=== PATIENT | male | born 1990 | race Caucasian/White ===

== ENCOUNTER 2024-02-19 08:13 | Emergency (ER) | payer OTHER, SELFPAY ==
[2024-02-19 08:16] VITALS: BP 139/85; PULSE 93; RESP 18; TEMP 36.3; O2SAT 96; BMI 44.9
--- OUTSIDE RECORDS SUMMARY | 2024-02-19 08:16 | XMS_ITS | Continuity of Care Document ---
Author Name NwHIN User [facility] Address Unknown Organization Unknown Address Unknown Encounters FILTER APPLIED:Only known Encounters with Admission Date within the last 5 years Encounter Location Admission Discharge Billing Code Bar Tacker Sewing Machine Jp allan Emergency [facility] Outpatient [facility] Emergency [facility]
--- NOTE | 2024-02-19 09:05 | ED_ITS ---
HPI - Skin/Abscess/Foreign Bdy General Date Seen: 02/19/24 Chief complaint: Skin/Abscess/Foreign Body Stated complaint: abscess R inner thigh Time Seen by Provider: 02/19/24 08:36 Source: patient Mode of arrival: ambulatory Limitations: no limitations History of Present Illness HPI narrative: Patient is a 33-year-old male presenting to emergency department for an abscess. He states he 1st noticed the abscess on . He was prescribed doxycycline but pharmacy could not fill the script until Tuesday night. Was told to come to the emergency department if it opens up. He noticed it open in the middle the night any had blood on his legs. Did not notice any purulent discharge. 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 Denies weakness, numbness, fevers, chills. Does state it is tender to the touch. No other concerns. Related Data Home Medications ?Medication ?Instructions ?Recorded ?Confirmed citalopram .ROUTE 02/19/24 metoprolol tartrate .ROUTE 02/19/24 rivaroxaban .ROUTE 02/19/24 topiramate .ROUTE 02/19/24 triamterene .ROUTE 02/19/24 Allergies Allergy/AdvReac Type Severity Reaction Status Date / Time corn oil Allergy Unknown Verified 02/19/24 08:24 lisinopril Allergy Unknown Verified 02/19/24 08:24 sertraline Allergy Unknown Verified 02/19/24 08:24 Review of Systems Narrative: Pertinent systems reviewed and were negative unless stated in HPI Exam Narrative: Exam Narrative: Const: Well-nourished, Well-developed, in mild distress Eyes: PERRL, no conjunctival injection, and symmetrical lids HENT: Atraumatic external nose and ears. Moist mucous membranes. Removed MSK:Extremities w/o deformity, Normal Active ROM Skin: Abscess to the right inner thigh. About 2 x 2 cm. Neuro: Normal Muscle tone, No focal neurological deficits. Psych: Awake, Alert, & Oriented x3. Appropriate mood and affect. Const: Vital Signs, click to edit/add: Vital Signs - 24 hr 02/19/24 08:16 Temperature 97.3 F L Pulse Rate [Right Pulse Oximeter] 93 Respiratory Rate 18 Blood Pressure [Ri ght Upper Arm] 139/85 Pulse Oximetry 96 Oxygen Delivery Me thod Room Air Course Vital Signs Vital signs: Initial Vital Signs Temperature 97.3 F L 02/19/24 08:16 Temperature Source Temporal Artery Scan 02/19/24 08:16 Pulse Rate 93 02/19/24 08:16 Pulse Rhythm Regular 02/19/24 08:16 Respiratory Rate 18 02/19/24 08:16 Blood Pressure 139/85 02/19/24 08:16 Blood Pressure Mean 103 02/19/24 08:16 Blood Pressure Position Sitting 02/19/24 08:16 Pulse Oximetry 96 02/19/24 08:16 Oxygen Delivery Method Room Air 02/19/24 08:16 Vital Signs Temperature 97.3 F L 02/19/24 08:16 Pulse Rate 93 02/19/24 08:16 Respiratory Rate 18 02/19/24 08:16 Blood Pressure 139/85 02/19/24 08:16 Pulse Oximetry 96 02/19/24 08:16 Oxygen Delivery Method Room Air 02/19/24 08:16 Temperature 97.3 F L 02/19/24 08:16 Pulse Rate 93 02/19/24 08:16 Respiratory Rate 18 02/19/24 08:16 Blood Pressure 139/85 02/19/24 08:16 Pulse Oximetry 96 02/19/24 08:16 Oxygen Delivery Method Room Air 02/19/24 08:16 MDM - Skin/Abscess/Foreign Bdy MDM Narrative Medical decision making narrative: Patient is a 33-year-old male presenting for abscess to his right inner thigh. No other concerns. No signs of systemic disease. I did ultrasound the area and there is abscess but is rather she hyperechoic. Will try and drain it. Did try and drain using a scalpel without any purulent discharge. Did flush the inside of the abscess and still only blood return. At this point he is safe for discharge and will continue on the doxycycline. He is agreeable to this plan. Discharge Plan Discharge Clinical Impression: Abscess Patient Disposition: Home, Self-Care Condition: Stable Instructions: Abscess (ED) Additional Instructions: Continue to take your previously prescribed antibiotic. Return to emergency department for new or worsening symptoms. Prescriptions: No Action metoprolol tartrate .ROUTE rivaroxaban [Xarelto] .ROUTE topiramate .ROUTE triamterene .ROUTE citalopram .ROUTE Stand Alone Forms: [facility] Info Instructions
--- OUTSIDE RECORDS SUMMARY | 2024-02-19 09:15 | XMS_ITS | Clinical Summary ---
Author Organization [facility] Address [address] [place] [address] Care Team Providers Care Church Official Name Role Phone Erna Sierra PA-C Primary Care Provider [phone]- [phone] Marin Liu PA-C Unavailable [phone] Allergies Active Allergy Reactions Criticality Noted Date Comments [place]-Containing Products 08/17/2022 Lisinopril Other (See Comments) Low 02/02/2018 Abdominal pain Sertraline Other (See Comments) 04/19/2013 Insomnia PN: insomnia Medications omeprazole (PRILOSEC) [address] capsule Take 40 mg by mouth daily Active escitalopram (LEXAPRO) 10 MG tablet Take 5 mg by mouth daily Active metoprolol tartrate (LOPRESSOR) 50 MG tablet Take 50 mg by mouth 2 times daily Active topiramate (TOPAMAX) 100 MG tablet Take 100 mg by mouth daily Active triamterene-HCTZ (DYAZIDE) 37.5-25 MG capsule Take 1 capsule by mouth every morning Active busPIRone (BUSPAR) 5 MG tablet Take 5 mg by mouth 2 times daily Active clomiPHENE (CLOMID) 50 MG tablet Take 25 mg by mouth At Bedtime Active Multiple Vitamins-Minerals (MULTIVITAMIN ADULTS PO) Take 1 tablet by mouth daily Active Acetaminophen (TYLENOL 8 HOUR ARTHRITIS PAIN PO) Take 1,300 mg by mouth 2 times daily as needed Active oxyCODONE (ROXICODONE) 5 MG tabletIndications: Bilateral pulmonary embolism (H) Take 0.5 tablets (2.5 mg) by mouth every 4 hours as needed 5 tablet 3 Active senna-docusate (SENOKOT-S/PERICOL DIANA) 8.6-50 MG tabletIndications: Bilateral pulmonary embolism (H) Take 1 tablet by mouth daily 15 tablet 3 Active cyclobenzaprine (FLEXERIL) 10 MG tablet Take 1 tablet (10 mg) by mouth every 8 hours as needed for muscle spasms (neck or back pain) No driving a car or drinking alcohol for 8 hours after taking this medication. 20 tablet 3 Active rivaroxaban ANTICOAGULANT (XARELTO ANTICOAGULANT) 20 MG TABS tabletIndications: Bilateral pulmonary embolism (H) Take 1 tablet (20 mg) by mouth daily (with dinner) 90 tablet 3 4 Active Active Problems Problem Noted Date Diagnosed Date Bilateral pulmonary embolism 08/17/2022 Encounters Date Type Department Care Team Description 02/11/2024 MyC Medical Advice [facility] for Bleeding [facility] Disorders [address] [place] [phone] Marin Liu, PAToy Bilateral pulmonary embolism (H) (Primary Dx) 12/16/2023 Telephone [facility] for [facility]ot[facility] Disorders [address] [place] [phone] Piyush Mendoza Call To Schedule Appointment (Called to schedule in person or video annual clot with Marin/) 12/09/2023 Telephone [facility] for Bleeding [facility]otting Disorders [address] [place] [phone] Piyush Mendoza Call To Schedule Appointment (Called to schedule in person or video annual clot with Marin ) from Last 3 Months Immunizations Name Administration Dates Next Due COVID-19 MONOVALENT 12+ (Pfizer) 12/14/2020,02/08,02/07/2020 Social History Tobacco Use Types Packs/Day Years Used Date Smoking Tobacco: Passive Smo ke Exposure - Never Smoker Smokeless Tobacco: Current Alcohol Use Standard Drinks/Week Comments Yes 0 (1 standard drink = 0.6 oz pur e alcohol) twice per week Adolescent Education Answer Date Record ed Getting School Help Needed Not on file 10/29 Sex and Gender Information Value Date Recorded Sex Assigned at Not on file Legal Sex Male 9:12 PM TRAINING SYSTEMS OFFICER Gender Identity Not on file Sexual Orientation Not on file Last Filed Vital Signs Vital Sign Reading Time Taken Comments Blood Pressure 133/97 05/23/2023 3:12 AM CDT Pulse 105 05/23/2023 3:12 AM CDT Temperature 36.4 C (97.5 F) 05/23/2023 3:12 AM CDT Respiratory Rate 18 05/23/2023 3:12 AM CDT Oxygen Saturation 98% 05/23/2023 3:12 AM CDT Inhaled Oxygen Concentration - - Weight 170.2 kg (375 lb 3.6 oz) 05/23/2023 3:12 AM CDT Height 188 cm (6' 2) 05/23/2023 3:12 AM CDT Body Mass Index 48.18 05/23/2023 3:12 AM CDT Plan of Treatment Upcoming Encounters Date Type Department Care Team (Late st Contact Info) Description 03/02/2024 9:00 AM TRAINING SYSTEMS OFFICER Lab [facility] [address] [place] [address] 03/08/2024 2:00 PM TRAINING SYSTEMS OFFICER Virtual Visit [facility] for Ble[facility] [address] [place] [phone] Marin Liu, PAKellieC [address] [facility] [address] [place], [place] [phone] Health Maintenance Due Date Last Done Comments ADVANCE CARE PLANNING 1990 ANNUAL REVIEW OF HM ORDERS 1990 HEPATITIS B IMMUNIZATION (1 of 3 - 19+ 3-dose series) 2009 YEARLY PREVENTIVE VISIT 12/21/2018 12/21/2017 COVID-19 Vaccine ( season) 2023 11/09/2021, 12/14/2020, 02/28/2020, Additional history exists PHQ-2 (once per calendar year) 2024 DTAP/TDAP/TD IMMUNIZATION (2 - Td or Tdap) 08/02/2024 08/02/2014 RSV VACCINE (1 - 1-dose 75+ series) 2065 HIV SCREENING Completed 12/21/2017 HEPATITIS C SCREENING Completed 04/15/2023 INFLUENZA VACCINE Completed 02/09/2024, , 11/09/2021, Additional history exists HPV IMMUNIZATION Aged Out No longer e ligible based on patient's age to complete this topic MENINGITIS IMMUNIZATION Aged Out No l onger eligible based on patient's age to complete this topic Pneumococcal Vaccine: Pediatrics (0 to 5 Years) and At-Risk Patients (6 to 49 Years) Aged Out No longer eligible based on patient's age to complete this topic RSV MONOCLONAL ANTIBODY Aged Out No l onger eligible based on patient's age to complete this topic [facility] WC OTHER [facility] PROGRESSIVE [employer] Advance Directives For more information, please contact: [phone] * Full Code (Latest Code Status on File) Date Activated Date Inactivated Comments 08/17/2022 12:30 PM 08/17/2022 6:49 PM All basic a nd advanced life-sustaining interventions are performed as appropriate Question Answer Comments Code status determined by: Discussion with patie nt/ legal decision maker Care Teams Church Official Relationship Specialty Start Date End Date Erna Sierra PA-C [address] [place] [address] PCP - General 08/27/22 Marin Liu PA-C [address] [address] Assigned Cancer Care Provider 09/11/22
--- OUTSIDE RECORDS SUMMARY | 2024-02-19 09:15 | XMS_ITS | Encounter Summary ---
Author Organization [facility] Address [address], [place] [address] Care Team Providers Care Proj Engineer Name Role Phone Erna Sierra PA-C Primary Care Provider [phone]- [phone] Encounter Details Date Type Department Care Team (Late st Contact Info) Description 01/30/2019 Correspondence External to External, [place] [address] NOT MEDICALLY CERTIFIED -TSA Social History Tobacco Use Types Packs/Day Years Used Date Smoking Tobacco: Former Cigarettes Q uit: 02/07/2014 Smokeless Tobacco: Former Chew Quit: 02/07/2014 Alcohol Use Standard Drinks/Week Comments Yes 0 (1 standard drink = 0.6 oz pur e alcohol) 3 to 4 week Sex and Gender Information Value Date Recorded Sex Assigned at Not on file Gender Identity Not on file Sexual Orientation Not on file documented as of this encounter Plan of Treatment Upcoming Encounters Date Type Department Care Team (Late st Contact Info) Description 02/20/2024 9:30 AM VIBRATOR EQUIPMENT TESTER Appointment [facility] [address] General Surgery [address] [place] [address] MD [address] [place] [address] 03/13/2024 1:00 PM VIBRATOR EQUIPMENT TESTER Appointment [facility] [address] [place] [address] Erna Sierra PA-C [address] [place] [address] 03/30/2024 11:30 AM VIBRATOR EQUIPMENT TESTER Appointment Endoscopy at [facility] [address] [facility] [address] [facility] [place] [address] Doe Landeros MD [address] [place] [address] 08/08/2024 1:00 PM CDT Telemedicine Specialty Center [address] [place] [address]. [place], [place] [phone] Khadijah Tamayo MD [address] [place] [phone] documented as of this encounter Visit Diagnoses Not on filedocumented in this encounter Additional Health Concerns Infection Onset Date Last Indicated Resolved Time R/O COVID19 11/26/2019 11/26/2019 11/27/2019 6:46 AM CDT R/O COVID19 02/19/2021 02/19/2021 02/20/2021 2:03 AM VIBRATOR EQUIPMENT TESTER R/O COVID19 04/21/2021 04/21/2021 04/21/2021 8:52 PM CDT R/O COVID19 04/23/2021 04/23/2021 04/23/2021 6:52 PM CDT R/O COVID19 04/27/2021 04/27/2021 04/27/2021 6:03 PM CDT R/O COVID19 06/08/2021 06/08/2021 06/09/2021 12:3 5 AM CDT R/O COVID19 06/23/2021 06/23/2021 06/23/2021 8:31 PM CDT COVID19 06/23/2021 06/23/2021 07/04/2021 3:17 AM CDT R/O COVID19 03/01/2022 03/01/2022 03/01/2022 4:19 PM VIBRATOR EQUIPMENT TESTER documented as of this encounter Care Teams Proj Engineer Relationship Specialty Start Date End Date Erna Sierra PA-C [address] [place] [address] PCP - General Physician Mother Baby Rn 01/10/20 documented as of this encounter
--- OUTSIDE RECORDS SUMMARY | 2024-02-19 09:15 | XMS_ITS | Encounter Summary ---
Author Organization [facility] Address [address], [place] [address] Care Team Providers Care Mold Swabber Name Role Phone Erna Sierra PA-C Primary Care Provider [phone]- [phone] Encounter Details Date Type Department Care Team (Late st Contact Info) Description 08/22/2018 Correspondence Specialty Center 39[address] Pulmonary Medicine [address] [place] [address] Neurock, Veronica Godwin, REGISTERED OCCUPATIONAL THERAPIST, SOIL CHECKER [address] [place] [address] [address]IVE COMMERCIAL VEHICLE Social History Tobacco Use Types Packs/Day Years [...] st Contact Info) Description 02/20/2024 9:30 AM STATISTICAL MODELER Appointment Bronwyn Coats [place] [address] General Surgery [address] [place] [address] MD 14[address] [facility] [place] [address] 03/13/2024 1:00 PM STATISTICAL MODELER Appointment [facility] [address] [place] [address] Erna Sierra PA-C [address] [place] [address] 03/30/2024 11:30 AM STATISTICAL MODELER Appointment Endoscopy at [facility] [place] [address] [facility] [address] [place] [address]. [place] [address] Doe Landeros MD [address] [place] [address] 08/08/2024 1:00 PM CDT Telemedicine Specialty Center [address] [place] [address]. [place], [place] [phone] Khadijah Tamayo MD [address] [place] [phone] documented as of this encounter Visit Diagnoses Not on filedocumented in this encounter Additional Health Concerns Infection Onset Date Last Indicated Resolved Time R/O COVID19 11/26/2019 11/26/2019 11/27/2019 6:46 AM CDT R/O COVID19 02/19/2021 02/19/2021 02/20/2021 2:03 AM STATISTICAL MODELER R/O COVID19 04/21/2021 04/21/2021 04/21/2021 8:52 PM CDT R/O COVID19 04/23/2021 04/23/2021 04/23/2021 6:52 PM CDT R/O COVID19 04/27/2021 04/27/2021 04/27/2021 6:03 PM CDT R/O COVID19 06/08/2021 06/08/2021 06/09/2021 12:3 5 AM CDT R/O COVID19 06/23/2021 06/23/2021 06/23/2021 8:31 PM CDT COVID19 06/23/2021 06/23/2021 07/04/2021 3:17 AM CDT R/O COVID19 03/01/2022 03/01/2022 03/01/2022 4:19 PM STATISTICAL MODELER documented as of this encounter Care Teams Mold Swabber Relationship Specialty Start Date End Date Erna Sierra PA-C [address] [place] [address] PCP - General Physician Admissions Consultant 01/10/20 documented as of this encounter
--- OUTSIDE RECORDS SUMMARY | 2024-02-19 09:15 | XMS_ITS | Encounter Summary ---
Author Organization [facility] Address [address] [address] Care Team Providers Care Measurement And Verification Engineer Name Role Phone Erna Sierra PA-C Primary Care Provider [phone]- [phone] Encounter Details Date Type Department Care Team (Late st Contact Info) Description 08/11/2018 Correspondence None No Primary/Referring, Phy REFERRAL AND AUTH Social History Tobacco Use Types Packs/Day Years [...] st Contact Info) Description 02/20/2024 9:30 AM DATA ENTRY ASSOCIATE Appointment Bronwyn Coats [place] [address] General Surgery [address] [place] [address] MD 14[address] [place] [address] 03/13/2024 1:00 PM DATA ENTRY ASSOCIATE Appointment [facility] [address] [place] [address] Erna Sierra PA-C [address] [place] [address] 03/30/2024 11:30 AM DATA ENTRY ASSOCIATE Appointment Endoscopy at [facility] at [facility] [place] [place] [address] [facility] [place] [address] Doe Landeros MD [address] [place], [place] [address] 08/08/2024 1:00 PM CDT Telemedicine Specialty Center [address] [place] [address]. [place], [place] [phone] Khadijah Tamayo MD [address] [place] [phone] documented as of this encounter Visit Diagnoses Not on filedocumented in this encounter Additional Health Concerns Infection Onset Date Last Indicated Resolved Time R/O COVID19 11/26/2019 11/26/2019 11/27/2019 6:46 AM CDT R/O COVID19 02/19/2021 02/19/2021 02/20/2021 2:03 AM DATA ENTRY ASSOCIATE R/O COVID19 04/21/2021 04/21/2021 04/21/2021 8:52 PM CDT R/O COVID19 04/23/2021 04/23/2021 04/23/2021 6:52 PM CDT R/O COVID19 04/27/2021 04/27/2021 04/27/2021 6:03 PM CDT R/O COVID19 06/08/2021 06/08/2021 06/09/2021 12:3 5 AM CDT R/O COVID19 06/23/2021 06/23/2021 06/23/2021 8:31 PM CDT COVID19 06/23/2021 06/23/2021 07/04/2021 3:17 AM CDT R/O COVID19 03/01/2022 03/01/2022 03/01/2022 4:19 PM DATA ENTRY ASSOCIATE documented as of this encounter Care Teams Measurement And Verification Engineer Relationship Specialty Start Date End Date Erna Sierra PA-C [address] [place] [address] PCP - General Physician Supply Chain Technician 01/10/20 documented as of this encounter
--- OUTSIDE RECORDS SUMMARY | 2024-02-19 09:15 | XMS_ITS | Referral Summary ---
Author Organization [facility] Address [address] [place] [address] Care Team Providers Care Explosive Ordnance Handler Name Role Phone Erna Sierra PA-C Primary Care Provider +1- [phone] Marin Liu PA-C Unavailable [phone] Encounters Date Type Department Care Team Description 02/11/2024 MyC Medical Advice [facility] for Bleeding [facility] Clotting Disorders [address] [place] [phone] Marin Liu PA-C Bilateral pulmonary embolism (H) (Primary Dx) 12/16/2023 Telephone [facility] for Ble[facility] Clot[facility] Disorders [address] [facility] [address] [place] [phone] Piyush Mendoza Call To Schedule Appointment (Called to schedule in person or video annual clot with Marin/) 12/09/2023 Telephone [facility] for [facility] Disorders [address] [address] [place] [phone] Piyush Mendoza Call To Schedule Appointment (Called to schedule in person or video annual clot with Marin ) from Last 3 Months Allergies Active Allergy Reactions Criticality Noted Date Comments [place]-Containing Products 08/17/2022 Lisinopril Other (See Comments) Low [...] Date Diagnosed Date Bilateral pulmonary embolism 08/17/2022 Immunizations Name Administration Dates Next Due COVID-19 [...] on file Legal Sex Male 9:12 PM SOCIAL INSURANCE SPECIALIST Gender Identity Not on file Sexual Orientation [...] st Contact Info) Description 03/02/2024 9:00 AM SOCIAL INSURANCE SPECIALIST Lab [facility] [address] [place] [phone] 03/08/2024 2:00 PM SOCIAL INSURANCE SPECIALIST Virtual Visit [facility] for Bleeding and Clotting Disorders [address] [facility] [address] [place] [phone] Marin Liu, PAToy [address] [facility] [address] [place], [place] [address] Insurance [employer] OTHER [place] PROGRESSIVE [employer] INSURANCE Member Subscriber Plan / Payer (Ef fective 2012-Present) Name:Koffi Berger Relation to Subscriber:Employee Name:USHA ROBINS Date of :1990 (Home) [address]: [address] [place] [address] [address] [place] [address] Payer ID:[id number] Group ID:Not on file Type:Not on file Address: [address] Advance Directives For more information, please contact: [phone] * Full Code (Latest Code Status on File) Date Activated Date Inactivated Comments 08/17/2022 12:30 PM 08/17/2022 6:49 PM All basic a nd advanced life-sustaining interventions are performed as appropriate Question Answer Comments Code status determined by: Discussion with patie nt/ legal decision maker Care Teams Explosive Ordnance Handler Relationship Specialty Start Date End Date Erna Sierra PA-C [address] [place] [address] PCP - General 08/27/22 Marin Liu PA-C [address] [address] Assigned Cancer Care Provider 09/11/22
--- OUTSIDE RECORDS SUMMARY | 2024-02-19 09:15 | XMS_ITS | Encounter Summary ---
Author Organization [facility] Address [address] [address] Care Team Providers Care Campaign Advisor Name Role Phone Erna Sierra PA-C Primary Care Provider +1- [phone] Reason for Referral * Procedure/Equipment (Routine) - Incomplete Specialty Diagnoses / Procedures Referred By Contac t Referred To Contact Diagnoses Cutaneous abscess of right lower extremity Procedures US Lower Extremity Rt Soft Tissue Dione Lund PA-C [address] [place] [address] Referral ID Status Reason Start Date Expiration Date V isits Requested Visits Authorized [id number] Incomplete 02/16/2024 05/17/2025 1 1 IFF * Consult/Transfer Care (Routine) - New Request Specialty Diagnoses / Procedures Referred By Contac t Referred To Contact Diagnoses Cutaneous abscess of right lower extremity Dione Lund PA-C [address] [place] [address] Referral ID Status Reason Start Date Expiration Date V isits Requested Visits Authorized [id number] New Request 02/16/2024 05/17/2025 1 1 Scheduling Instructions Your clinician has recommended an appointment with [facility]. You can quickly make your appointment online at [facility] [employer]/schedule. You can also call [phone] for help scheduling your appointment. We suggest you call your health insurance company about your coverage and benefits for this appointment. Question Answer Appointment Urgency? Within 2 Days (designee calls specialty to coordinate care) Reason for visit? Abscess of right thigh, concern for soft tissue involvement. Patient is anticoagulated IFF Reason for Visit * Reason Comments Lump Pt reports painful r ed lump on inside of R thigh, first noticed yesterday. Encounter Details Date Type Department Care Team (Late st Contact Info) Description 02/16/2024 11:00 AM BAILIFF Office Visit [facility] [address] [place], [place] [phone] Dione Lund PA-C [address] [place] [address] Cutaneous abscess of right lower extremity (Primary Dx) Social History Tobacco Use Types Packs/Day Years Used Date Smoking Tobacco: Former Cigarettes 0.5 5 0 2010 - 06/11/2014 Passive Smoke Exposure: Never Smokeless Tobacco: Former Chew Quit: 02/07/2014 Alcohol Use Standard Drinks/Week Comments Yes 0 (1 standard drink = 0.6 oz pur e alcohol) occ PHQ-2 Answer Date Recorded PHQ-2 Score 0 02/18/2023 Sex and Gender Information Value Date Recorded Sex Assigned at Not on file Gender Identity Not on file Sexual Orientation Not on file documented as of this encounter Last Filed Vital Signs Vital Sign Reading Time Taken Comments Blood Pressure 128/86 02/16/2024 10:56 AM BAILIFF Pulse 75 02/16/2024 10:56 AM BAILIFF Temperature 36.9 C (98.4 F) 02/16/2024 10:56 AM BAILIFF Respiratory Rate - - Oxygen Saturation - - Inhaled Oxygen Concentration - - Weight - - Height - - Body Mass Index - - documented in this encounter Patient Instructions * Patient Instructions* Dione Lund PA-C - 02/16/2024 11:00 AM BAILIFF It was a pleasure to see you in clinic today! Doxycycline 100mg twice a day for 7 days Call to schedule general surgery consultation If it starts to drain on its own, go to the urgent care or ED IFF documented in this encounter Progress Notes * Dione Lund PA-C - 02/16/2024 11:00 AM CSTAddended by: DIONE LUND on: 02/16/2024 11:28 AM Modules accepted: Orders IFF * Dione Lund PA-C - 02/16/2024 11:00 AM CST Images from the original note were not included. Koffi Berger [id number] 1990 SUBJECTIVE: KOFFI BERGER is a 33 y.o. male who presents to the clinic for evaluation regarding a skin lesion that he has concern regarding cyst/abscess. He noticed a tender spot on the interior of his right thigh a few days ago. However, yesterday, began to notice redness, irritation, pain to the area. Pain is 5 to 6/10 with movement, minimal without pain. He denies any systemic symptoms such as fevers, chills. He is anticoagulated due to history of bilateral pulmonary embolisms. Currently taking Ctiagrd31 mg daily. He denies any similar lesions elsewhere on his body such as the groin, axilla. Feels like the lesion has been getting more painful due to consistent irritation and rubbing with his work p ants given the location. Denies any other concerns today. Of note, he has taking weekly Diflucan and using topical ketoconazole, topical nystatin for other devon intertrigo. He was evaluated for Devon intertrigo one-week ago though the lesion in his right thigh that has not present at that time. PAST MEDICAL AND SURGICAL HISTORY REVIEWED IN [facility] FAMILY AND SOCIAL HISTORY REVIEWED IN [facility] MEDICATIONS: Outpatient Medications Prior to Visit Medication Sig acetaminophen (TYLENOL) 325 MG tablet Take 2 Tablets (650 mg) by mouth every 6 hours as needed for Pain. busPIRone (BUSPAR) 5 MG tablet take one tablet by mouth twice a day clomiPHENE (CLOMID) 50 MG tablet Take 0.5 Tablets (25 mg) by mouth daily. Dicyclomine HCl (BENTYL OR) Take 1 Tab by mouth as needed. econazole nitrate (SPECTAZOLE) 1 % cream Apply to affected area daily Indications: Athlete's Foot (Patient not taking: Reported on 08/25/2023) escitalopram (LEXAPRO) 10 MG tablet TAKE ONE TABLET BY MOUTH EVERY DAY fluconazole (DIFLUCAN) 200 MG tablet Take 1 Tablet (200 mg) by mouth once a week. For 4 weeks hyoscyamine (LEVSIN/SL) 0.125 MG sublingual tablet Take 1-2 Tablets by mouth every 4 hours as needed. insulin pen needle ([employer] ULTRAFINE ANTONIO 2ND GEN) 32G X 4 MM Use to inject Saxenda as instructed. (Patient not taking: Reported on 02/16/2024) ketoconazole (NIZORAL) 2 % cream Apply topically daily. Indications: Ringworm of Groin Area, Ringworm of the Body LAGEVRIO 200 MG capsule Take by mouth. (Patient not taking: Reported on 02/09/2024) metoprolol tartrate (LOPRESSOR) 50 MG tablet take one tablet by mouth twice a day miconazole (DESENEX) 2 % powder Apply topically twice daily to underside of abdomen (Patient not taking: Reported on 02/09/2024) multivitamin (THERAGRAN) tablet Take 1 Tablet by mouth daily. nystatin (MYCOSTATIN) 358602 UNIT/GM powder Apply topically two times a day. omeprazole (PRILOSEC) 40 MG capsule TAKE ONE CAPSULE BY MOUTH EVERY DAY ondansetron (ZOFRAN) 4 MG tablet Take 1 Tablet (4 mg) by mouth every 8 hours as needed. rivaroxaban (XARELTO) 20 MG tablet Take 1 Tablet (20 mg) by mouth daily. sildenafil (REVATIO) 20 MG tablet Take 1 Tablet (20 mg) by mouth every 24 hours as needed. tirzepatide-weight management (ZEPBOUND) 15 MG/0.5ML pen injection Inject 0.5 mL (15 mg) subcutaneously once every week. topiramate (TOPAMAX) 100 MG tablet Take 1 Tablet (100 mg) by mouth daily. triamterene-hydrochlorothiazide (MAXZIDE-25) 37.5-25 MG tablet take one tablet by mouth every day [DISCONTINUED] clindamycin (CLEOCIN T) 1 % lotion Apply to rash area at bedtime. (Patient not taking: Reported on 08/25/2023) No facility-administered medications prior to visit. ALLERGIES: Gardner oil, Sertraline, and Lisinopril ROS:NO fever, chills, unexplained fatigue. No chest pain, shortness of breath, palpitations. No abdominal pain, nausea, vomiting, diarrhea. No black or bloody stools. No urinary symptoms. No abnormalheadaches or dizziness. OBJECTIVE BP 128/86 (BP Location: Right Arm, BP Cuff Size: Large) Pulse 75 Temp 36.9 ??C (98.4 ??F) (Oral) GENERAL: This is a well-developed, well-nourished male in no acute distress. HEENT: Head AT/NC. External ears normal. TMs clear, bony landmarks visible. Nares patent, turbinates without lesions or drainage. Oropharynx non- erythematous. Uvula midline. Dentition in good condition. NECK: Supple, thyroid without enlargement or nodules. No lymphadenopathy. LUNGS: Symmetrical expansion, CTA in all kaminski bilaterally. HEART: Regular rate and rhythm. No murmurs. ABDOMEN: Soft, non-tender, no guarding or masses. No HSM. EXTREMITIES: No edema. Strong and equal peripheral pulses. SKIN: Fluctuant, approximately 1 in x 1 in abscess of the right medial thigh with overlying cellulitis. See below PSYCH: Well-oriented. Appropriate mood and affect. NEURO: Speech and gait are normal. [facility] right [facility] thigh [employer] [facility] Location: right medial thigh ASSESSMENT/PLAN: Koffi was seen today for lump. Diagnoses and all orders for this visit: Cutaneous abscess of right lower extremity - doxycycline monohydrate (MONODOX) 100 MG capsule; Take 1 Capsule (100 mg) by mouth two times a day for 7 days. - Surgery Consult-Adults - US Lower Extremity Rt Soft Tissue; Future Discussed with the patient that his skin lesion is consistent with an abscess with overlying cellulitis. At this time given unknown depth of the lesion, concern for soft tissue involvement and patient's anticoagulation status, I recommend urgent follow up with with general surgeon for incision and drainage rather than performing incision and drainage in the office today. In the meantime, should start with doxycycline 100 mg b.i.d.. Additionally recommend ultrasound of the area for further evaluation prior to his surgical consultation. If the lesion starts to drain on its own or you develop systemic symptoms such as fevers, chills, recommend urgent care or emergency department follow up. Dione uLnd PA-C NB: A voice recognition dictation system was used for this note. Please excuse any typographical errors. IFF documented in this encounter Plan of Treatment Upcoming Encounters Date Type Department Care Team (Late st Contact Info) Description 02/20/2024 9:30 AM BAILIFF Appointment [facility] [address] General Surgery [address] [place] [address] MD [address] [place] [address] 03/13/2024 1:00 PM BAILIFF Appointment [facility] [address] [place], [place] [phone] Erna Sierra PA-C [address] [place] [address] 03/30/2024 11:30 AM BAILIFF Appointment Endoscopy at [facility] [place] at [facility] [address] [facility] [place] [address] [place] [address] [place] [address] 08/08/2024 1:00 PM CDT [facility] [address] [facility] [address] [place] [address]. [place] [address] Khadijah Tamayo MD [address] [place] [phone] Scheduled Referrals Name Type Priority Associated Diagnoses Orde r Schedule Surgery Consult-Adults Referral Routine Cutaneous abscess of right lower extremity Ordered: 02/16/2024 documented as of this encounter Results * US Lower Extremity Rt Soft Tissue (02/17/2024 2:00 PM BAILIFF) Anatomical Region Laterality Modality Lower Extremity Ultrasound 02/17/2024 1:42 PM BAILIFF Narrative 02/17/2024 2:10 PM BAILIFF Soft tissue ultrasound of the medial right upper leg COMPARISON: None FINDINGS: 2.8 x 2.7 x 1.3 cm heterogeneous collection in the subcutaneous fat with peripheral hyperemia. Findings would be compatible with abscess the appropriate clinical setting. Procedure Note Julio Cesar Isbell MD - 02/17/2024 Soft tissue ultrasound of the medial right upper leg COMPARISON: None FINDINGS: 2.8 x 2.7 x 1.3 cm heterogeneous collection in the subcutaneousfat with peripheral hyperemia. Findings would be compatible with abscessthe appropriate clinical setting. Dione Lund PA-C RAD US documented in this encounter Visit Diagnoses Diagnosis Cutaneous abscess of right lower extremity- Primary Cellulitis and abscess of leg, except foot Cutaneous abscess of right lower extremity Cellulitis and abscess of leg, except foot documented in this encounter Care Teams Campaign Advisor Relationship Specialty Start Date End Date Erna Sierra PA-C [address] [place] [address] PCP - General Physician Sports Medicine Specialist 01/10/20 documented as of this encounter
--- OUTSIDE RECORDS SUMMARY | 2024-02-19 09:15 | XMS_ITS | Encounter Summary ---
Author Organization [facility] Address [address], [place] [address] Care Team Providers Care Revenue Director Name Role Phone Erna Sierra PA-C Primary Care Provider [phone]- [phone] Encounter Details Date Type Department Care Team (Late st Contact Info) Description 08/30/2018 Correspondence None No Primary/Referring, Phy STOP BANG DOT MARTIR PROTOCOL Social History Tobacco Use Types Packs/Day Years [...] st Contact Info) Description 02/20/2024 9:30 AM WEEDER THINNER Appointment [facility] [address] General Surgery [address] [place] [address] Martinez aLne MD [address] [place], [place] [address] 03/13/2024 1:00 PM WEEDER THINNER Appointment [facility] [place] [address] [facility] [place] [address] Erna Sierra PA-C [address] [place] [address] 03/30/2024 11:30 AM WEEDER THINNER Appointment Endoscopy at [facility] at [facility] [address] [facility] [address] [facility] [place] [address] Doe Landeros MD [address] [place], [place] [address] 08/08/2024 1:00 PM CDT Telemedicine Specialty Center [address] [place] [address]. [place], [place] [phone] Khadijah Tamayo MD [address] [place], [place] [phone] documented as of this encounter Visit Diagnoses Not on filedocumented in this encounter Additional Health Concerns Infection Onset Date Last Indicated Resolved Time R/O COVID19 11/26/2019 11/26/2019 11/27/2019 6:46 AM CDT R/O COVID19 02/19/2021 02/19/2021 02/20/2021 2:03 AM WEEDER THINNER R/O COVID19 04/21/2021 04/21/2021 04/21/2021 8:52 PM CDT R/O COVID19 04/23/2021 04/23/2021 04/23/2021 6:52 PM CDT R/O COVID19 04/27/2021 04/27/2021 04/27/2021 6:03 PM CDT R/O COVID19 06/08/2021 06/08/2021 06/09/2021 12:3 5 AM CDT R/O COVID19 06/23/2021 06/23/2021 06/23/2021 8:31 PM CDT COVID19 06/23/2021 06/23/2021 07/04/2021 3:17 AM CDT R/O COVID19 03/01/2022 03/01/2022 03/01/2022 4:19 PM WEEDER THINNER documented as of this encounter Care Teams Revenue Director Relationship Specialty Start Date End Date Erna Sierra PA-C [address] [place] [address] PCP - General Physician Stump Shooter 01/10/20 documented as of this encounter
--- OUTSIDE RECORDS SUMMARY | 2024-02-19 09:15 | XMS_ITS | Encounter Summary ---
Author Organization [place] Address [address] [place] [address] Care Team Providers Care Golf Tournament Consultant Name Role Phone Erna Sierra PA-C Primary Care Provider +1- [phone] Marin Liu PA-C Unavailable [phone] Encounter Details Date Type Department Care Team (Late st Contact Info) Description 02/18/2023 MyC Medical Advice [facility] Disorders [address] [address] [address] [place] [phone] Marin Liu PA-C [address] [place] [address] Bilateral pulmonary embolism (H) (Primary Dx) Social History Tobacco Use Types [...] on file Legal 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 Gender Identity Not on file Sexual Orientation Not on file documented as of this encounter Plan of Treatment Upcoming Encounters Date Type Department Care Team (Late st Contact Info) Description 03/02/2024 9:00 AM CONSTRUCTION INSPECTOR Lab [facility] [address] [place] [address] 03/08/2024 2:00 PM CONSTRUCTION INSPECTOR Virtual Visit [facility] [address] [place] [address] [address] [place] [address] Marin Liu PA-C [address] [place] [address] [address] [place] [address] documented as of this encounter Results * (ABNORMAL) Hepatic function panel (02/28/2023 9:31 AM CONSTRUCTION INSPECTOR) Protein Total 7.6 6.4 - 8.3 g/dL 02/28/2023 6:01 PM CONSTRUCTION INSPECTOR [facility] Albumin 4.0 3.5 - 5.2 g/dL 02/28/2023 6:01 PM CONSTRUCTION INSPECTOR [facility] Bilirubin Total 0.4 <=1.2 mg/dL 02/28/2023 6:01 PM CONSTRUCTION INSPECTOR [facility] Alkaline Phosphatase 69 40 - 150 U/L 02/28/2023 6:01 PM CONSTRUCTION INSPECTOR [facility] Comment:Reference intervals for this test were updated on 12/21/2022 to more accurately reflect our healthy population. There may be differences in the flagging of prior results with similar values performed with this method. Interpretation of those prior results can be made in the context of the updated reference intervals. AST 46(H) 0 - 45 U/L 02/28/2023 6:01 PM CONSTRUCTION INSPECTOR [facility] Comment:Reference intervals for this test were updated on 07/19/2022 to more accurately reflect our healthy population. There may be differences in the flagging of prior results with similar values performed with this method. Interpretation of those prior results can be made in the context of the updated reference intervals. ALT 72(H) 0 - 70 U/L 02/28/2023 6:01 PM CONSTRUCTION INSPECTOR [facility] Comment:Reference intervals for this test were updated on 07/19/2022 to more accurately reflect our healthy population. There may be differences in the flagging of prior results with similar values performed with this method. Interpretation of those prior results can be made in the context of the updated reference intervals. Bilirubin Direct <0.20 0.00 - 0.30 mg/dL 02/28/2023 6:01 PM CONSTRUCTION INSPECTOR [facility] Blood BLOOD SPECIMEN / Unknown Venipuncture / Unknown 02/28/2023 9:31 AM CONSTRUCTION INSPECTOR 02/28/2023 9:32 AM CONSTRUCTION INSPECTOR us Marin Liu PA-C LAB - BLOOD ORDERABLES Final R esult [facility] [address] [facility], [address] [address], [facility] [phone] documented in this encounter Visit Diagnoses Diagnosis Bilateral pulmonary embolism (H)- Primary Other pulmonary embolism and infarction documented in this encounter Care Teams Golf Tournament Consultant Relationship Specialty Start Date End Date Erna Sierra PA-C [address] [place] [address] PCP - General 08/27/22 Marin Liu PA-C [address] [place] [address] Assigned Cancer Care Provider 09/11/22 documented as of this encounter
--- OUTSIDE RECORDS SUMMARY | 2024-02-19 09:15 | XMS_ITS | Encounter Summary ---
Author Organization [place] Address [address] [place] [address] Care Team Providers Care Remote Sensing Research Scientist Name Role Phone Erna Sierra PA-C Primary Care Provider [phone]- [phone] Marin Liu PA-C Unavailable [phone] Encounter Details Date Type Department Care Team (Late st Contact Info) Description 02/11/[address] 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 Gender Identity Not on file Sexual Orientation Not on file documented as of this encounter Miscellaneous Notes * Addendum Note - Hannah Sosa RN - 02/11/2024 6:42 PM CSTAddended by: HANNAH SOSA on: 02/13/2024 09:33 AM Modules accepted: Orders RVISOR [employer]ARM documented in this encounter Plan of Treatment Upcoming Encounters Date Type Department Care Team (Late st Contact Info) Description 03/02/2024 9:00 AM SUPERVISOR TURKEY FARM Lab [facility] [address] [place] [address] 03/08/2024 2:00 PM SUPERVISOR TURKEY FARM Virtual Visit [facility] for Bleeding and Clot[facility] Disorders [address] [place] [address] [address] [place] [address] Marin Liu PA-C [address] [place] [address] Scheduled Orders Name Type Priority Associated Diagnoses Orde r Schedule Creatinine Lab Routine Bilateral pulmonary embolism (H) Expected: 02/13/2024 (Approximate), Expires: 02/12/2025 documented as of this encounter Visit Diagnoses Diagnosis Bilateral pulmonary embolism (H)- Primary Other pulmonary embolism and infarction documented in this encounter Care Teams Remote Sensing Research Scientist Relationship Specialty Start Date End Date Eran Sierra PA-C [address] [place] [address] PCP - General 08/27/22 Marin Liu PA-C [facility] [place] [address] Assigned Cancer Care Provider 09/11/22 documented as of this encounter
--- OUTSIDE RECORDS SUMMARY | 2024-02-19 09:15 | XMS_ITS | Continuity of Care Document ---
Author Name [facility] Address Unknown Organization Unknown Address Unknown Encounters FILTER APPLIED:Only known Encounters with Admission Date within the last 5 years Encounter Location Admission Discharge Billing Code Call Center Manager Jp allan [facility]
--- OUTSIDE RECORDS SUMMARY | 2024-02-19 09:15 | XMS_ITS | Encounter Summary ---
Author Organization [facility] Address [address] [address] Care Team Providers Care Sound Designer Name Role Phone Erna Sierra PA-C Primary Care Provider [phone]- [phone] Reason for Referral * Procedure/Equipment (Routine) - New Request Specialty Diagnoses / Procedures Referred By Contlidya t Referred To Contact Diagnoses Polyp of colon, unspecified part of colon, unspecified type Procedures Colonoscopy Screening Doe Landeros MD [address] [place] [address] Referral ID Status Reason Start Date Expiration Date V isits Requested Visits Authorized [id number] New Request 12/19/2023 12/18/2025 1 1 T PROTECTION OFFICER Encounter Details Date Type Department Care Team (Late st Contact Info) Description 12/19/2023 Notes/Orders Endoscopy at [facility] at [address] [place], [place] [address] Doe Landeros MD [address] [place] [phone] Polyp of colon, unspecified part of colon, unspecified type (Primary Dx) Social History Tobacco Use Types [...] st Contact Info) Description 02/20/2024 9:30 AM PLANT PROTECTION OFFICER Appointment [facility] [place] [address] General Surgery [address] [place] [phone] [address] MD [address] [place] [address] 03/13/2024 1:00 PM PLANT PROTECTION OFFICER Appointment [facility] [address] [place] [address] Erna Sierra PA-C [address] [place] [address] 03/30/2024 11:30 AM PLANT PROTECTION OFFICER Appointment Endoscopy at [facility] at [place] [address] [place] [address] Doe Landeros MD [address] [place] [address] 08/08/2024 1:00 PM CDT Telemedicine Specialty Center [address] [place] [address]. [place], [place] [phone] Khadijah Tamayo MD [address] [place], [place] [phone] Scheduled Orders Name Type Priority Associated Diagnoses Orde r Schedule Colonoscopy Screening GI Routine Polyp of colon, unspecified part of colon, unspecified type 1 Occurrences starting 12/19/2023 until 12/18/2025 documented as of this encounter Visit Diagnoses Diagnosis Polyp of colon, unspecified part of colon, unspecified type- Primary documented in this encounter Care Teams Sound Designer Relationship Specialty Start Date End Date Erna Sierra PA-C [address] [place] [address] PCP - General Physician Shift Boss 01/10/20 documented as of this encounter
--- OUTSIDE RECORDS SUMMARY | 2024-02-19 09:15 | XMS_ITS | Encounter Summary ---
Author Organization [facility] Address [address], [place] [address] Care Team Providers Care Media Strategist Name Role Phone Erna Sierra PA-C Primary Care Provider +1- [phone] Reason for Visit * Reason Comments Plan of Care Encounter Details Date Type Department Care Team (Late st Contact Info) Description 02/16/2024 Telephone [facility] [address] [place] [address] Mark Mccloud PA-C [address] [place] [address] Plan of Care Social History Tobacco Use Types Packs/Day Years [...] on file documented as of this encounter Nursing Notes * Mark Mccloud PA-C - 02/16/2024 11:29 AM CST Called and spoke with the patient regarding suspected abscess. Discussed that after further thought, I do recommend moving forward with an ultrasound of the soft tissue prior to his upcoming appointment with General surgery. Mark Mccloud PA-C CRINOLOGY PHYSICIAN documented in this encounter Plan of Treatment Upcoming Encounters Date Type Department Care Team (Late st Contact Info) Description 02/20/2024 9:30 AM ENDOCRINOLOGY PHYSICIAN Appointment [facility] [address] General Surgery [address] [place] [phone] [address] MD [address] [place] [address] 03/13/2024 1:00 PM ENDOCRINOLOGY PHYSICIAN Appointment [facility] [address] [place] [address] Erna Sierra PA-C [address] [place] [address] 03/30/2024 11:30 AM ENDOCRINOLOGY PHYSICIAN Appointment Endoscopy at [facility] at [facility] [address] [place] [address] Doe Landeros MD [address] [place] [address] 08/08/2024 1:00 PM CDT [facility] [address] [place] [address]. [place], [place] [phone] Khadijah Tamayo MD [address] [place] [phone] documented as of this encounter Visit Diagnoses Not on filedocumented in this encounter Care Teams Media Strategist Relationship Specialty Start Date End Date Erna Sierra PA-C [address] [place] [address] PCP - General Physician Sports Fitness And Wellness Director 01/10/20 documented as of this encounter
--- OUTSIDE RECORDS SUMMARY | 2024-02-19 09:15 | XMS_ITS | Encounter Summary ---
Author Organization [facility] Address [address] [address] Care Team Providers Care Teacher Home Therapy Name Role Phone Erna Sierra PA-C Primary Care Provider +1- [phone] Reason for Referral * Medication Prior Authorization - Closed Specialty Diagnoses / Procedures Referred By John t Referred To Contact Khadijah Tamayo MD [address] [place] [id number] Referral ID Status Reason Start Date Expiration Date Visits Re quested Visits Authorized [id number] Closed 1 1 CONTROL PILOT Encounter Details Date Type Department Care Team (Latest Contact Info) Description 02/09/2024 1:30 PM PEST CONTROL PILOT Tele[facility]icine Specialty [facility] [address] [place] [address]. 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) (Primary Dx); Morbid obesity (HRC); Low testosterone; Fatty liver (HRC); Prediabetes; Obesity, Class III, BMI 40-49.9 (morbid obesity) (HRC) Social History Tobacco Use Types Packs/Day Years [...] Sign Reading Time Taken Comments Blood Pressure - - Pulse - - Temperature - - Respiratory Rate - - Oxygen Saturation - - Inhaled Oxygen Concentration - - Weight 151.5 kg (334 lb) 02/09/2024 1:34 PM PEST CONTROL PILOT Height - - Body Mass Index 43.77 02/09/2024 8:41 AM PEST CONTROL PILOT documented in this encounter Patient Instructions * Patient Instructions* Khadijah Tamayo MD - 02/09/2024 1:30 PM PEST CONTROL PILOT Plan: - continue clomid 25 mg daily - check testosterone, PSA, Hct in 08/2024 - Continue Zepbound 15 mg weekly. - Continue topiramate 100 mg daily - Add weight training exercise 3-4 days/week Thank you for choosing the Endocrinology Clinic at [facility]. Treating physician: Khadijah Tamayo MD Need to reach us after your appointment? For non-urgent needs, consider using Online Patient Services to send a secured email to your care team. For quick questions related to your visit, there is nocharge and no waiting on hold. For more complex questions that requires your provider more than 5 minutes to address (and more than 7 days from your visit), an ???E-visit?? will be initiated. E-visits are typically covered by insurance; cost varies depending on the time the provider needs to determine the treatment right for you. - 5-10 minutes: $42 - 11-20 minutes: $81 - >= 21 minutes: $120 For quick and convenient communication, log-on to [facility], click on the Messages tab on the top, then click Contact your care team (Send a message) and follow the prompts, and we will respond within 1-2 business days. If needed call our office with any questions at [phone] For clinic and lab appointments call: [phone] or schedule on-line [email or web address] Care Line (after 5 PM, weekends and holidays): [phone] TEST RESULTS: We will communicate your test results using your preferred method, which we asked youabout during your visit. Depending on the circumstances, we may also call you to further discuss the results. It may take up to 2 weeks for some tests to be completed (send out tests). If you don't receive any information about your test within the expected time frame discussed during your visit with us, please call one of our nurses (see the phone numbers mentioned above). CANCELLATION OF APPOINTMENTS: If you are not able to keep your appointment, please call and cancel your appointment at least 48 hour prior to your scheduled appointment, or as soon as you can. This will help us schedule other patients who are waiting for an appointment. MEDICATION REFILLS: Please contact your pharmacy for refills. Your pharmacy will then contact our clinic if needed. However, please call our clinic if there is any problem. MEDICATIONS NEEDING PRIOR AUTHORIZATION: Today your clinician may have ordered a medication that may or may not need a prior authorization in order to be filled. The prescription has been sent to ourprior authorization team, who will verify with your insurance carrier if a prior authorization is required. If a prior authorization is required, expect to hear from the pharmacy regarding status and next steps within 5-7 business days. If you have not heard about the status of your medication within 5-7 business days, please call our clinic. CONTROL PILOT documented in this encounter Progress Notes * Khadijah Tamayo MD - 02/09/2024 1:30 PM CST Endocrine Return Patient Note Reason for visit: low testosterone HPI: Koffi Berger is a 33 y.o. old male seen in follow up. Patient has h/o morbid obesity, OCA on CPAP, HTN, anxiety/depression. He presented low energy, low libido and ED. Infertility for 2 years. Semen analysis was normal in Fall 2020. Labs checked in 05/2021 and 07/2021 showed low testosterone 118, 120. low LH, FSH.He went to bed at 8PM, using CPAP regularly. Has gained 100 lbs in 2 years - since started the new job and the pandemic as well, decreased activity. 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 Has h/o TBI and concussion when he was in high school. MRI brain in 08/2021 showed no pituitary lesion. Denies h/o testicular injury or infection Denies h/o chronic opioids use Denies h/o anabolic steroids use Denies h/o blood clot. Denies family h/o prostate cancer Strong family h/o thyroid disease. Due to infertility desire, clomid started in 08/2021 and work on weight loss with topiramate. Symptoms improves and able to conceive as well. Ozempic is not covered by insurance. Saxenda is approved but back ordered. Phentermine 10/2022-12/2022 Zepbound 02/2023-current 09/2022 BW 440 lb, BMI 56.3 11/2022 BW 437 lb 04/2023 BW 388 lb, BMI 49.82 09/21/2023 BW 358 lb, BMI 47.23 02/09/2024 BW 334 lb, BMI 43.77 This visit Feeling well. Lost some weight, but has gained some weight. Tolerating 15 mg Zepbound well. Energy is good as well as libido. Used to lift weigth with high school. Still taking topiramate, he thinks it continues to work. Endocrine meds: - clomid 25 mg daily - topiramate 100 mg daily - Zepbound 03/2023 - currently 15 mg weeky Review of Systems: Please see HPI as well. A 10 pt ROS was completed and negative other than positive for above. Past Medical History reviewed and updated in chart Family History reviewed and updated in chart Social History reviewed and updated in chart Labs: reviewed with patient Component Latest Ref Rng 04/12/2023 HGB A1C <=5.6 % 5.2 Component Latest Ref Rng 07/21/2023 Sex Horm Bind Glob 13 - 74 nmol/L 42 Testosterone 200 - 745 ng/dL 464 Testosterone,Free 3.1 - 12.8 ng/dL 8.3 Testosterone, Bioav 71.7 - 300.0 ng/dL 194.5 HCT 38.8 - 50.0 % 43.5 Prostatic Spec Ag 0.0 - 4.0 ng/mL 0.5 MRI brain 08/2021 Ultimately homogeneous enhancement of the pituitary. No definite pituitary mass or foci of differential enhancement identified. Midline pituitary stalk. Unremarkable suprasellar structures and cavernous sinus regions on these images. No findings to suggest pituitary adenoma. Assessment and Plan: #Low testosterone #Hypogonadotrophic hypogonadism Presented with fatigue, low libido and ED. Labs checked in 05/2021 at 1 PM which showed low testosterone 118. 8AM free testosterone was also low as well as LH, FSH, so compatible with hypogonadotrophic hypogonadism which he has risks due to h/o morbid obesity (BMI 59.5), h/o MARTIR. MRI brain no pituitary lesion. Clomid started in 08/2021 with good result, improvement of ED, energy and able to conceive. Testosterone level improved since 12/2021, most recent 01/2024. Will continue clomid since he has benefit from it and work on weight loss to restore his sex hormone again. - continue clomid 25 mg daily - check testosterone, PSA, Hct in 08/2024 #Severe obesity C/b HTN, MARTIR, and possible contributes to low testosterone. Discussed with the patient about weight loss strategy with negative energy balance, decrease energyintake and increase energy output. Diet control is 80% of weight loss, physical activity is 20%. Weight loss medications help suppressing the appetite, so will help limiting food intake to meet the goal. Ozempic is not covered by insurance. So started topiramate. Appetite lower, 14 lb weight loss whichis ok but slow.Saxenda approved, but back ordered. Phentermine 15 mg started in 10/2022-12/2022. Zepbound approved and started in 02/2023 with excellent response. - Continue Zepbound 15 mg weekly. - Continue topiramate 100 mg daily - Add weight training exercise 3-4 days/week #Prediabetes - resolved A1c 5.7% 09/2022. LDL 130 which is still acceptable. A1c normalized 5.2% in 04/2023. - Work on weight loss as above. - check a1c and ldl in yearly #Elevated liver enzymes -- resolved #Fatty liver - Continue weight loss as above. Follow up in 6 months This visit was conducted via video. Location of clinician clinic Location of patient home. Billing based on: Complexity Khadijah Tamayo MD Endocrinology staff CONTROL PILOT documented in this encounter Nursing Notes * Katja Mace LPN - 02/09/2024 1:30 PM CST The prior authorization for tirzepatide-weight management (ZEPBOUND) 15 MG/0.5ML pen injection Prior Authorization not required for patient/medication : Pharmacy has been notified. Katja Mace LPN CONTROL PILOT documented in this encounter Plan of Treatment Upcoming Encounters Date Type Department Care Team (Late st Contact Info) Description 02/20/2024 9:30 AM PEST CONTROL PILOT Appointment [facility] [address] General Surgery [address] [place] [phone] MD 14[address] [place] [address] 03/13/2024 1:00 PM PEST CONTROL PILOT [place]ment [facility] [address] [place] [address] Erna Sierra PA-C [address] [place] [address] 03/30/2024 11:30 AM PEST CONTROL PILOT Appointment Endoscopy at [facility] [address] [facility]. [place], [place] [phone] Doe Landeros MD [address] [place] [address] 08/08/2024 1:00 PM CDT Telemedicine Specialty Center [address] [place] [address]. [place], [place] [phone] Khadijah Tamayo MD [address] [place] [address] documented as of this encounter Visit Diagnoses Diagnosis Hypogonadotropic hypogonadism syndrome, male (HRC)- Primary Other testicular hypofunction Morbid obesity (HRC) Morbid obesity Low testosterone Other testicular hypofunction Fatty liver (HRC) Other chronic nonalcoholic liver disease Prediabetes Other abnormal glucose Obesity, Class III, BMI 40-49.9 (morbid obesity) (HRC) Morbid obesity documented in this encounter Care Teams Teacher Home Therapy Relationship Specialty Start Date End Date Erna Sierra PA-C [address] [place] [address] PCP - General Physician Button Grader 01/10/20 documented as of this encounter
--- OUTSIDE RECORDS SUMMARY | 2024-02-19 09:15 | XMS_ITS | Encounter Summary ---
Author Organization [facility] Address [address] [place] [address] Care Team Providers Care Manager Loan Name Role Phone Erna Sierra PA-C Primary Care Provider +1- [phone] Reason for Visit * Reason Comments RASH Groin, back of legs, and lower abdomen Encounter Details Date Type Department Care Team (Late st Contact Info) Description 02/09/2024 9:00 AM PROCUREMENT ASSISTANT Office Visit [facility] [address] [place], [place] [phone] Rosalba Holman, PALEOLOGIST, WEBSPHERE PROCESS SERVER DEVELOPER [address] [place], [place] [phone] Screening for colon cancer (Primary Dx); Essential hypertension (HRC); Obesity, Class III, BMI 40-49.9 (morbid obesity) (HRC); Need for vaccination; Intertrigo; Tinea corporis Social History Tobacco Use Types Packs/Day Years [...] Sign Reading Time Taken Comments Blood Pressure 127/83 02/09/2024 8:41 AM PROCUREMENT ASSISTANT Pulse 54 02/09/2024 8:41 AM PROCUREMENT ASSISTANT Temperature - - Respiratory Rate - - Oxygen Saturation - - Inhaled Oxygen Concentration - - Weight 155.9 kg (343 lb 9.6 oz) 02/09/2024 8:41 AM PROCUREMENT ASSISTANT Height 186.1 cm (6' 1.25) 02/09/2024 8:41 AM CS T Body Mass Index 45.02 02/09/2024 8:41 AM PROCUREMENT ASSISTANT documented in this encounter Patient Instructions * Patient Instructions* Rosalba Holman APRN, CNP - 02/09/2024 9:00 AM PROCUREMENT ASSISTANT Koffi Berger, It was so nice to see you today. Flu shot today Start diflucan 200 mg weekly x 4 weeks Start ketoconazole 2% cream daily to your groin, abdomen, and buttock region. You can use the powder (Nystatin) topically twice daily as needed to groin fold. If you have any questions, please call [phone]. Take Care, Rosalba Holman APRN, [facility] UREMENT ASSISTANT documented in this encounter Progress Notes * Rosalba Holman APRN, CNP - 02/09/2024 9:00 AM CST INTERNAL MEDICINE- OFFICE VISIT DATE: 02/09/2024 Chief Complaint Patient presents with RASH Groin, back of legs, and lower abdomen SUBJECTIVE: KOFFI BERGER is a 33 y.o. male who presents to the clinic for rash. He has a past medical historyof HTN, Bilateral PE's, fatty liver disease, GERD, prediabetes, and morbid obesity. He has been on Zepbound and his weight has gone from 439 lbs to 343 lbs over the last year. He's had a rash to his lower abdomen and panus fold for the past year that intermittently comes andgoes every couple of months. The rash has now spread to his bilateral groin fold and posterior thighs/buttock region. Rash is pruritic and has been irritating. He hasn't tried anything topically recently. He's tried dial hand soap which improved his symptoms initially but then the rash became more itchy. He has occasional burning/stinging to his panus fold and behind his legs when he goes from sitting to standing. I have personally reviewed the patient's allergies, medications, past medical history, problem list, lab results, and health maintenance record in detail and updated the patient record as necessary. ROS: Detailed 12 point ROS was performed and was positive only for the symptoms mentioned above. OBJECTIVE: BP 127/83 (BP Location: Left Arm, BP Cuff Size: Thigh/XLarge) Pulse (!) 54 Ht 1.861 m (6' 1.25) Wt (!) 155.9 kg (343 lb 9.6 oz) BMI 45.02 kg/m?? General: Well-developed, well-nourished. Awake, alert and cooperative, NAD Cardiovascular: Regular rate and rhythm. Normal S1 and S2. No murmurs, rubs or gallops. Pulmonary: Normal respiratory effort. Clear to auscultation bilaterally. No adventitious sounds appreciated. Skin: he has a hyperpigmented rash with small fissures noted to his panus fold. Hyperpigmented rashto inner groin fold and posterior thighs/buttock region with scale present. Abdomen has erythematous scaly rash and some excoriation present. See media tab Neurologic: Speech clear, gait stable. Psychiatric: Alert and oriented to person, place, and time. Mood and affect appropriate. Good judgment and insight. DATA REVIEW: Recent LFTs normalized ASSESSMENT/PLAN: Koffi was seen today for rash. Diagnoses and all orders for this visit: Screening for colon cancer - Colonoscopy as scheduled 03/30 Essential hypertension (HRC) - Well controlled on maxzide Obesity, Class III, BMI 40-49.9 (morbid obesity) (HRC) - Continues on Zepbound 15 mg weekly Need for vaccination - Influenza ccIIV3 6 months+ (FLUCELVAX) Tinea corporis Intertrigo - fluconazole (DIFLUCAN) 200 MG tablet; Take 1 Tablet (200 mg) by mouth once a week. For 4 weeks - nystatin (MYCOSTATIN) 753062 UNIT/GM powder; Apply topically two times a day. - ketoconazole (NIZORAL) 2 % cream; Apply topically daily. Indications: Ringworm of Groin Area, Ringworm of the Body He has an intertriginous rash to his panus fold and tinea infection to his groin/buttock region. Recent LFTs normalized. Recommend fluconazole 200 mg weekly x 4. Can use topical ketoconazole to rash daily and if needed use nystatin for groin region bid. I reviewed with him that nystatin will only work on devon yeast. Recommend he continue to wash skin with gentle soap, pat dry, and wear breathable clothes to prevent excessive moisture and friction to the areas with rash. Follow up with PCP as scheduled for physical. Rosalba Holman APRN, CNP Internal Medicine, [facility] This note created using speech-recognition software and may contain unintended word substitutions. UREMENT ASSISTANT documented in this encounter Plan of Treatment Upcoming Encounters Date Type Department Care Team (Late st Contact Info) Description 02/20/2024 9:30 AM PROCUREMENT ASSISTANT Appointment [facility] [address] General Surgery [address] [place] [phone] MD 1415 [place] [address] 03/13/2024 1:00 PM PROCUREMENT ASSISTANT Appointment [facility] [address] [place] [address] Erna Sierra PA-C [address]25 [place] [address] 03/30/2024 11:30 AM PROCUREMENT ASSISTANT Appointment Endoscopy at [facility] at [facility] [address] [facility] 6500 [place] [address] Doe Landeros MD [address] [place], [place] [phone] 08/08/2024 1:00 PM CDT Telemedicine Specialty Center 401 Endocrinology Clinic 401 [facility]. [place], [place] [phone] Khadijah Tamayo MD [address] [place] [address] documented as of this encounter Visit Diagnoses Diagnosis Screening for colon cancer- Primary Special screening for malignant neoplasms, colon Essential hypertension (HRC) Unspecified essential hypertension Obesity, Class III, BMI 40-49.9 (morbid obesity) (HRC) Morbid obesity Need for vaccination Need for prophylactic vaccination and inoculation against unspecified single disease Intertrigo Other specified erythematous condition Tinea corporis Dermatophytosis of the body documented in this encounter Care Teams Manager Loan Relationship Specialty Start Date End Date Erna Sierra PA-C [address] [place] [address] PCP - General Physician Architect Marine 01/10/20 documented as of this encounter
--- OUTSIDE RECORDS SUMMARY | 2024-02-19 09:15 | XMS_ITS | Encounter Summary ---
Author Organization [facility] Address [address], [place] [address] Care Team Providers Care Front Desk Manager Name Role Phone Erna Sierra PA-C Primary Care Provider +1- [phone] Encounter Details Date Type Department Care Team (Latest Contact Info) Description 09/02/2017 Correspondence [facility] [address] [place] [address] Ngozi Contreras MD [facility] [place] [address] MEDICAL EXAMINATION REPORT FORM Social History Tobacco Use Types Packs/Day Years Used Date Smoking Tobacco: Former Smokeless Tobacco: Former Chew Comments:Smoking History Pac ks/day: Alcohol Use Standard Drinks/Week Comments Yes 2 (1 standard drink = 0.6 oz pur e alcohol) not frequent Sex and Gender Information Value Date Recorded Sex Assigned at Not on file Gender Identity Not on file Sexual Orientation Not on file documented as of this encounter Plan of Treatment Upcoming Encounters Date Type Department Care Team (Late st Contact Info) Description 02/20/2024 9:30 AM SAW GRINDER Appointment [facility] [place] [address] General Surgery [address] [place] [address] MD 1415 [place] [address] 03/13/2024 1:00 PM SAW GRINDER [facility] [address] [place] [address] Erna Sierra PA-C [address] [place] [address] 03/30/2024 11:30 AM SAW GRINDER Appointment Endoscopy at [facility] at [place] [address] [facility] [address] [place] [address]. [place] [address] [place] [address] [place] [address] 08/08/2024 1:00 PM CDT Telemedicine Specialty Center 401 Endocrinology Clinic 401 [facility]. [place], [place] [phone] Khadijah Tamayo MD [address] [place], [place] [phone] documented as of this encounter Visit Diagnoses Not on filedocumented in this encounter Additional Health Concerns Infection Onset Date Last Indicated Resolved Time R/O COVID19 11/26/2019 11/26/2019 11/27/2019 6:46 AM CDT R/O COVID19 02/19/2021 02/19/2021 02/20/2021 2:03 AM SAW GRINDER R/O COVID19 04/21/2021 04/21/2021 04/21/2021 8:52 PM CDT R/O COVID19 04/23/2021 04/23/2021 04/23/2021 6:52 PM CDT R/O COVID19 04/27/2021 04/27/2021 04/27/2021 6:03 PM CDT R/O COVID19 06/08/2021 06/08/2021 06/09/2021 12:3 5 AM CDT R/O COVID19 06/23/2021 06/23/2021 06/23/2021 8:31 PM CDT COVID19 06/23/2021 06/23/2021 07/04/2021 3:17 AM CDT R/O COVID19 03/01/2022 03/01/2022 03/01/2022 4:19 PM SAW GRINDER documented as of this encounter Care Teams Front Desk Manager Relationship Specialty Start Date End Date Erna Sierra PA-C [address] [place] [address] PCP - General Physician Abrading Machine Tender 01/10/20 documented as of this encounter
--- OUTSIDE RECORDS SUMMARY | 2024-02-19 09:15 | XMS_ITS | Clinical Summary ---
Author Organization [facility] Address [address] [place] [address] Care Team Providers Care Body Mechanic Apprentice Name Role Phone Erna Sierra PA-C Primary Care Provider [phone] Source Comments You are receiving this document as you are listed as the primary care provider,follow-up provider, or the patient has been referred to you for consultation.This is in compliance with the Medicare and[facility] EHR Incentive Program,which states Providers who transition their patient to another setting of careor provider of care or refers their patient to another provider of care shouldprovide summary care record for each transition of care or referral. [facility] Allerg[facility] Active Allergy Reactions Criticality Noted Date Comments [place] Oil Gastrointestinal High 06/06/2018 Lisinopril Other, see comments Low 02/02/2018 Abdominal pain Sertraline Other, see comments 04/19/2013 PN: insomnia Insomnia PN: insomnia Medications Medication Sig Dispensed Refills Start Date End Date Status Dicyclomine HCl (BENTYL OR) Take 1 Tab by mouth as needed. Active econazole nitrate (SPECTAZOLE) 1 % creamIndications :Tinea Pedis Apply to affected area daily Indications: Athlete's Foot 30 g 5 08/16/19 20 Active Additional Information Patient not taking.Reported on 08/25/2023 hyoscyamine (LEVSIN/SL) 0.125 MG sublingual tabletIndication s:Lower abdominal pain,Nocturnal diarrhea Take 1-2 Tablets by mouth every 4 hours as needed. 40 Tablet 3 01/28/20 20 Active acetaminophen (TYLENOL) 325 MG tablet Take 2 Tablets (650 mg) by mouth every 6 hours as needed for Pain. Active multivitamin (THERAGRAN) tablet Take 1 Tablet by mouth daily. Active miconazole (DESENEX) 2 % powder Apply topically twice daily to underside of abdomen 45 g 3 11/23/19 Active Additional Information Patient not taking.Reported on 02/09/2024 ondansetron (ZOFRAN) 4 MG tabletIndication s:Nausea Take 1 Tablet (4 mg) by mouth every 8 hours as needed. 30 Tablet 1 11/23/19 Active insulin pen needle (BD ULTRAFINE ANTONIO 2ND GEN) 32G X 4 MMIndications:Mo rbid obesity (HRC) Use to inject Saxenda as instructed. 100 Each 3 12/14/19 Active Additional Information Patient not taking.Reported on 02/16/2024 LAGEVRIO 200 MG capsule Take by mouth. 01/28/20 23 Active omeprazole (PRILOSEC) 40 MG capsule TAKE ONE CAPSULE BY MOUTH EVERY DAY 90 Capsule 3 03/09/19 24 Active rivaroxaban (XARELTO) 20 MG tablet Take 1 Tablet (20 mg) by mouth daily. 03/07/19 24 Active escitalopram (LEXAPRO) 10 MG tabletIndication s:Anxiety (HRC) TAKE ONE TABLET BY MOUTH EVERY DAY 90 Tablet 2 05/30/19 24 Active sildenafil (REVATIO) 20 MG tabletIndication s:Erectile dysfunction, unspecified erectile dysfunction type Take 1 Tablet (20 mg) by mouth every 24 hours as needed. 30 Tablet 08/02/19 24 Active triamterene-hydr ochlorothiazide (MAXZIDE-25) 37.5-25 MG tabletIndication s:Essential hypertension (HRC) take one tablet by mouth every day 90 Tablet 2 10/11/19 24 Active metoprolol tartrate (LOPRESSOR) 50 MG tabletIndication s:Essential hypertension (HRC) take one tablet by mouth twice a day 180 Tablet 3 10/11/19 24 Active busPIRone (BUSPAR) 5 MG tabletIndication s:Anxiety (HRC) take one tablet by mouth twice a day 180 Tablet 3 10/11/19 24 Active fluconazole (DIFLUCAN) 200 MG tabletIndication s:Intertrigo,Tin ea corporis Take 1 Tablet (200 mg) by mouth once a week. For 4 weeks 4 Tablet 1 02/08/19 25 Active nystatin (MYCOSTATIN) 374190 UNIT/GM powderIndication s:Intertrigo Apply topically two times a day. 60 g 1 02/08/19 25 Active ketoconazole (NIZORAL) 2 % creamIndications :Tinea Corporis,Tinea Cruris Apply topically daily. Indications: Ringworm of Groin Area, Ringworm of the Body 60 g 1 02/08/19 25 Active tirzepatide-weig ht management (ZEPBOUND) 15 MG/0.5ML pen injection Inject 0.5 mL (15 mg) subcutaneously once every week. 6 mL 3 02/08/19 25 026 Active topiramate (TOPAMAX) 100 MG tabletIndication s:Morbid obesity (HRC) Take 1 Tablet (100 mg) by mouth daily. 90 Tablet 3 02/08/19 25 Active clomiPHENE (CLOMID) 50 MG tabletIndication s:Low testosterone Take 0.5 Tablets (25 mg) by mouth daily. 45 Tablet 3 02/08/19 25 Active doxycycline monohydrate (MONODOX) 100 MG capsuleIndicatio ns:Cutaneous abscess of right lower extremity Take 1 Capsule (100 mg) by mouth two times a day for 7 days. 14 Capsule 02/15/19 25 025 Active clindamycin (CLEOCIN T) 1 % lotion Apply to rash area at bedtime. 60 mL 11 11/13/19 20 025 Discontinued(*R esolved Condition) clomiPHENE (CLOMID) 50 MG tabletIndication s:Low testosterone TAKE 1/2 TABLET BY MOUTH ONCE A DAY 45 Tablet 1 09/06/19 24 025 Discontinued(*M ed change OR same med OR reorder, new dose/directions ) tirzepatide-weig ht management (ZEPBOUND) 12.5 MG/0.5ML pen injection Inject 0.5 mL (12.5 mg) subcutaneously once every week. 2 mL 09/21/19 24 025 Discontinued tirzepatide-weig ht management (ZEPBOUND) 15 MG/0.5ML pen injection Inject 0.5 mL (15 mg) subcutaneously once every week. Do not start before October 19, 2023. 2 mL 11 10/19/19 24 025 Discontinued(*M ed change OR same med OR reorder, new dose/directions ) topiramate (TOPAMAX) 100 MG tabletIndication s:Morbid obesity (HRC) TAKE ONE TABLET BY MOUTH EVERY DAY 90 Tablet 1 01/09/20 24 025 Discontinued(*M ed change OR same med OR reorder, new dose/directions ) Active Problems Patient Care Coordination No te Formatting of this note migh t be different from the original. HP CCA Care Management HP Disease and Case Management: Koffi Jp Berger identified due to pre-diabetes. Working with patient for education,resources,and any other health goals. My role is to be available to provide in-between visit support, reinforcement of the plan of care, additional education and resources, and assistance navigating health plan benefits. Briana Roca RN 06/30/2023, 4:28 PM Problem Noted Date Diagnosed Date Bilateral pulmonary embolism 08/17/2022 Hypogonadotropic hypogonadism syndrome, male Prediabetes 01/01/2022 Other specified depressive episodes 03/10/2018 Obesity, Class III, BMI 40-49.9 (morbid obesity) 02/18/2018 Fatty liver 01/09/2018 Leukocytosis 01/01/2018 Overview (08/23/2018): Peripheral smear completed 12/28/17, with no evidence of myelodysplasia. Periodic recheck of CBC with differential recommended. If white blood cell count increases, repeat peripheral smear. Fluctuating mild elevation noted going back to 2016. Continue to monitor CBC every 6 months. Irritable bowel syndrome wit h both constipation and diarrhea 12/21/2017 Essential hypertension 12/21/2017 Obstructive sleep apnea on CPAP 03/07/2017 Overview (01/24/2019): Setting: APAP 5-15 Supplied by: [facility] PSG done: 03/25/15 HST AHI 12 (eds) RDI - Lowest O2 Sat: 83% Jarrett/Neurock 08/22/18 renew; New/nasal 03-04-17 Pulmonary nodule, left 03/04/2015 Gastroesophageal reflux disease without esophagi tis 01/07/2015 Chronic nausea 01/07/2015 Anxiety 04/05/2013 Allergic rhinitis 08/26/2005 Thoracic aortic ectasia Unilateral primary osteoarthritis, left knee Resolved Problems Problem Noted Date Diagnosed Date Resolved Date Sore throat 05/07/2015 11/05/2015 Encounters Date Type Department Care Team Description 02/17/2024 1:45 PM [employer]BER Ancillary Procedure [facility] [address] [place] [address] Mark Jordan PA-C Cutaneous abscess of right lower extremity 02/16/2024 1:10 PM [employer]BER E-Visit [facility] [address] General Surgery [address] [place] [address] MD Chief Comp: Pre-visit Planning 02/16/2024 11:00 AM [employer]BER Office Visit [facility] [address] [place] [address] Mark Jordan PA-C Cutaneous abscess of right lower extremity (Primary Dx) 02/16/2024 Telephone [facility] [address] [place] [address] Mark Jordan PA-C Plan of Care 02/09/2024 1:30 PM [employer]BER Telemedicine [facility] [address] [facility] [address] [place] [address] Khadijah Tamayo MD Hypogonadotropic hypogonadism syndrome, male (HRC) (Primary Dx); Morbid obesity (HRC); Low testosterone; Fatty liver (HRC); Prediabetes; Obesity, Class III, BMI 40-49.9 (morbid obesity) (HRC) 02/09/2024 9:00 AM [employer] Office Visit [facility] [address] [place] [address] Rosalba Holman, SHOTWELD OPERATOR, CHAIN REPAIRER Screening for colon cancer (Primary Dx); Essential hypertension (HRC); Obesity, Class III, BMI 40-49.9 (morbid obesity) (HRC); Need for vaccination; Intertrigo; Tinea corporis 02/03/2024 9:40 AM [employer] MEMBER Lab Visit Laboratory at [facility] [address] [place] [phone] Low testosterone; Hypogonadotropic hypogonadism syndrome, male (HRC) 01/06/2024 Refill [facility] [address] [place] [address]. [place] [address] Khadijah Tamayo MD Refill (topiramate (TOPAMAX) 100 MG tablet [Pharmacy Med Name: TOPIRAMATE 100MG TABS]) 12/30/2023 1:40 PM [employer] Telemedicine [facility] [place] [address] [address] [address] [place] [address] Jenna Simpson APRN, CHAIN REPAIRER Irritable bowel syndrome with both constipation and diarrhea (Primary Dx); Gastroesophageal reflux disease without esophagitis 12/19/2023 9:35 AM [employer]BER E-Visit [facility] at [facility] [address] [address] [address] [place] [address] Jenna Simpson, LISA, CHAIN REPAIRER Chief Comp: QUESTIONS, GENERAL 12/19/2023 Notes/Orders Endoscopy at [facility] at [facility] [address] [facility] [address] [place] [address]. [place] [address] Doe Landeros MD Polyp of colon, unspecified part of colon, unspecified type (Primary Dx) from Last 3 Months Immunizations Name Administration Dates Next Due Flu Vac (3+ yrs) 11/12/2013,10/30/2008 Flu Vac Preserv Free (3+yrs) 11/04/2016,10/27/19 16,12/07/2011 Fluvirin Vaccine 11/12/2013 Influenza (Flucelvax), Prese rv Free QIV 11/06/2022,11/09/2021,12/14/2020 Influenza IIV4 (Quadrivalent ) 0.5mL (17574) 12/07/2019,11/10/2018,11/02/2017 Influenza ccIIV3 6 months+ (Flucelvax) 02/09/2024 Influenza, Unspecified Formulation 11/26/2014 Moderna Bivalent 12+ 11/09/2021 Pfizer Monovalent 12+ Purple Top 12/14/2020,02/08,02/07/2020 TB Skin Test (PPD) 08/02/2014, 4,07/13/2013,2012,03/22/2012,03/15/2012 Tdap 08/02/2014 Varicella 10/12/2018,05/01/2012 Family History Medical History Relation Name Comments Hypertension Father Father Obesity Father Father Diabetes Maternal Grandmother Grandma Diabetes Paternal Grandmother Grandma Amblyopia/Strabismus Negative Family History Cataract Negative Family History Glaucoma Negative Family History Macular Degeneration Negative Family History Retinal Detachment Negative Family History Relation Name Status Comments Father Father Alive Mother Alive Maternal Grandmother Grandma Paternal Grandmother Grandma Sister Alive Social History Tobacco Use Types Packs/Day Years Used Date Smoking Tobacco: Former Cigarettes 0.5 5 0 2010 - 06/11/2014 Passive Smoke Exposure: Never Smokeless Tobacco: Former Chew Quit: 02/07/2014 Tobacco Cessation:Counseling Given: Not Answered Alcohol Use Standard Drinks/Week Comments Yes 0 [...] Comments Blood Pressure 128/86 02/16/2024 10:56 AM [employer] Pulse 75 02/16/2024 10:56 AM [employer] MEMBER Temperature 36.9 C (98.4 F) 02/16/2024 10:56 AM [employer]BER Respiratory Rate 18 03/01/2022 8:36 AM [employer]BER Oxygen Saturation 99% 03/01/2022 8:36 AM [employer]BER Inhaled Oxygen Concentration - - Weight 151.5 kg (334 lb) 02/09/2024 1:34 PM [employer] Height 186.1 cm (6' 1.25) 02/09/2024 8:41 AM CS T Body Mass Index 43.77 02/09/2024 8:41 AM [employer]BER Plan of Treatment Upcoming Encounters Date Type Department Care Team (Late st Contact Info) Description 02/20/2024 9:30 AM [employer] MEMBER Appointment [facility] [address] General Surgery [address] [place] [phone] MD [address] [facility] [place] [address] 03/13/2024 1:00 PM [employer] Appointment [facility] [address] [place] [address] Erna Sierra PA-C [address] [place] [address] 03/30/2024 11:30 AM [employer] MEMBER Appointment Endoscopy at [facility] at [address] [place] [address] Doe Landeros MD [address] [place], [place] [phone] 08/08/2024 1:00 PM CDT Telemedicine Specialty [facility] 401 [facility] [place], [place] [id number] Khadijah Tamayo MD [address] [place], [place] [phone] Health Maintenance Due Date Last Done Comments HepB (1) 2009 Colonoscopy 04/27/2021 04/27/2016 Adult Preventive Visit 06/03/2022 06/03/2020, 2017 COVID-19 Vaccine ( season) 2023 11/09/2021, 12/14/2020, 02/28/2020, Additional history exists Prediabetes: HGBA1C 04/11/2024 04/12/2023, 09/10/2022, 12/18/2021 DTaP/Tdap/Td (3 - Tdap) 08/02/2024 08/03/19 15, 09/24/2013 (Completed) Zoster/Shingles (1 of 2) 2040 HIV Screening (Preventive Services) Completed 12/21/2017 Hep C Screening (Preventive Services) Completed 04/15/2023 Influenza Completed 02/09/2024, 10/10, 11/09/2021, Additional history exists HPV Vaccine Aged Out No longer eligi ble based on patient's age to complete this topic HepA Aged Out No longer eligi ble based on patient's age to complete this topic Hib Aged Out No longer eligi ble based on patient's age to complete this topic IPV (Polio) Aged Out No longer eligi ble based on patient's age to complete this topic MCV4 Aged Out No longer eligi ble based on patient's age to complete this topic Pneumococcal Aged Out No longer eligi ble based on patient's age to complete this topic Procedures Procedure Name Priority Date/Time Associated Diagnosis Comments US LOWER EXTREMITY RT SOFT TISSUE Same Day 02/17/2024 2:00 PM [employer] Cutaneous abscess of right lower extremity HEMATOCRIT, BLOOD Routine 02/03/2024 9:4 2 AM [employer]BER Low testosterone Hypogonadotropic hypogonadism syndrome, male (HRC) TESTOSTERONE,TOTA L,FREE & BIOAVAILABLE, MALES Routine 02/03/2024 9:42 AM [employer]BER Low testosterone Hypogonadotropic hypogonadism syndrome, male (HRC) HEPATITIS C ANTIBODY, WITH REFLEX Routine 04/15/2023 4:25 PM [employer] MEMBER Elevated liver enzymes HGB A1C Routine 04/12/2023 12:04 PM [employer] MEMBER Prediabetes Morbid obesity (HRC) HIV 1/2 AG/AB 4TH GEN Routine 12/21/2017 3:02 PM [employer]BER Screening for HIV (human immunodeficiency virus) ENDOSCOPY, COLON, SCREENING/DIAGNOS TIC Routine 04/27/2016 2:24 PM CDT Lower abdominal pain Nocturnal diarrhea from Last 3 Months or Most Recently Relevant to Health Maintenance Results * US Lower Extremity Rt Soft Tissue (02/17/2024 2:00 PM [employer] MEMBER) Anatomical Region Laterality Modality Lower Extremity Ultrasound 02/17/2024 1:42 PM [employer]BER Narrative 02/17/2024 2:10 PM [employer]BER Soft tissue ultrasound of the medial right [...] be compatible with abscessthe appropriate clinical setting. Mark Jordan PA-C [facility] US * Testosterone,Free,Bioavailable,Total,Adult Males or Individuals on Testosterone Hormone Therapy (Expected: 120 days) (02/03/2024 9:42 AM [employer] MEMBER) Sex Hormone Binding Globulin Adult 40 13 - 74 nmol/L 02/03/2024 3:55 PM [employer] MEMBER [facility] Testosterone 487 200 - 745 ng/dL 02/03/2024 3:55 PM [employer] MEMBER [facility] Testosterone, Free 9.0 3.1 - 12.8 ng/dL 02/03/2024 3:55 PM [employer] MEMBER [facility] Testosterone, Bioavailable 210.9 71.7 - 300.0 ng/dL 02/03/2024 3:55 PM [employer] MEMBER [facility] Blood Venipuncture / Unknown 02/03/2024 9:42 AM [employer] MEMBER 02/03/2024 9:42 AM [employer]BER Khadijah Tamayo MD LAB_1 [facility] [employer] [facility] [address] * Hematocrit, Blood (Expected: 90 days) (02/03/2024 9:42 AM [employer] MEMBER) HCT 48.9 38.8 - 50.0 % 02/03/2024 9:57 AM [employer]BER [facility] Blood Venipuncture / Unknown 02/03/2024 9:42 AM [employer] MEMBER 02/03/2024 9:42 AM [employer]BER Khadijah Tamayo MD LAB_1 [facility] [address] [place] [address], [facility] * Hepatitis C Antibody, with Reflex (04/15/2023 4:25 PM [employer] MEMBER) Hepatitis C Antibody Negative (Non Reactive) Negative (Non Reactive) 04/15/2023 9:27 PM [employer] MEMBER [facility] Comment:Antibodies to HCV no t detected. Does not exclude the possiblity of exposure to HCV. Blood Venipuncture / Unknown 04/15/2023 4:25 PM [employer] MEMBER 04/15/2023 4:25 PM [employer] MEMBER Khadijah Tamayo MD LAB_1 Performing Organization Address [facility] Co de Phone Number [facility] [address] [place], [place] [address] * HgbA1c (Expected: 120 days) (04/12/2023 12:04 PM [employer] MEMBER) Pathologist [facility] Hemoglobin A1C 5.2 <=5.6 % 04/12/2023 3:39 PM [employer]BER [facility] Estimated Average Glucose (Calc) 103 < 117 mg/dL 04/12/2023 3:39 PM [employer]BER [facility] Comment:Estimated average gl ucose (eAG) converts A1c into glucose units (mg/dL) and estimates average glucose over the past approximately 3 months. The eAG reference interval (<117 mg/dL) corresponds to an A1c of <5.7%. Blood Venipuncture / Unknown 04/12/2023 12:04 PM [employer]BER 04/12/2023 12:04 PM [employer]BER Khadijah Tamayo MD LAB_1 Performing Organization Address City/[facility]/ZIP Co de Phone Number [facility] [address] * HIV 1/2 Ag/Ab 4th Generation (12/21/2017 3:02 PM [employer]) HIV-1 p24 Ag and HIV-1/HIV-2 Ab Nonreactive Nonreactive PN SOFT 12/21/2017 3:02 PM [employer] 12/21/2017 6:32 PM [employer]BER Narrative PN SOFT - 12/21/2017 8:18 PM [employer] Performed at [address] [address] CLIA number [id number] Desmond Olivas MD LAB_1 [facility] [address] [place] [address] * Endoscopy, colon, diagnostic (04/27/2016 2:24 PM CDT) Anatomical Region Laterality Modality Other 04/27/2016 2:24 PM CDT Narrative 04/27/2016 2:24 PM CDT Patient Name: Koffi Berger Procedure Date: 04/27/2016 2:24 PM Date of : 1990 Admit Type: Outpatient Age: 25 Gender: Male Note Status: Finalized Attending MD: Thomas Carcamo MD Procedure: Colonoscopy Indications: Abdominal pain in the left lower quadrant Providers: Thomas Carcamo MD, Paris Ho RN Referring MD: Eleanor Mahan NP, Desmond Olivas MD Medicines: Midazolam 4 mg IV, Fentanyl 200 micrograms IV Complications: No immediate complications. Estimated blood loss: Minimal. Procedure: After I obtained informed consent, the scope was passed under direct vision. Throughout the procedure, the patient's blood pressure, pulse, and oxygen saturations were monitored continuously. The [id number] was introduced through the anus and advanced to the terminal ileum, with identification of the appendiceal orifice and IC valve. The colonoscopy was performed without difficulty. The patient tolerated the procedure well. The quality of the bowel preparation was good. Findings: The perianal and digital rectal examinations were normal. A 5 mm polyp was found in the ascending colon on retroflexion view. The polyp was sessile. In retroflexed position, the polyp was removed with a cold snare. Resection and retrieval were complete. The terminal ileum and ileum, 25 cm from the ileocecal valve appeared normal. The exam was otherwise without abnormality on direct and retroflexion views. Impression: - One 5 mm polyp in the ascending colon. Resected and retrieved. - The examined portion of the ileum was normal. - The examination was otherwise normal on direct and retroflexion views. - No anatomical explanation for the patient's pain. The pain is intermittent, LLQ, sharp, lasts one minute, and is relieved with defecation. Possibility is the pain is related to contraction in sigmoid pushing stool around an angle. Will recommend a trial of metamucil. Recommendation: - Await pathology results. - Use original regular Metamucil one tablespoon PO daily. - Repeat colonoscopy for surveillance in five years if polyp is an adenomatous polyy. - Return to referring physician as previously scheduled. Procedure Code(s): --- Professional --- 82553, Colonoscopy, flexible; with removal of tumor(s), polyp(s), or other lesion(s) by snare technique Diagnosis Code(s): --- Professional --- D12.2, Benign neoplasm of ascending colon R10.32, Left lower quadrant pain CPT copyright 2014 [employer]. All rights reserved. The codes documented in this report are preliminary and upon food service review may be revised to meet current compliance requirements. Thomas Carcamo MD 04/27/2016 3:11:07 PM This document has been electronically signed. Number of Addenda: 0 Note Initiated On: 04/27/2016 2:24 PM Endoscopy Report Procedure Note Thomas Carcamo MD - 04/27/2016 Patient Name: Koffi Berger Procedure Date: 04/27/2016 2:24 PM Date of : 1990 Admit Type: Outpatient Age: 25 Gender: Male Note Status: Finalized Attending MD: Thomas Carcamo MD Procedure: Colonoscopy Indications: Abdominal pain in the left lower quadrant Providers: Thomas Carcamo MD, Paris Ho RN Referring MD: Eleanor Mahan NP, Desmond Olivas MD Medicines: Midazolam 4 mg IV, Fentanyl 200 micrograms IV Complications: No immediate complications. Estimated blood loss: Minimal. Procedure: After I obtained informed consent, the scope was passed under direct vision. Throughout the procedure, the patient's blood pressure, pulse, and oxygen saturations were monitored continuously. The [id number] was introduced through the anus and advanced to the terminal ileum, with identification of the appendiceal orifice and IC valve. The colonoscopy was performed without difficulty. The patient tolerated the procedure well. The quality of the bowel preparation was good. Findings: The perianal and digital rectal examinations were normal. A 5 mm polyp was found in the ascending colon on retroflexion view. The polyp was sessile. In retroflexed position, the polyp was removed with a cold snare. Resection and retrieval were complete. The terminal ileum and ileum, 25 cm from the ileocecal valve appeared normal. The exam was otherwise without abnormality on direct and retroflexion views. Impression: - One 5 mm polyp in the ascending colon. Resected and retrieved. - The examined portion of the ileum was normal. - The examination was otherwise normal on direct and retroflexion views. - No anatomical explanation for the patient's pain. The pain is intermittent, LLQ, sharp, lasts one minute, and is relieved with defecation. Possibility is the pain is related to contraction in sigmoid pushing stool around an angle. Will recommend a trial of metamucil. Recommendation: - Await pathology results. - Use original regular Metamucil one tablespoon PO daily. - Repeat colonoscopy for surveillance in five years if polyp is an adenomatous polyy. - Return to referring physician as previously scheduled. Procedure Code(s): --- Professional --- 49379, Colonoscopy, flexible; with removal of tumor(s), polyp(s), or other lesion(s) by snare technique Diagnosis Code(s): --- Professional --- D12.2, Benign neoplasm of ascending colon R10.32, Left lower quadrant pain CPT copyright 2014 [employer]. All rights reserved. The codes documented in this report are preliminary and upon food service review may be revised to meet current compliance requirements. Thomas Carcamo MD 04/27/2016 3:11:07 PM This document has been electronically signed. Number of Addenda: 0 Note Initiated On: 04/27/2016 2:24 PM Endoscopy Report Eleanor Mahan SHOTWELD OPERATOR, CHAIN REPAIRER ET GI PROCED URE ORDERABLES from Last 3 Months or Most Recently Relevant to Health Maintenance [facility] Company Account Employer [email or web address] [address] Brimson, Koffi A MVA/TPL Self [address] [place] [address] Celine, Koffi A Workers Comp Self [address] [place] [address] Celine Koffi A MVA/TPL Self [address] [place] [address] Brimson, Koffi A Workers Comp Self [address] [place] [address] [id number] Workers Comp Employer [address] [place] [address] Chriss Bergerothy A MVA/TPL Self [address] [place] [address] Care Teams Body Mechanic Apprentice Relationship Specialty Start Date End Date Erna Sierra PA-C [address] [place] [address] PCP - General Physician Community Placement Worker 01/10/20
--- OUTSIDE RECORDS SUMMARY | 2024-02-19 09:15 | XMS_ITS | Encounter Summary ---
Author Organization [facility] Address [address] [place] [address] Care Team Providers Care Software Administrator Name Role Phone Erna Sierra PA-C Primary Care Provider +1- [phone] Reason for Visit * Reason Comments Pre-visit Planning Entered automaticall y based on patient selection in Property [place]. Encounter Details Date Type Department Care Team (Late st Contact Info) Description 02/16/2024 1:10 PM YIELD LOSS INSPECTOR E-Visit [place] [address] General Surgery [address] [place] [address] MD 1415 [place] [address] Chief Comp: Pre-visit Planning Social History Tobacco Use Types Packs/Day Years [...] st Contact Info) Description 02/20/2024 9:30 AM YIELD LOSS INSPECTOR Appointment [place] [address] General Surgery [address] [place] [address] [address] MD 1415 [facility] [place] [address] 03/13/2024 1:00 PM YIELD LOSS INSPECTOR Appointment [facility] [address] [place] [address] Erna Sierra PA-C [address] [place] [address] 03/30/2024 11:30 AM YIELD LOSS INSPECTOR Appointment Endoscopy at [facility] at [address] 6500 [facility] [place] [address] [place] [address] [place] [address] 08/08/2024 1:00 PM CDT Tele[facility]icine Specialty [facility] [address] [place] [address]. [place], [place] [phone] Khadijah Tamayo MD 401 [place], [place] [phone] documented as of this encounter Visit Diagnoses Not on filedocumented in this encounter Care Teams Software Administrator Relationship Specialty Start Date End Date Erna Sierra PA-C [address] [place] [address] PCP - General Physician Early Education Teacher 01/10/20 documented as of this encounter
--- OUTSIDE RECORDS SUMMARY | 2024-02-19 09:15 | XMS_ITS | Encounter Summary ---
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) Social History Tobacco Use Types Packs/Day [...] st Contact Info) Description 02/20/2024 9:30 AM DICE TABLE PERSON Appointment Bronwyn [place] [address] General Surgery [address] [place] [address] MD 1415 [place] [address] 03/13/2024 1:00 PM DICE TABLE PERSON Appointment [facility] [address] [place] [address] Erna Sierra PA-C [address] [place], [place] [phone] 03/30/2024 11:30 AM DICE TABLE PERSON Appointment Endoscopy at [facility] [place] 950650 [facility] 6500 [facility] [place], [place] [address] Doe Landeros MD 6500 [place] [address] 08/08/2024 1:00 PM CDT Telemedicine Specialty Center [address] [facility] [address] [place] [address]. 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) documented in this encounter Results * Hematocrit, Blood (Expected: 90 days) (02/03/2024 9:42 AM DICE TABLE PERSON) HCT 48.9 38.8 - 50.0 % 02/03/2024 9:57 AM DICE TABLE PERSON [facility] Blood Venipuncture / Unknown 02/03/2024 9:42 AM DICE TABLE PERSON 02/03/2024 9:42 AM DICE TABLE PERSON Khadijah Tamayo MD LAB_1 [facility] [address] [place] [address] * Testosterone,Free,Bioavailable,Total,Adult Males or Individuals on Testosterone Hormone Therapy (Expected: 120 days) (02/03/2024 9:42 AM DICE TABLE PERSON) Sex Hormone Binding Globulin Adult 40 13 - 74 nmol/L 02/03/2024 3:55 PM DICE TABLE PERSON [facility] Testosterone 487 200 - 745 ng/dL 02/03/2024 3:55 PM DICE TABLE PERSON [facility] Testosterone, Free 9.0 3.1 - 12.8 ng/dL 02/03/2024 3:55 PM [facility] Testosterone, Bioavailable 210.9 71.7 - 300.0 ng/dL 02/03/2024 3:55 PM [facility] Blood Venipuncture / Unknown 02/03/2024 9:42 AM DICE TABLE PERSON 02/03/2024 9:42 AM DICE TABLE PERSON Khadijah Tamayo MD LAB_1 Performing Organization Address City/[facility]/ZIP Co de Phone Number [facility] [address] documented in this encounter Visit Diagnoses Diagnosis Low testosterone Other testicular hypofunction Hypogonadotropic hypogonadism syndrome, 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
--- OUTSIDE RECORDS SUMMARY | 2024-02-19 09:15 | XMS_ITS | Encounter Summary ---
Author Organization [facility] Address [address] [address] Care Team Providers Care River Rat Name Role Phone Erna Sierra PA-C Primary Care Provider +1- [phone] Encounter Details Date Type Department Care Team (Latest Contact Info) Description 08/30/2018 Correspondence None No Primary/Referring, Phy OCC MED NOTES Social History Tobacco Use Types Packs/Day Years [...] st Contact Info) Description 02/20/2024 9:30 AM PROJECT FACILITATOR Appointment Bronwyn [place] [address] General Surgery [address] [place] [address] MD 1415 [place] [address] 03/13/2024 1:00 PM PROJECT FACILITATOR Appointment [facility] 5625 [place] [address] Erna Sierra PA-C [address] [place] [address] 03/30/2024 11:30 AM PROJECT FACILITATOR Appointment Endoscopy at [facility] at [facility] 6500 Building 6500 [facility] [place] [address] Doe Landeros MD 6500 [place] [address] 08/08/2024 1:00 PM CDT Telemedicine Specialty Center [address] [place] [address]. [place], [place] [phone] Khadijah Tamayo MD [address] [place] [phone] documented as of this encounter Visit Diagnoses Not on filedocumented in this encounter Additional Health Concerns Infection Onset Date Last Indicated Resolved Time R/O COVID19 11/26/2019 11/26/2019 11/27/2019 6:46 AM CDT R/O COVID19 02/19/2021 02/19/2021 02/20/2021 2:03 AM PROJECT FACILITATOR R/O COVID19 04/21/2021 04/21/2021 04/21/2021 8:52 PM CDT R/O COVID19 04/23/2021 04/23/2021 04/23/2021 6:52 PM CDT R/O COVID19 04/27/2021 04/27/2021 04/27/2021 6:03 PM CDT R/O COVID19 06/08/2021 06/08/2021 06/09/2021 12:3 5 AM CDT R/O COVID19 06/23/2021 06/23/2021 06/23/2021 8:31 PM CDT COVID19 06/23/2021 06/23/2021 07/04/2021 3:17 AM CDT R/O COVID19 03/01/2022 03/01/2022 03/01/2022 4:19 PM PROJECT FACILITATOR documented as of this encounter Care Teams River Rat Relationship Specialty Start Date End Date Erna Sierra PA-C [address] [place] [address] PCP - General Physician Director Bioinformatics 01/10/20 documented as of this encounter
--- OUTSIDE RECORDS SUMMARY | 2024-02-19 09:15 | XMS_ITS | Encounter Summary ---
Author Organization [facility] Address [address] [address] Care Team Providers Care Working Supervisor Name Role Phone Erna Sierra PA-C Primary Care Provider +1- [phone] Reason for Visit * Reason Comments Refill topiramate (TOPAMAX) 100 MG tablet [Pharmacy Med Name: TOPIRAMATE 100MG TABS] Encounter Details Date Type Department Care Team (Late st Contact Info) Description 01/06/2024 Refill Specialty Center [address] [place] [address]. [place] [address] Khadijah Reeder MD [address] [place] [address] Refill (topiramate (TOPAMAX) 100 MG tablet [Pharmacy Med Name: TOPIRAMATE 100MG TABS]) Social History Tobacco Use Types Packs/Day Years [...] as of this encounter Nursing Notes * Renetta Narayan RN - 01/09/2024 3:40 PM CST Medication refilled per standing order. Renetta Brennan RN 01/09/2024 3:40 PM MATIC LATHE SETTER * Juan Ramon Kaur Xrwcomm - 01/06/2024 2:08 AM CST topiramate (TOPAMAX) 100 MG tablet [Pharmacy Med Name: TOPIRAMATE 100MG TABS] Medication started: 08/24/2021 Last ordered by KHADIJAH REEDER: 01/10/2023 (361 days ago) QTY: 90, Refills: 3, Sig: take 1 tablet by mouth daily (changed but equivalent) -> Refill x 6 months, qty: 90, refills: 1 (until due for a(n) CBC check) Last qualifying visit: 09/21/2023 (in Endocrinology with KHADIJAH REEDER) Next scheduled visit: 02/09/2024 (in Endocrinology with KHADIJAH REEDER) CBC: Completed on 05/25/2023 [facility] Embedded Refills, Reference: [id number], 01/06/2024 2:08:00 AM Yahir MARTINEZ: MARLA BLAKE RN ([id number]) MATIC LATHE SETTER documented in this encounter Plan of Treatment Upcoming Encounters Date Type Department Care Team (Late st Contact Info) Description 02/20/2024 9:30 AM AUTOMATIC LATHE SETTER Appointment Bronwyn [place] [address] General Surgery 132[address] [place] [address] MD 1415 [facility] [place] [address] 03/13/2024 1:00 PM AUTOMATIC LATHE SETTER Appointment [facility] [address] [place] [address] Erna Sierra PA-C [address] [place] [address] 03/30/2024 11:30 AM AUTOMATIC LATHE SETTER Appointment Endoscopy at [facility] [place] [address] [place] [address]. [place] [address] Doe Landeros MD [address] [place] [address] 08/08/2024 1:00 PM CDT Telemedicine Specialty Center 401 [address] [place] [address]. [place], [place] [phone] Khadijah Reeder MD 401 [place] [address] documented as of this encounter Visit Diagnoses Diagnosis Morbid obesity (HRC) Morbid obesity documented in this encounter Care Teams Working Supervisor Relationship Specialty Start Date End Date Erna Sierra PA-C [address] [place] [address] PCP - General Physician Vegetable Scullion 01/10/20 documented as of this encounter
--- OUTSIDE RECORDS SUMMARY | 2024-02-19 09:15 | XMS_ITS | Encounter Summary ---
Author Organization [facility] Address [address] [address] Care Team Providers Care Studio Technician Video Operator Name Role Phone Erna Sierra PA-C Primary Care Provider +1- [phone] Reason for Visit * Procedure/Equipment (Routine) - Incomplete Specialty Diagnoses / Procedures Referred By John gould Referred To Contact Diagnoses Cutaneous abscess of right lower extremity Procedures US Lower Extremity Rt Soft Tissue Mark Jordan PA-C [address] [place] [address] Referral ID Status Reason Start Date Expiration Date V isits Requested Visits Authorized [id number] Incomplete 02/16/2024 05/17/2025 1 1 Encounter Details Date Type Department Care Team (Latest Contact Info) Description 02/17/2024 1:45 PM FIBERGLASS LUGGAGE MOLDER Ancillary Procedure [place] [facility] [address] [place] [address] Mark Jordan PA-C [address] [place] [address] Cutaneous abscess of right lower extremity Social History Tobacco Use Types Packs/Day Years [...] st Contact Info) Description 02/20/2024 9:30 AM FIBERGLASS LUGGAGE MOLDER Appointment Bronwyn [place] [address] General Surgery [address] [place] [address] [address] MD 1415 [facility] [place] [address] 03/13/2024 1:00 PM FIBERGLASS LUGGAGE MOLDER Appointment [facility] 5625 [place] [address] Erna Sierra PA-C [address] [place] [address] 03/30/2024 11:30 AM FIBERGLASS LUGGAGE MOLDER Appointment Endoscopy at [facility] [address] [place] [address]. [place] [address] Doe Landeros MD [address] [place] [address] 08/08/2024 1:00 PM CDT Telemedicine Specialty Center [address] [place] [address]. [place], [place] [phone] Khadijah Tamayo MD 401 [place], [place] [phone] documented as of this encounter Procedures Procedure Name Priority Date/Time Associated Diagnosis Comments US LOWER EXTREMITY RT SOFT TISSUE Same Day 02/17/2024 2:00 PM FIBERGLASS LUGGAGE MOLDER Cutaneous abscess of right lower extremity documented in this encounter Results * US Lower Extremity Rt Soft Tissue (02/17/2024 2:00 PM FIBERGLASS LUGGAGE MOLDER) Anatomical Region Laterality Modality Lower Extremity Ultrasound 02/17/2024 1:42 PM FIBERGLASS LUGGAGE MOLDER Narrative 02/17/2024 2:10 PM FIBERGLASS LUGGAGE MOLDER Soft tissue ultrasound of the medial right [...] abscessthe appropriate clinical setting. Mark Jordan PA-C RAD US documented in this encounter Visit Diagnoses Diagnosis Cutaneous abscess of right lower extremity Cellulitis and abscess of leg, except foot documented in this encounter Care Teams Studio Technician Video Operator Relationship Specialty Start Date End Date Erna Sierra PA-C [address] [place] [address] PCP - General Physician County Coroner 01/10/20 documented as of this encounter
--- OUTSIDE RECORDS SUMMARY | 2024-02-19 09:16 | XMS_ITS | Encounter Summary ---
Author Organization [facility] Address [address], [place] [address] Care Team Providers Care Insurance Investigator Name Role Phone Erna Sierra PA-C Primary Care Provider +1- [phone] Encounter Details Date Type Department Care Team (Late st Contact Info) Description 08/24/2016 Correspondence [facility] Occupational and Environmental Medicine [address] [place] [address] Edu Perdue PA-C [address] [place] [phone] [employer] Social History Tobacco Use Types Packs/Day Years [...] st Contact Info) Description 02/20/2024 9:30 AM GEEK SQUAD AUTOTECH Appointment Bronwny Pau[place] [address] General Surgery [address] [place] [address] MD [address] [place] [address] 03/13/2024 1:00 PM GEEK SQUAD AUTOTECH Appointment [facility] [address] [place] [address] Eran Sierra PA-C [address] [place] [address] 03/30/2024 11:30 AM GEEK SQUAD AUTOTECH Appointment Endoscopy at [facility] at [place] [address] [facility] [address] [place] [address]. [place] [address] [place] [address] [place] [address] 08/08/2024 1:00 PM CDT Telemedicine Specialty Center 401 Endocrinology Clinic 401 [facility] [place], [place] [phone] Khadijah Tamayo MD 401 [place], [place] [phone] documented as of this encounter Visit Diagnoses Not on filedocumented in this encounter Additional Health Concerns Infection Onset Date Last Indicated Resolved Time R/O COVID19 11/26/2019 11/26/2019 11/27/2019 6:46 AM CDT R/O COVID19 02/19/2021 02/19/2021 02/20/2021 2:03 AM GEEK SQUAD AUTOTECH R/O COVID19 04/21/2021 04/21/2021 04/21/2021 8:52 PM CDT R/O COVID19 04/23/2021 04/23/2021 04/23/2021 6:52 PM CDT R/O COVID19 04/27/2021 04/27/2021 04/27/2021 6:03 PM CDT R/O COVID19 06/08/2021 06/08/2021 06/09/2021 12:3 5 AM CDT R/O COVID19 06/23/2021 06/23/2021 06/23/2021 8:31 PM CDT COVID19 06/23/2021 06/23/2021 07/04/2021 3:17 AM CDT R/O COVID19 03/01/2022 03/01/2022 03/01/2022 4:19 PM GEEK SQUAD AUTOTECH documented as of this encounter Care Teams Insurance Investigator Relationship Specialty Start Date End Date Erna Sierra PA-C [address] [place] [address] PCP - General Physician Sprayer Leather 01/10/20 documented as of this encounter
--- OUTSIDE RECORDS SUMMARY | 2024-02-19 09:16 | XMS_ITS | Encounter Summary ---
Author Organization [facility] Address [address], [place] [address] Care Team Providers Care Transportation Planner Name Role Phone Erna Sierra PA-C Primary Care Provider +1- [phone] Encounter Details Date Type Department Care Team (Latest Contact Info) Description 09/02/2017 Correspondence [place] Occupational and Environmental Medicine 2220 [place] [address] Ngozi Contreras MD [facility] [place] [address] MAINTENANCE OF WAKEFULNESS TEST Social History Tobacco Use Types Packs/Day Years [...] st Contact Info) Description 02/20/2024 9:30 AM MACHINE STACKER Appointment Bronwyn Pau[place] [address] General Surgery [address] [place] [address] MD 1415 [facility] [place] [address] 03/13/2024 1:00 PM MACHINE STACKER Appointment [facility] [address] [place] [address] Erna Sierra PA-C [address] [place] [address] 03/30/2024 11:30 AM MACHINE STACKER Appointment Endoscopy at [facility] [place] [address] [facility] [address] [place] [address]. [place] [address] [place] [address] [place] [address] 08/08/2024 1:00 PM CDT Telemedicine Specialty Center 401 Endocrinology Clinic 401 [facility] [place], [place] [phone] Khadijah Tamayo MD 401 [place], [place] [phone] documented as of this encounter Visit Diagnoses Not on filedocumented in this encounter Additional Health Concerns Infection Onset Date Last Indicated Resolved Time R/O COVID19 11/26/2019 11/26/2019 11/27/2019 6:46 AM CDT R/O COVID19 02/19/2021 02/19/2021 02/20/2021 2:03 AM MACHINE STACKER R/O COVID19 04/21/2021 04/21/2021 04/21/2021 8:52 PM CDT R/O COVID19 04/23/2021 04/23/2021 04/23/2021 6:52 PM CDT R/O COVID19 04/27/2021 04/27/2021 04/27/2021 6:03 PM CDT R/O COVID19 06/08/2021 06/08/2021 06/09/2021 12:3 5 AM CDT R/O COVID19 06/23/2021 06/23/2021 06/23/2021 8:31 PM CDT COVID19 06/23/2021 06/23/2021 07/04/2021 3:17 AM CDT R/O COVID19 03/01/2022 03/01/2022 03/01/2022 4:19 PM MACHINE STACKER documented as of this encounter Care Teams Transportation Planner Relationship Specialty Start Date End Date Erna Sierra PA-C [address] [place] [address] PCP - General Physician Distribution Sales Manager 01/10/20 documented as of this encounter
--- OUTSIDE RECORDS SUMMARY | 2024-02-19 09:16 | XMS_ITS | Encounter Summary ---
Author Organization [facility] Address [address], [place] [address] Care Team Providers Care Websphere Administrator Name Role Phone Erna Sierra PA-C Primary Care Provider +1- [phone] Encounter Details Date Type Department Care Team (Latest Contact Info) Description 09/02/2017 Correspondence [place] Occupational and Environmental Medicine 2220 [place] [address] Ngozi Contreras MD [facility] [place] [address] AUTH FOR [facility] MEDICINE EXAM Social History Tobacco Use Types Packs/Day Years [...] st Contact Info) Description 02/20/2024 9:30 AM RECYCLING CENTER OPERATOR Appointment Bronwyn Pau[place] [address] General Surgery [address] [place] [address] MD 1415 [place] [address] 03/13/2024 1:00 PM RECYCLING CENTER OPERATOR Appointment [facility] [address] [place] [address] Erna Sierra PA-C [address] [place] [address] 03/30/2024 11:30 AM RECYCLING CENTER OPERATOR Appointment Endoscopy at [facility] at [place] [address] [facility] 6500 [facility] [place] [address] Doe Landeros MD 6500 [place] [address] 08/08/2024 1:00 PM CDT Telemedicine Specialty Center 401 Endocrinology Clinic 401 [facility] [place], [place] [phone] Khadijah Tamayo MD 401 [place], [place] [phone] documented as of this encounter Visit Diagnoses Not on filedocumented in this encounter Additional Health Concerns Infection Onset Date Last Indicated Resolved Time R/O COVID19 11/26/2019 11/26/2019 11/27/2019 6:46 AM CDT R/O COVID19 02/19/2021 02/19/2021 02/20/2021 2:03 AM RECYCLING CENTER OPERATOR R/O COVID19 04/21/2021 04/21/2021 04/21/2021 8:52 PM CDT R/O COVID19 04/23/2021 04/23/2021 04/23/2021 6:52 PM CDT R/O COVID19 04/27/2021 04/27/2021 04/27/2021 6:03 PM CDT R/O COVID19 06/08/2021 06/08/2021 06/09/2021 12:3 5 AM CDT R/O COVID19 06/23/2021 06/23/2021 06/23/2021 8:31 PM CDT COVID19 06/23/2021 06/23/2021 07/04/2021 3:17 AM CDT R/O COVID19 03/01/2022 03/01/2022 03/01/2022 4:19 PM RECYCLING CENTER OPERATOR documented as of this encounter Care Teams Websphere Administrator Relationship Specialty Start Date End Date Erna Sierra PA-C [address] [place] [address] PCP - General Physician Tapeman 01/10/20 documented as of this encounter
--- OUTSIDE RECORDS SUMMARY | 2024-02-19 09:16 | XMS_ITS | Encounter Summary ---
Author Organization [facility] Address [address], [place] [address] Care Team Providers Care Store Detective Name Role Phone Erna Sierra PA-C Primary Care Provider +1- [phone] Encounter Details Date Type Department Care Team (Latest Contact Info) Description 08/24/2016 Correspondence [facility] Occupational and Environmental Medicine [address] [place] [address] Edu Perdue PA-C [address] [place], [place] [phone] MED EXAM REPORT FORM Social History Tobacco Use Types [...] st Contact Info) Description 02/20/2024 9:30 AM THERMOMETER TESTER Appointment Bronwyn Pauly [place] [address] General Surgery [address] [place] [address] MD 1415 [place] [address] 03/13/2024 1:00 PM THERMOMETER TESTER Appointment [facility] [address] [place] [address] Erna Sierra PA-C [address] [place] [address] 03/30/2024 11:30 AM THERMOMETER TESTER Appointment Endoscopy at [facility] [place] [address] [facility] [address] [place] [address]. [place] [address] [place] [address] [place] [address] 08/08/2024 1:00 PM CDT Tele[facility]icine Specialty Center 401 End[facility] 401 [facility]. [place], [place] [phone] Khadijah Tamayo MD 401 [place], [place] [phone] documented as of this encounter Visit Diagnoses Not on filedocumented in this encounter Additional Health Concerns Infection Onset Date Last Indicated Resolved Time R/O COVID19 11/26/2019 11/26/2019 11/27/2019 6:46 AM CDT R/O COVID19 02/19/2021 02/19/2021 02/20/2021 2:03 AM THERMOMETER TESTER R/O COVID19 04/21/2021 04/21/2021 04/21/2021 8:52 PM CDT R/O COVID19 04/23/2021 04/23/2021 04/23/2021 6:52 PM CDT R/O COVID19 04/27/2021 04/27/2021 04/27/2021 6:03 PM CDT R/O COVID19 06/08/2021 06/08/2021 06/09/2021 12:3 5 AM CDT R/O COVID19 06/23/2021 06/23/2021 06/23/2021 8:31 PM CDT COVID19 06/23/2021 06/23/2021 07/04/2021 3:17 AM CDT R/O COVID19 03/01/2022 03/01/2022 03/01/2022 4:19 PM THERMOMETER TESTER documented as of this encounter Care Teams Store Detective Relationship Specialty Start Date End Date Erna Sierra PA-C [address] [place] [address] PCP - General Physician Bearing Ring Assembler 01/10/20 documented as of this encounter
--- OUTSIDE RECORDS SUMMARY | 2024-02-19 09:16 | XMS_ITS | Encounter Summary ---
Author Organization [facility] Address [address], [place] [address] Care Team Providers Care Hard Metals Hand Engraver Name Role Phone Erna Sierra PA-C Primary Care Provider +1- [phone] Encounter Details Date Type Department Care Team (Latest Contact Info) Description 09/02/2017 Correspondence [place] Occupational and Environmental Medicine [address] [place] [address] Ngozi Contreras MD [facility] [place] [address] [facility] MEDICINE PT AUTH TO VIEW [facility] CHART Social History Tobacco Use Types Packs/Day Years [...] st Contact Info) Description 02/20/2024 9:30 AM RETAIL VISUAL MERCHANDISER Appointment Bronwyn Pauly [place] [address] General Surgery [address] [place] [address] MD 1415 [facility] [place] [address] 03/13/2024 1:00 PM RETAIL VISUAL MERCHANDISER Appointment [facility] [address] [place] [address] Erna Sierra PA-C [address] [place] [address] 03/30/2024 11:30 AM RETAIL VISUAL MERCHANDISER Appointment Endoscopy at [facility] at [facility] 6500 [facility] [address] [place] [address]. [place] [address] Doe Landeros MD 6500 [place] [address] 08/08/2024 1:00 PM CDT Telemedicine Specialty Center [address] [place] [address]. [place] [address] Khadijah Tamayo MD 401 [place], [place] [phone] documented as of this encounter Visit Diagnoses Not on filedocumented in this encounter Additional Health Concerns Infection Onset Date Last Indicated Resolved Time R/O COVID19 11/26/2019 11/26/2019 11/27/2019 6:46 AM CDT R/O COVID19 02/19/2021 02/19/2021 02/20/2021 2:03 AM RETAIL VISUAL MERCHANDISER R/O COVID19 04/21/2021 04/21/2021 04/21/2021 8:52 PM CDT R/O COVID19 04/23/2021 04/23/2021 04/23/2021 6:52 PM CDT R/O COVID19 04/27/2021 04/27/2021 04/27/2021 6:03 PM CDT R/O COVID19 06/08/2021 06/08/2021 06/09/2021 12:3 5 AM CDT R/O COVID19 06/23/2021 06/23/2021 06/23/2021 8:31 PM CDT COVID19 06/23/2021 06/23/2021 07/04/2021 3:17 AM CDT R/O COVID19 03/01/2022 03/01/2022 03/01/2022 4:19 PM RETAIL VISUAL MERCHANDISER documented as of this encounter Care Teams Hard Metals Hand Engraver Relationship Specialty Start Date End Date Erna Sierra PA-C [address] [place] [address] PCP - General Physician Decorator Inspector 01/10/20 documented as of this encounter
--- OUTSIDE RECORDS SUMMARY | 2024-02-19 09:16 | XMS_ITS | Encounter Summary ---
Author Organization [facility] Address [address] [address] Care Team Providers Care Marble Cutter Operator Name Role Phone Erna Sierra PA-C Primary Care Provider +1- [phone] Encounter Details Date Type Department Care Team (Latest Contact Info) Description 09/02/2017 Correspondence [place] Occupational and Environmental Medicine [address] [place] [address] Ngozi Contreras MD [facility] [place] [address] STOP BANG DOT MARTIR PROTOCOL Social History [...] st Contact Info) Description 02/20/2024 9:30 AM DIRECTOR BROADCAST Appointment Bronwyn Pauly [place] [address] General Surgery [address] [place] [address] MD 1415 [place] [address] 03/13/2024 1:00 PM DIRECTOR BROADCAST Appointment [facility] [address] [place] [address] Erna Sierra PA-C [address] [place] [address] 03/30/2024 11:30 AM DIRECTOR BROADCAST Appointment Endoscopy at [facility] [place] [address] [facility] 6500 [place] [address] Doe Landeros MD 6500 [place] [address] 08/08/2024 1:00 PM CDT Telemedicine Specialty Center 401 Endocrinology Clinic 401 [facility] [place], [place] [phone] Khadijah Tamayo MD 401 [place], [place] [phone] documented as of this encounter Visit Diagnoses Not on filedocumented in this encounter Additional Health Concerns Infection Onset Date Last Indicated Resolved Time R/O COVID19 11/26/2019 11/26/2019 11/27/2019 6:46 AM CDT R/O COVID19 02/19/2021 02/19/2021 02/20/2021 2:03 AM DIRECTOR BROADCAST R/O COVID19 04/21/2021 04/21/2021 04/21/2021 8:52 PM CDT R/O COVID19 04/23/2021 04/23/2021 04/23/2021 6:52 PM CDT R/O COVID19 04/27/2021 04/27/2021 04/27/2021 6:03 PM CDT R/O COVID19 06/08/2021 06/08/2021 06/09/2021 12:3 5 AM CDT R/O COVID19 06/23/2021 06/23/2021 06/23/2021 8:31 PM CDT COVID19 06/23/2021 06/23/2021 07/04/2021 3:17 AM CDT R/O COVID19 03/01/2022 03/01/2022 03/01/2022 4:19 PM DIRECTOR BROADCAST documented as of this encounter Care Teams Marble Cutter Operator Relationship Specialty Start Date End Date Erna Sierra PA-C [address] [place] [address] PCP - General Physician Rn Staffing 01/10/20 documented as of this encounter
--- OUTSIDE RECORDS SUMMARY | 2024-02-19 09:16 | XMS_ITS | Encounter Summary ---
Author Organization Count includes the [facility] Address [address] [address] Care Team Providers Care Horticultural Farmworker Name Role Phone Erna Sierra PA-C Primary Care Provider +1- [phone] Encounter Details Date Type Department Care Team (Latest Contact Info) Description 09/02/2017 Correspondence [place] Occupational and Environmental Medicine 22[address] [place] [address] Ngozi Contreras MD [facility] [place] [address] MEDICAL EXAMINERS CERTIFICATE Social History Tobacco Use Types Packs/Day Years [...] st Contact Info) Description 02/20/2024 9:30 AM MARINE EQUIPMENT PRESERVATION INSPECTOR Appointment Bronwyn Pauly [place] [address] General Surgery [address] [place] [address] MD 1415 [facility] [place] [address] 03/13/2024 1:00 PM MARINE EQUIPMENT PRESERVATION INSPECTOR Appointment [facility] [address] [place] [address] Erna Sierra PA-C [address] [place] [address] 03/30/2024 11:30 AM MARINE EQUIPMENT PRESERVATION INSPECTOR Appointment Endoscopy at [facility] [place] 436830 [facility] [address] [place] [address]. [place] [address] [place] [address] [place] [address] 08/08/2024 1:00 PM CDT Telemedicine Specialty Center 401 Endocrinology Clinic 401 [facility] [place], [place] [phone] Khadijah Tamayo MD 401 [place], [place] [phone] documented as of this encounter Visit Diagnoses Not on filedocumented in this encounter Additional Health Concerns Infection Onset Date Last Indicated Resolved Time R/O COVID19 11/26/2019 11/26/2019 11/27/2019 6:46 AM CDT R/O COVID19 02/19/2021 02/19/2021 02/20/2021 2:03 AM MARINE EQUIPMENT PRESERVATION INSPECTOR R/O COVID19 04/21/2021 04/21/2021 04/21/2021 8:52 PM CDT R/O COVID19 04/23/2021 04/23/2021 04/23/2021 6:52 PM CDT R/O COVID19 04/27/2021 04/27/2021 04/27/2021 6:03 PM CDT R/O COVID19 06/08/2021 06/08/2021 06/09/2021 12:3 5 AM CDT R/O COVID19 06/23/2021 06/23/2021 06/23/2021 8:31 PM CDT COVID19 06/23/2021 06/23/2021 07/04/2021 3:17 AM CDT R/O COVID19 03/01/2022 03/01/2022 03/01/2022 4:19 PM MARINE EQUIPMENT PRESERVATION INSPECTOR documented as of this encounter Care Teams Horticultural Farmworker Relationship Specialty Start Date End Date Erna Sierra PA-C [address] [place] [address] PCP - General Physician Machine Worker 01/10/20 documented as of this encounter
== END 2024-02-19 09:15 | disposition home or self-care (01) ==
LOC: ED 09:13
PROVIDERS: Emergency Provider Student in an Organized Health Care Education/Training Program
DX: L02.415 Cutaneous abscess of right lower limb (principal)
CPT/HCPCS: 10060; 99283

== ENCOUNTER 2024-10-09 19:21 | Emergency (ER) | payer OTHER, SELFPAY ==
--- OUTSIDE RECORDS SUMMARY | 2024-08-13 11:30 | XMS_ITS | Encounter Summary ---
[facility] Organization [facility] Address [address], [place] [address] Care Team Providers Care Civil Lawyer Name Role Phone Erna Sierra PA-C Primary Care Provider +1- [phone] Reason for Referral * Medication Prior Authorization - Authorized Specialty Diagnoses / Procedures Referred By John t Referred To Contact Khadijah Tamayo MD [address] [place] [address] Phone: tel: fax: Referral ID Status Reason Start Date Expiration Date V isits Requested Visits Authorized [id number] Authorized 07/28/2024 08/27/2025 1 1 Reason for Visit * Reason Comments Medication Questions Entered automatical ly based on patient selection in [employer]. Encounter Details Date Type Department Care Team (Late st Contact Info) Description 08/13/2024 11:30 AM CDT E-Visit Specialty Center [address] [place] [address]. [place] [address] Khadijah Tamayo MD [address] [place] [address] Chief Comp: Medication Questions Social History Tobacco Use Types Packs/Day Years Used Date Smoking Tobacco: Former Cigarettes 0.5 5 0 2010 - 06/11/2014 Passive Smoke Exposure: Never Smokeless Tobacco: Former Chew Quit: 02/07/2014 Alcohol Use Standard Drinks/Week Comments Yes 3 (1 standard drink = 0.6 oz pur e alcohol) occ PHQ-2 Answer Date Recorded PHQ-2 Score 0 04/06/2024 Sex and Gender Information Value Date Recorded Sex Assigned at Not on file Legal Sex Male 10:32 PM CDT Gender Identity Not on file Sexual Orientation Not on file Occupation Industry Job Start Date Job End Date student Not on file 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 Pharmacy was notified via fax and asked them to notify the patient when prescription is ready for chart picker. Kanchan Hare LPN * Renetta Browning RN - 08/27/2024 8:21 AM CDT Jerica AGEE submitted. Questions answered and sent to payer. Renetta Brennan RN 08/27/2024 8:21 AM * Renetta Browning RN - 08/24/2024 8:52 AM CDT Pt reporting cost of Zepbound has increased due to it being changed to a different tier. Wegovy is more cost affective with use of savings card and is requesting to switch to Wegovy. Prescription for Wegovy 2.4 mg sent to pharmacy. Renetta Brennan RN 08/24/2024 8:53 AM * Rosalind Estevez - 08/20/2024 4:51 PM CDT Patient calling to see if nurses are aware of the cost between the Liraglutide vs Ozempic. Please call patient [phone] and what provider would recommend. documented in this encounter Plan of Treatment Upcoming Encounters Date Type Department Care Team (Late st Contact Info) Description 10/18/2024 12:30 PM CDT Appointment [facility] Cancer Care at [facility] [address] [place] [address] Tatyana Crawford MBBS [address] [place] [address] 01/08/2025 1:00 PM REPAIRER Telemedicine Digestive Care at [facility] and Specialty [facility] [address] [place] [address] [place] [address] Jenna Simpson, REFLECTOR DRILLER AND DEBURRER, MEDICAL AFFAIRS DIRECTOR 6500 [place] [address] 01/14/2025 1:00 PM REPAIRER Telemedicine Specialty Center [facility] Endocrinology Clinic [address] [place] [address]. [place], [place] [phone] Khadijah Tamayo MD [address] [place], [place] [phone] documented as of this encounter Visit Diagnoses Not on filedocumented in this encounter Care Teams Civil Lawyer Relationship Specialty Start Date End Date Erna Sierra PA-C [address] [place] [address] PCP - General Physician Media Consultant Outside Sales 01/10/20 documented as of this encounter
--- OUTSIDE RECORDS SUMMARY | 2024-09-04 13:20 | XMS_ITS | Encounter Summary ---
Author Organization [facility] Address [address] [address] Care Team Providers Care Station Engineer Chief Name Role Phone Kale Sierra PA-C Primary Care Provider +1- [phone] Reason for Visit * Reason Comments BLOOD PRESSURE CHECK Follow up on blood pressure, patient reports that he gets dizzy at times and thinks it may be from his blood pressure medication. Encounter Details Date Type Department Care Team (Late st Contact Info) Description 09/04/2024 1:20 PM CDT Office Visit [facility] [address] [place], [place] [phone] Kale Sierra PA-C [address] [place] [address] Lightheadedness (Primary Dx); Essential hypertension (HRC); Obesity, Class III, BMI 40-49.9 (morbid obesity); Leukocytosis, unspecified type (HRC) Social History Tobacco Use Types Packs/Day [...] Sign Reading Time Taken Comments Blood Pressure 118/83 09/04/2024 1:04 PM CDT Pulse 67 09/04/2024 1:04 PM CDT Temperature - - Respiratory Rate - - Oxygen Saturation - - Inhaled Oxygen Concentration - - Weight 145.2 kg (320 lb) 09/04/2024 12:59 PM CDT Height 185.4 cm (6' 1) 09/04/2024 12:59 PM CDT Body Mass Index 42.22 09/04/2024 12:59 PM CDT documented in this encounter Progress Notes * Kale Sierra PA-C - 09/04/2024 1:20 PM CDTAddended by: KALE SIERRA on: 09/04/2024 05:04 PM Modules accepted: Orders * Kale Sierra PA-C - 09/04/2024 1:20 PM CDT Historical: Chief Complaint Patient presents with BLOOD PRESSURE CHECK Follow up on blood pressure, patient reports that he gets dizzy at times and thinks it may be from his blood pressure medication. Patient reports that he has been getting intermittent dizziness mainly when he is changing positions and going from sitting to standing. Wonders if it is his blood pressure medication. Specifically wondering if it occurs when he takes the 2 doses of metoprolol too close together based on his work schedule. He is not getting symptoms daily, has not noticed a particular pattern to when he gets the symptoms. Trying to stay well hydrated. He is also wondering about possibility of switching from Wegovy to Ozempic for weight loss. This was prescribed by his nitrating acid mixer. There is a large olivares difference between Wegovy and Ozempic apparently. I have personally reviewed the patient's allergies, medications, and past medical history in detailand updated the patient record as necessary. Observed: BP 118/83 (BP Location: Right Arm, BP Cuff Size: Large) Pulse 67 Ht 6' 1 (1.854 m) Wt (!) 320 lb (145.2 kg) BMI 42.22 kg/m?? Physical Exam: General Appearance: alert, well appearing, and in no apparent distress Neurologic: normal speech, no facial droop, and alert and oriented x 3 Assessment/Plan: Lightheadedness - BMP; Future - TSH with reflex to fT4 (not for treatment monitoring); Future - Complete Blood Count-No Diff; Future Essential hypertension (HRC) - metoprolol succinate (TOPROL XL) 50 MG 24 hour release tablet; Take 1 Tablet (50 mg) by mouth daily. Obesity, Class III, BMI 40-49.9 (morbid obesity) Lightheadedness: Blood pressure normal, at upper limit of normal with diastolic reading and no significant change with orthostatics today. Checking labs as above to rule out systemic cause, advised that he stay well hydrated and change positions slowly. Given the intermittent nature of his symptoms, he will continue to monitor triggers. He is concerned that symptoms develop if he takes the metoprolol b.i.d. dosing too close together which is a possibility. Therefore switching to metoprolol succinate 50 mg daily, discontinue the twice daily dosing tartrate. Advised monitoring blood pressure at home over the next several weeks and send a few updated blood pressure readings. Also monitor for recurrent symptoms. Hypertension: Chronic, stable, blood pressure currently controlled. Adjusting blood pressure medication as above. Obesity: Under treatment with endocrinology for GLP 1 injectable. Since Ozempic as marked for diabetes, discussed that he likely would not get this covered by insurance. He can certainly check with insurance regarding coverage and reach out to nitrating acid mixer if wanting to switch medications. Answered all patient questions, understands and is comfortable with this plan and will follow up asneeded. Please see orders and patient instructions Kale Sierra PA-C documented in this encounter Plan of Treatment Upcoming Encounters Date Type Department Care Team (Late st Contact Info) Description 10/18/2024 12:30 PM CDT Appointment [facility] [address] [place] [address] Tatyana Crawford MBBS 0[address] [place] [address] 01/08/2025 1:00 PM CONTROL SYSTEMS SPECIALIST Telemedicine Digestive Care at [facility] and Specialty [facility] [address] [facility] [address] [place] [address] Jenna Simpson, ADMINISTRATIVE LAW JUDGE, LOCAL TELEPHONE OPERATOR [address] [place], [place] [address] 01/14/2025 1:00 PM CONTROL SYSTEMS SPECIALIST Telemedicine Specialty Center [address] [place] [address]. [place], [place] [phone] Khadijah Tamayo MD [address] [place] [phone] documented as of this encounter Results * (ABNORMAL) Complete Blood Count-No Diff (09/04/2024 1:50 PM CDT) [facility] Signature WBC 28.5(H) 3.5 - 10.5 x10(9)/L 09/04/2024 3:38 PM CDT [facility] RBC 5.13 4.32 - 5.72 x10(12)/L 09/04/2024 3:38 PM CDT [facility] Hemoglobin 15.4 13.5 - 17.5 g/dL 09/04/2024 3:38 PM CDT [facility] HCT 46.5 38.8 - 50.0 % 09/04/2024 3:38 PM CDT [facility] MCV 90.6 80.0 - 100.0 fL 09/04/2024 3:38 PM CDT [facility] MCH 30.0 27.6 - 33.3 pg 09/04/2024 3:38 PM CDT [facility] MCHC 33.1 31.5 - 35.2 g/dL 09/04/2024 3:38 PM CDT [facility] RDW 14.3 11.9 - 15.5 % 09/04/2024 3:38 PM CDT [facility] Platelets 227 150 - 450 x10(9)/L 09/04/2024 3:38 PM CDT [facility] Blood Venipuncture / Unknown 09/04/2024 1:50 PM CDT 09/04/2024 1:50 PM CDT Kale Sierra PA-C LAB_1 Final Resu lt Performing Organization Address [facility]/ZIP Co de Phone Number [facility] [address] [place] [address] * TSH with reflex to fT4 (not for treatment monitoring) (09/04/2024 1:50 PM CDT) TSH, Reflex 1.45 0.30 - 4.50 uIU/mL 09/04/2024 7:12 PM CDT [facility] Blood Venipuncture / Unknown 09/04/2024 1:50 PM CDT 09/04/2024 1:50 PM CDT Kale Sierra PA-C LAB_1 Final Resu lt Performing Organization Address [facility]/ZIP Co de Phone Number [facility] [address] * (ABNORMAL) BMP (09/04/2024 1:50 PM CDT) Sodium 140 136 - 145 mmol/L 09/04/2024 6:49 PM CDT [facility] Potassium 3.7 3.5 - 5.1 mmol/L 09/04/2024 6:49 PM CDT [facility] Chloride 106 98 - 109 mmol/L 09/04/2024 6:49 PM CDT [facility] CO2 24 20 - 29 mmol/L 09/04/2024 6:49 PM CDT [facility] Anion Gap 10 6 - 16 mmol/L 09/04/2024 6:49 PM CDT [facility] Calcium 9.4 8.4 - 10.4 mg/dL 09/04/2024 6:49 PM T [facility] BUN 21 7 - 26 mg/dL 09/04/2024 6:49 PM T [facility] Creatinine 1.33(H) 0.73 - 1.18 mg/dL 09/04/2024 6:49 PM T [facility] Glucose 83 70 - 100 mg/dL 09/04/2024 6:49 PM T [facility] Comment:The given reference range is for the fasting state. Non-fasting reference range for glucose is 70 - 180 mg/dL. GFR, Estimated >60 >60 mL/min/1. 73m2 09/04/2024 6:49 PM T [facility] Hours Fasting 4.0 8 - 12 Hours 09/04/2024 6:49 PM T [facility] Blood Venipuncture / Unknown 09/04/2024 1:50 PM CDT 09/04/2024 1:50 PM CDT us Kale Sierra PA-C LAB_1 Final Resu lt [facility] [address] [address] [address] [place] [address] documented in this encounter Visit Diagnoses Diagnosis Lightheadedness- Primary Dizziness and giddiness Essential hypertension (HRC) Unspecified essential hypertension Obesity, Class III, BMI 40-49.9 (morbid obesity) Morbid obesity Leukocytosis, unspecified type (HRC) documented in this encounter Care Teams Station Engineer Chief Relationship Specialty Start Date End Date Kale Sierra PA-C [address] [place] [address] PCP - General Physician Meat Processor 01/10/20 documented as of this encounter
--- OUTSIDE RECORDS SUMMARY | 2024-09-04 13:40 | XMS_ITS | Encounter Summary ---
Author Organization [facility] Address [address], [place] [address] Care Team Providers Care Software Engineering Supervisor Name Role Phone Erna Sierra PA-C Primary Care Provider +1- [phone] Encounter Details Date Type Department Care Team (Late st Contact Info) Description 09/04/2024 1:40 PM CDT Lab Visit [facility] [address] [place] [address] Lightheadedness; Leukocytosis, unspecified type (HRC) Social History Tobacco [...] as of this encounter Progress Notes * Kalani Pham - 09/04/2024 1:40 PM CDTAddended by: KALANI PHAM on: 09/05/2024 01:53 PM Modules accepted: Orders documented in this encounter Plan of Treatment Upcoming Encounters Date Type Department Care Team (Late st Contact Info) Description 10/18/2024 12:30 PM CDT Appointment [facility] [address] [place] [address] Tatyana Crawford MBBS [address] [place] [address] 01/08/2025 1:00 PM DIRECTOR OF COUNTERINTELLIGENCE Telemedicine Digestive Care at [facility] and Specialty [facility] [address] [facility] [address] [place] [address] Jenna Simpson, PORCELAIN FINISH SPRAYER, LEAD PERFORMANCE SUPPORT ANALYST [address] [place], [place] [address] 01/14/2025 1:00 PM DIRECTOR OF COUNTERINTELLIGENCE [facility] [address] [facility] [place] [address]. [place], [place] [phone] Khadijah Tamayo MD [address] [place], [place] [phone] documented as of this encounter Procedures Procedure Name Priority Date/Time Associated Diagnosis Comments RBC AND PLATELET MORPHOLOGY Routine 09/04/2024 1:50 PM CDT Lightheadedness CBC WITH DIFFERENTIAL REVIEW Routine 09/04/2024 1:50 PM CDT Leukocytosis, unspecified type (HRC) PATH REVIEW (LAB USE ONLY) Routine 09/04/2024 1:50 PM CDT Leukocytosis, unspecified type (HRC) BASIC METABOLIC PANEL Routine 09/04/2024 1:50 PM CDT Lightheadedness DIFFERENTIAL Routine 09/04/2024 1:50 PM CDT Leukocytosis, unspecified type (HRC) COMPLETE BLOOD COUNT-NO DIFF Routine 09/04/2024 1:50 PM CDT Lightheadedness TSH, SENSITIVE (WITH REFLEX) Routine 09/04/2024 1:50 PM CDT Lightheadedness documented in this encounter Results * Blood Smear Review (Internal QC Check) (09/04/2024 1:50 PM CDT) Pathologist [facility] Path Review Slide review done internally for supplier quality purposes 09/05/2024 1:53 PM CDT [facility] Blood Venipuncture / Unknown 09/04/2024 1:50 PM CDT 09/05/2024 8:10 AM CDT us Erna Sierra PA-C LAB_1 [place] [address], [facility] * (ABNORMAL) Differential (09/04/2024 1:50 PM CDT) Pathologist [facility] Polychromasia Slight(A) None Seen 09/05/2024 1:43 PM CDT [facility] Giant Platelets Present(A) Absent 1:43 PM CDT [facility] RBC Morphology Reviewed 09/05/2024 1:43 PM CDT [facility] Platelet Estimate Adequate Adequate 025 1:43 PM CDT [facility] Myelocyte Absolute 0.3(H) <=0.0 10(9)/L 09/05/2024 1:43 PM CDT [facility] Metamyelocyte Absolute 0.6(H) <=0.0 10(9)/L 09/05/2024 1:43 PM CDT [facility] Neutrophil Absolute 17.5(H) 1.7 - 7.0 10(9)/L 09/05/2024 1:43 PM CDT [facility] Lymphocyte Absolute 5.6(H) 1.0 - 4.8 10(9)/L 09/05/2024 1:43 PM [facility] Monocyte Absolute 1.7(H) 0.2 - 0.9 10(9)/L 09/05/2024 1:43 PM [facility] Eosinophil Absolute 2.0(H) 0.0 - 0.5 10(9)/L 09/05/2024 1:43 PM [facility] Basophil Absolute 0.6(H) 0.0 - 0.3 10(9)/L 09/05/2024 1:43 PM [facility] Blood Venipuncture / Unknown 09/04/2024 1:50 PM CDT 09/05/2024 8:10 AM CDT us Erna Sierra PA-C LAB_1 Final Resu lt [address] [address], [facility] * (ABNORMAL) CBC with Differential Review (09/04/2024 1:50 PM CDT) Hematology Review 09/05/2024 1:43 PM [facility] WBC 28.2(H) 3.5 - 10.5 x10(9)/L 09/05/2024 1:43 PM [facility] RBC 5.17 4.32 - 5.72 x10(12)/L 09/05/2024 1:43 PM [facility] Hemoglobin 15.6 13.5 - 17.5 g/dL 09/05/2024 1:43 PM [facility] HCT 47.2 38.8 - 50.0 % 09/05/2024 1:43 PM [facility] MCV 91.3 80.0 - 100.0 fL 09/05/2024 1:43 PM [facility] MCH 30.2 27.6 - 33.3 pg 09/05/2024 1:43 PM [facility] MCHC 33.1 31.5 - 35.2 g/dL 09/05/2024 1:43 PM [facility] RDW 14.8 11.9 - 15.5 % 09/05/2024 1:43 PM [facility] Platelets 233 150 - 450 x10(9)/L 09/05/2024 1:43 PM CDT [facility] Automated NRBC 0 <=0 /100 WBC 09/05/2024 1:43 PM CDT [facility] Blood Venipuncture / Unknown 09/04/2024 1:50 PM CDT 09/05/2024 8:10 AM CDT Erna Sierra PA-C LAB_1 Final Resu lt Performing Organization Address City/[facility]/ZIP Co de Phone Number [address] [address], [facility] * Morphology-RBC and Platelet (09/04/2024 1:50 PM CDT) RBC Morphology Reviewed 09/04/2024 3:38 PM CDT [facility] Platelet Estimate Adequate Adequate 09/04/2024 3:38 PM CDT [facility] Blood Venipuncture / Unknown 09/04/2024 1:50 PM CDT 09/04/2024 1:50 PM CDT Erna Sierra PA-C LAB_1 Final Resu lt Performing Organization Address [facility] de Phone Number [facility] [address] [place] [address] * (ABNORMAL) Complete Blood Count-No Diff (09/04/2024 1:50 PM CDT) WBC 28.5(H) 3.5 - 10.5 x10(9)/L 09/04/2024 3:38 PM CDT [facility] RBC 5.13 4.32 - 5.72 x10(12)/L 09/04/2024 3:38 PM CDT [facility] Hemoglobin 15.4 13.5 - 17.5 g/dL 09/04/2024 3:38 PM CDT [facility] HCT 46.5 38.8 - 50.0 % 09/04/2024 3:38 PM CDT [facility] MCV 90.6 80.0 - 100.0 fL 09/04/2024 3:38 PM CDT [facility] MCH 30.0 27.6 - 33.3 pg 09/04/2024 3:38 PM CDT [facility] MCHC 33.1 31.5 - 35.2 g/dL 09/04/2024 3:38 PM CDT [facility] RDW 14.3 11.9 - 15.5 % 09/04/2024 3:38 PM CDT [facility] Platelets 227 150 - 450 x10(9)/L 09/04/2024 3:38 PM CDT [facility] Blood Venipuncture / Unknown 09/04/2024 1:50 PM CDT 09/04/2024 1:50 PM CDT Erna Sierra PA-C LAB_1 Final Resu lt Performing Organization Address [facility]/ZIP Co de Phone Number [facility] [address] [place] [address] * TSH with reflex to fT4 (not for treatment monitoring) (09/04/2024 1:50 PM CDT) TSH, Reflex 1.45 0.30 - 4.50 uIU/mL 09/04/2024 7:12 PM CDT [facility] Blood Venipuncture / Unknown 09/04/2024 1:50 PM CDT 09/04/2024 1:50 PM CDT Erna Sierra PA-C LAB_1 Final Resu lt Performing Organization Address City/[facility]/ZIP Co de Phone Number [facility] [address] * (ABNORMAL) BMP (09/04/2024 1:50 PM CDT) Sodium 140 136 - 145 mmol/L 09/04/2024 6:49 PM CDT [facility] Potassium 3.7 3.5 - 5.1 mmol/L 09/04/2024 6:49 PM CDT [facility] Chloride 106 98 - 109 mmol/L 09/04/2024 6:49 PM CDT [facility] CO2 24 20 - 29 mmol/L 09/04/2024 6:49 PM CDT [facility] Anion Gap 10 6 - 16 mmol/L 09/04/2024 6:49 PM T [facility] Calcium 9.4 8.4 - 10.4 mg/dL 09/04/2024 6:49 PM T [facility] BUN 21 7 - 26 mg/dL 09/04/2024 6:49 PM T [facility] Creatinine 1.33(H) 0.73 - 1.18 mg/dL 09/04/2024 6:49 PM T [facility] Glucose 83 70 - 100 mg/dL 09/04/2024 6:49 PM T [facility] Comment:The given reference range is for the fasting state. Non-fasting reference range for glucose is 70 - 180 mg/dL. GFR, Estimated >60 >60 mL/min/1. 73m2 09/04/2024 6:49 PM T [facility] Hours Fasting 4.0 8 - 12 Hours 09/04/2024 6:49 PM T [facility] Blood Venipuncture / Unknown 09/04/2024 1:50 PM CDT 09/04/2024 1:50 PM CDT us Erna Sierra PA-C LAB_1 Final Resu lt [facility] [address] [address] [address] [place] [address] documented in this encounter Visit Diagnoses Diagnosis Lightheadedness Dizziness and giddiness Leukocytosis, unspecified type (HRC) documented in this encounter Care Teams Software Engineering Supervisor Relationship Specialty Start Date End Date Erna Sierra PA-C [address] [place] [address] PCP - General Physician International Controller 01/10/20 documented as of this encounter
--- OUTSIDE RECORDS SUMMARY | 2024-09-05 06:55 | XMS_ITS | Encounter Summary ---
Author Organization [facility] Address [address], [place] [address] Care Team Providers Care Senior Clinical Research Associate Name Role Phone Erna Sierra PA-C Primary Care Provider +1- [phone] Reason for Visit * Reason Comments Follow-up, NOS Entered automaticall y based on patient selection in Nextt. HEADACHE Encounter Details Date Type Department Care Team (Late st Contact Info) Description 09/05/2024 6:55 AM CDT E-Visit [facility] [address] [place], [place] [phone] Erna Sierra PA-C [address] [place], [place] [phone] Dx: Leukocytosis, unspecified type (HRC) (Primary Dx) Social History Tobacco Use Types [...] as of this encounter Nursing Notes * Ella Gates RN - 09/05/2024 9:49 AM CDT Clinician: Review and advise and Bill for E-Visit as appropriate Patient/child care specialist request: Input needed: lab results Specific Request: Please advise on pt concerned from recent labs from yesterday * Reyna Jesus - 09/05/2024 7:13 AM CDT Patient notes symptoms in their message. Please review and respond to patient. RN: Review online account message. If appointment is necessary and you are unable to reach the patient respond to message using .[email or web address] documented in this encounter Plan of Treatment Upcoming Encounters Date Type Department Care Team (Late st Contact Info) Description 10/18/2024 12:30 PM CDT Appointment [facility] [address] [place] [address] Tatyana Crawford MBBS [address] [place], [place] [address] 01/08/2025 1:00 PM WOODYARD OPERATOR Telemedicine Digestive [facility] at [facility]ty [facility] [address] [place] [address] [place] [address] Jenna Simpson, RV TECHNICIAN, DEBEADER [address] [place] [address] 01/14/2025 1:00 PM WOODYARD OPERATOR [facility] [address] [place] [address]. [place], [place] [phone] Khadijah Tamayo MD [address] [place] [address] documented as of this encounter Results * BMP (09/06/2024 11:39 AM CDT) Sodium 138 136 - 145 mmol/L 09/06/2024 3:44 PM CDT [facility] Potassium 3.5 3.5 - 5.1 mmol/L 09/06/2024 3:44 PM CDT [facility] Chloride 104 98 - 109 mmol/L 09/06/2024 3:44 PM CDT [facility] CO2 25 20 - 29 mmol/L 09/06/2024 3:44 PM CDT [facility] Anion Gap 9 6 - 16 mmol/L 09/06/2024 3:44 PM CDT [facility] Calcium 8.9 8.4 - 10.4 mg/dL 09/06/2024 3:44 PM CDT [facility] BUN 22 7 - 26 mg/dL 09/06/2024 3:44 PM CDT [facility] Creatinine 1.18 0.73 - 1.18 mg/dL 09/06/2024 3:44 PM CDT [facility] Glucose 77 70 - 100 mg/dL 09/06/2024 3:44 PM T [facility] Comment:The given reference range is for the fasting state. Non-fasting reference range for glucose is 70 - 180 mg/dL. GFR, Estimated >60 >60 mL/min/1. 73m2 09/06/2024 3:44 PM CDT [facility] Hours Fasting 1.0 8 - 12 Hours 09/06/2024 3:44 PM CDT [facility] () Blood Venipuncture / Unknown 09/06/2024 11:39 AM CDT 09/06/2024 11:39 AM CDT us Erna Sierra PA-C LAB_1 Final Resu lt [facility] [address] [address], [facility] () [address] [place] [address], [facility] * Peripheral Smear Morphology (09/06/2024 11:39 AM CDT) Case Report Peripheral Smear Case: [id number] Authorizing Provider: Erna Sierra PA-C Collected: 09/06/2024 1139 Ordering Location: [facility] Received: 09/06/2024 1139 Practice Pathologist: Felicia Denny MD Specimen: Blood, Venous 09/07/2024 11:41 AM T [facility] FINAL DIAGNOSIS Peripheral blood, morphology: Leukocytosis with left-shifted neutrophilia, mild eosinophilia, and mild basophilia Slightly elevated lymphocyte and monocyte count, nonspecific See comment Comment: This could be reactive leukocytosis in the setting of an inflammatory process. A primary bone marrow disorder (myeloproliferativ e neoplasm) is in the differential. Consider ESR and C-reactive protein levels to evaluate for inflammation. BCR::ABL1 PCR on peripheral blood (qualitative with reflex to quantitative, miscellaneous test, ARUP test code [id number]) could also be considered to evaluate for chronic myeloid leukemia. 09/07/2024 11:41 AM [facility] at 1141 CDT Clinical Information Worsening lymphocytosis unexplained etiology 09/07/2024 11:41 AM [facility] Microscopic Description Last CBC w/differential result: Lab Results Component Value Date/Time WBC 26.6 (H) 09/06/2024 11:39 AM RBC 4.86 09/06/2024 11:39 AM HGB 14.6 09/06/2024 11:39 AM HCT 44.0 09/06/2024 11:39 AM MCV 90.5 09/06/2024 11:39 AM MCH 30.0 09/06/2024 11:39 AM MCHC 33.2 09/06/2024 11:39 AM PLTS 202 09/06/2024 11:39 AM RDW 14.8 09/06/2024 11:39 AM PMN 15.2 (H) 09/06/2024 11:39 AM LYMA 5.9 (H) 09/06/2024 11:39 AM MONOA 1.3 (H) 09/06/2024 11:39 AM EOSA 1.3 (H) 09/06/2024 11:39 AM BASA 1.3 (H) 09/06/2024 11:39 AM PERIPHERAL BLOOD MORPHOLOGY: Erythrocytes: Normocytic normochromic without significant anisopoikilocytosi s. No schistocytes or spherocytes are seen. There is no increase in polychromasia. Leukocytes: Neutrophils are left-shifted with normal granularity. Eosinophils and basophils are mildly increased. Lymphocytes and monocytes are morphologically unremarkable. No blasts are seen. Platelets: Normal in number, morphology, and granularity. 09/07/2024 11:41 AM CDT [facility] Embedded Images 09/07/2024 11:41 AM [facility] Blood VENOUS BLOOD SPECIMEN / Unknown Venipuncture / Unknown 09/06/2024 11:39 AM CDT 09/06/2024 11:39 AM CDT Erna Sierra PA-C LAB PATHOLOGY Final Resu lt Performing Organization Address [facility] Co de Phone Number [address] * Reticulocyte Count, Automated (09/06/2024 11:39 AM CDT) Retic % 2.10 0.77 - 2.36 % 09/06/2024 5:13 PM [facility] Retic Absolute 0.105 0.038 - 0.113 x10(6)/uL 09/06/2024 5:13 PM [facility] Blood Venipuncture / Unknown 09/06/2024 11:39 AM CDT 09/06/2024 11:39 AM CDT Erna Sierra PA-C LAB_1 Final Resu lt Performing Organization Address [facility]/ZIP Co de Phone Number [address] documented in this encounter Visit Diagnoses Diagnosis Leukocytosis, unspecified type (HRC)- Primary documented in this encounter Care Teams Senior Clinical Research Associate Relationship Specialty Start Date End Date Erna Sierra PA-C [address] [place] [address] PCP - General Physician Machine Hostler 01/10/20 documented as of this encounter
--- OUTSIDE RECORDS SUMMARY | 2024-09-06 11:50 | XMS_ITS | Encounter Summary ---
Author Organization [facility] Address [address] [place] [address] Care Team Providers Care Lining Stamper Name Role Phone Erna Sierra PA-C Primary Care Provider +1- [phone] Encounter Details Date Type Department Care Team (Late st Contact Info) Description 09/06/2024 11:50 AM CDT Lab Visit [facility] [address] [place] [phone] Leukocytosis, unspecified type (HRC) Social History Tobacco [...] Info) Description 10/18/2024 12:30 PM CDT Appointment [facility] [address] [place] [address] Tatyana Crawford MBBS [address] [place] [address] 01/08/2025 1:00 PM SOLUTION DIRECTOR Telemedicine Digestive Care at [facility] [place] [address] [place] [address] [place] [address] Jenna Simpson, CHAIRMAN PRESIDENT AND CHIEF EXECUTIVE OFFICER, COAL CUTTING MACHINE OPERATOR [address] [place], [place] [address] 01/14/2025 1:00 PM SOLUTION DIRECTOR Telemedicine Specialty Center [address] [place] [address]. [place], [place] [phone] Khadijah Tamayo MD [address] [place], [place] [phone] documented as of this encounter Procedures Procedure Name Priority Date/Time Associated Diagnosis Comments PERIPHERAL SMEAR MORPHOLOGY Routine 09/06/2024 11:39 AM CDT Leukocytosis, unspecified type (HRC) CBC WITH DIFFERENTIAL REVIEW Routine 09/06/2024 11:39 AM CDT Leukocytosis, unspecified type (HRC) BASIC METABOLIC PANEL Routine 09/06/2024 11:39 AM CDT Leukocytosis, unspecified type (HRC) DIFFERENTIAL Routine 09/06/2024 11:39 AM CDT Leukocytosis, unspecified type (HRC) RETIC, AUTOMATED Routine 09/06/2024 11:3 9 AM CDT Leukocytosis, unspecified type (HRC) C-REACTIVE PROTEIN Routine 09/06/2024 11 :39 AM CDT Leukocytosis, unspecified type (HRC) documented in this encounter Results * C-Reactive Protein (09/06/2024 11:39 AM CDT) C-Reactive Protein 0.4 0.0 - 0.5 mg/dL 09/10/2024 2:16 PM CDT [facility] Blood Venipuncture / Unknown 09/06/2024 11:39 AM CDT 09/06/2024 11:39 AM CDT us Erna Sierra PA-C LAB_1 Final Resu lt [facility] [address] * (ABNORMAL) Differential (09/06/2024 11:39 AM CDT) Pathologist [facility] Large Platelets Present(A) Absent 7:38 PM T [facility] RBC Morphology Reviewed 09/06/2024 7:38 PM [facility] Platelet Estimate Adequate Adequate 025 7:38 PM [facility] Myelocyte Absolute 0.3(H) <=0.0 10(9)/L 09/06/2024 7:38 PM [facility] Metamyelocyte Absolute 1.3(H) <=0.0 10(9)/L 09/06/2024 7:38 PM [facility] Neutrophil Absolute 15.2(H) 1.7 - 7.0 10(9)/L 09/06/2024 7:38 PM T [facility] Lymphocyte Absolute 5.9(H) 1.0 - 4.8 10(9)/L 09/06/2024 7:38 PM [facility] Monocyte Absolute 1.3(H) 0.2 - 0.9 10(9)/L 09/06/2024 7:38 PM [facility] Eosinophil Absolute 1.3(H) 0.0 - 0.5 10(9)/L 09/06/2024 7:38 PM [facility] Basophil Absolute 1.3(H) 0.0 - 0.3 10(9)/L 09/06/2024 7:38 PM [facility] Blood Venipuncture / Unknown 09/06/2024 11:39 AM CDT 09/06/2024 11:47 AM CDT Erna Sierra PA-C LAB_1 Final Resu lt Performing Organization Address [facility] [place] [address], [facility] * (ABNORMAL) CBC with Differential Review (09/06/2024 11:39 AM CDT) Hematology Review 09/06/2024 7:38 PM [facility] WBC 26.6(H) 3.5 - 10.5 x10(9)/L 09/06/2024 7:38 PM [facility] RBC 4.86 4.32 - 5.72 x10(12)/L 09/06/2024 7:38 PM [facility] Hemoglobin 14.6 13.5 - 17.5 g/dL 09/06/2024 7:38 PM [facility] HCT 44.0 38.8 - 50.0 % 09/06/2024 7:38 PM [facility] MCV 90.5 80.0 - 100.0 fL 09/06/2024 7:38 PM [facility] MCH 30.0 27.6 - 33.3 pg 09/06/2024 7:38 PM [facility] MCHC 33.2 31.5 - 35.2 g/dL 09/06/2024 7:38 PM [facility] RDW 14.8 11.9 - 15.5 % 09/06/2024 7:38 PM [facility] Platelets 202 150 - 450 x10(9)/L 09/06/2024 7:38 PM [facility] Automated NRBC 0 <=0 /100 WBC 09/06/2024 7:38 PM [facility] Blood Venipuncture / Unknown 09/06/2024 11:39 AM CDT 09/06/2024 11:47 AM CDT Erna Sierra PA-C LAB_1 Final Resu lt [address] [address], [facility] * BMP (09/06/2024 11:39 AM CDT) Sodium 138 136 - 145 mmol/L 09/06/2024 3:44 PM CDT [facility] Potassium 3.5 3.5 - 5.1 mmol/L 09/06/2024 3:44 PM CDT [facility] Chloride 104 98 - 109 mmol/L 09/06/2024 3:44 PM CDT [facility] CO2 25 20 - 29 mmol/L 09/06/2024 3:44 PM CDT [facility] Anion Gap 9 6 - 16 mmol/L 09/06/2024 3:44 PM CDT [facility] Calcium 8.9 8.4 - 10.4 mg/dL 09/06/2024 3:44 PM CDT [facility] BUN 22 7 - 26 mg/dL 09/06/2024 3:44 PM CDT [facility] Creatinine 1.18 0.73 - 1.18 mg/dL 09/06/2024 3:44 PM CDT [facility] Glucose 77 70 - 100 mg/dL 09/06/2024 3:44 PM T [facility] Comment:The given reference range is for the fasting state. Non-fasting reference range for glucose is 70 - 180 mg/dL. GFR, Estimated >60 >60 mL/min/1. 73m2 09/06/2024 3:44 PM CDT [facility] Hours Fasting 1.0 8 - 12 Hours 09/06/2024 3:44 PM CDT [facility] ([facility]) Blood Venipuncture / Unknown 09/06/2024 11:39 AM CDT 09/06/2024 11:39 AM CDT Erna Sierra PA-C LAB_1 Final Resu lt [facility] [address] [address], [facility]) [address] [place] [address] * Peripheral Smear Morphology (09/06/2024 11:39 AM CDT) Case Report Peripheral Smear Case: [id number] Authorizing Provider: Erna Sierra PA-C Collected: 09/06/2024 1139 Ordering Location: [facility] Received: 09/06/2024 1139 Practice Pathologist: Felicia Denny MD Specimen: Blood, Venous 09/07/2024 11:41 AM T [facility] FINAL DIAGNOSIS Peripheral blood, morphology: Leukocytosis with [...] to quantitative, miscellaneous test, ARUP test code [id number]) could also be considered to evaluate for chronic myeloid leukemia. 09/07/2024 11:41 AM [facility] at 1141 CDT Clinical Information Worsening lymphocytosis unexplained etiology 09/07/2024 11:41 AM [facility] Microscopic Description Last CBC w/differential result: Lab [...] morphology, and granularity. 09/07/2024 11:41 AM CDT [facility] Embedded Images 09/07/2024 11:41 AM [facility] Blood VENOUS BLOOD SPECIMEN / Unknown Venipuncture / Unknown 09/06/2024 11:39 AM CDT 09/06/2024 11:39 AM CDT Erna Sierra PA-C LAB PATHOLOGY Final Resu lt Performing Organization Address City/[facility] Co de Phone Number [address] * Reticulocyte Count, Automated (09/06/2024 11:39 AM CDT) Retic % 2.10 0.77 - 2.36 % 09/06/2024 5:13 PM [facility] Retic Absolute 0.105 0.038 - 0.113 x10(6)/uL 09/06/2024 5:13 PM [facility] Blood Venipuncture / Unknown 09/06/2024 11:39 AM CDT 09/06/2024 11:39 AM CDT Erna Sierra PA-C LAB_1 Final Resu lt Performing Organization Address City/[facility]/ZIP Co de Phone Number [address] documented in this encounter Visit Diagnoses Diagnosis Leukocytosis, unspecified type (HRC) documented in this encounter Care Teams Lining Stamper Relationship Specialty Start Date End Date Erna Sierra PA-C [address] [place] [address] PCP - General Physician Commercial Management Accountant 01/10/20 documented as of this encounter
--- OUTSIDE RECORDS SUMMARY | 2024-09-07 12:00 | XMS_ITS | Encounter Summary ---
Author Organization [facility] Address [address] [address] Care Team Providers Care Mid Wife Name Role Phone Erna Sierra PA-C Primary Care Provider +1- [phone] Reason for Visit * Reason Comments RESULTS, TEST Entered automaticall y based on patient selection in [employer]icketbis. Encounter Details Date Type Department Care Team (Late st Contact Info) Description 09/07/2024 12:00 PM CDT E-Visit [facility] [address] [place], [place] [phone] Erna Sierra PA-C [address] [place], [place] [phone] Chief Comp: RESULTS, TEST Social History Tobacco Use Types Packs/Day [...] PM CDT Appointment [facility] [address] [place] [address] Tatyana Crawford MBBS [address] [place] [address] 01/08/2025 1:00 PM CONCRETE PLANT LABORER Telemedicine Digestive Care at [facility] and Specialty [address] [place] [address] Jenna Simpson, LICENSED AUDIOLOGIST, ANESTHESIOLOGIST ASSISTANT [address] [place], [place] [address] 01/14/2025 1:00 PM CONCRETE PLANT LABORER Telemedicine [facility] [address] [facility] [place] [address]. [place], [place] [phone] Khadijah Tamayo MD [address] [place], [place] [phone] documented as of this encounter Visit Diagnoses Not on filedocumented in this encounter Care Teams Mid Wife Relationship Specialty Start Date End Date Erna Sierra PA-C [address] [place] [address] PCP - General Physician Band Saw Marker 01/10/20 documented as of this encounter
--- OUTSIDE RECORDS SUMMARY | 2024-09-10 11:00 | XMS_ITS | Encounter Summary ---
Author Organization [facility] Address [address], [place] [address] Care Team Providers Care Glue Line Operator Name Role Phone Erna Sierra PA-C Primary Care Provider +1- [phone] Reason for Referral * Medication Prior Authorization - Denied Specialty Diagnoses / Procedures Referred By John t Referred To Contact Khadijah Tamayo MD [address] [place] [address] Phone: tel: fax: Referral ID Status Reason Start Date Expiration Date Visits Re quested Visits Authorized [id number] Denied 1 1 Encounter Details Date Type Department Care Team (Latest Contact Info) Description 09/10/2024 11:00 AM CDT Tele[facility]ty [facility] [address] [place] [address]. 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); Fatty liver (HRC); Obesity, Class III, BMI 40-49.9 (morbid obesity); Prediabetes Social History Tobacco Use Types Packs/Day Years [...] - Inhaled Oxygen Concentration - - Weight 142.4 kg (314 lb) 09/10/2024 11:03 AM CDT Height - - Body Mass Index 41.43 09/04/2024 12:59 PM CDT documented in this encounter Patient Instructions * Patient Instructions* Khadijah Tamayo MD - 09/10/2024 11:00 AM CDT Plan: - Will try Ozempic 2 mg to see if he would get a better coverage - If no insurance coverage for Ozempic, ok to try Wegovy 2.4 mg every 2 weeks - Continue topiramate to 125 mg daily - Weight training exercise 3-4 days/week Thank you for choosing the Endocrinology Clinic at [facility]. Treating physician: Khadijah Tamayo MD Need to [...] For quick and convenient communication, log-on to Fantom, click on the Messages tab on the top, then click Contact your care team (Send a message) and follow the prompts, and we will respond within 1-2 business days. If needed call our office with any questions at [phone] For clinic and lab appointments call: [phone] or schedule on-line [email or web address] Care Line (after 5 PM, weekends and holidays): [phone] TEST RESULTS: We will communicate your test [...] 5-7 business days, please call our clinic. documented in this encounter Progress Notes * Khadijah Tamayo MD - 09/10/2024 11:00 AM CDT Endocrine Return Patient Note Reason for visit: low testosterone HPI: Koffi Berger is a 34 y.o. old male seen in follow up. [...] as well, decreased activity. He works an [employer] [place] [...] approved but back ordered. Phentermine 10/2022-12/2022 Zepbound 02/2023-08/2024 Wegovy approved 08/2024- currently 2.4 mg 09/2022 BW 440 lb, BMI 56.3 11/2022 BW 437 lb 04/2023 BW 388 lb, BMI 49.82 09/21/2023 BW 358 lb, BMI 47.23 02/09/2024 BW 334 lb, BMI 43.77 08/03/2024 BW 312 lb, BMI 40.88 08/2024 BW 330 lb -- unable to get Zepbound 09/10/2024 BW 314 lb, BMI 41.43 This visit Zepbound is not approved starting August 2024, $1000 co-pay. Wegovy approved but still high co-pay with saving card, $300/month. Will not be able to afford. Gained weight without Zepbound, but able to lose all back since stared on Wegovy. No s/e. Endocrine meds: - Clomid 25 mg daily - Topiramate 125 mg daily - Zepbound 03/2023 -08/2024 - Wegovy 08/2024 - currently 2.4 mg Review of Systems: Please see HPI as well. A 10 pt ROS was completed and negative other than positive for above. Past Medical History reviewed and updated in chart Family History reviewed and updated in chart Social History reviewed and updated in chart Labs: reviewed with patient Component Latest Ref Rng 04/06/2024 HGB A1C <=5.6 % 5.1 Component Latest Ref Rng 07/21/2023 Sex Horm [...] loss to restore his sex hormone again. SHBG has improved a lot from weight loss. - continue clomid 25 mg daily - check testosterone, PSA, Hct in Jan 2025 #Severe obesity C/b HTN, MARTIR, and possible [...] and started in 02/2023 with excellent response. However, insurance changed to Wegovy preferred, he regained weight without Zepbound, but co-pay is high and will not be able to affordit in the future. - Will try Ozempic 2 mg to see if he would get a better coverage - If no insurance coverage for Ozempic, ok to try Wegovy 2.4 mg every 2 weeks - Continue topiramate to 125 mg daily - Weight training exercise 3-4 days/week #Prediabetes - resolved A1c 5.7% 09/2022. LDL 130 which is still acceptable. A1c normalized 5.2% in 04/2023, and 5.1% 03/2024. - Work on weight loss as above. - check a1c and ldl in yearly #Elevated liver enzymes -- resolved #Fatty liver - Continue weight loss as above. Follow up in January 2025 as scheduled This visit was conducted via video. Location of clinician home Location of patient work. Billing based on: Gissell Tamayo MD Endocrinology staff documented in this encounter Nursing Notes * Kanchan Casas LPN - 09/10/2024 11:00 AM CDT semaglutide (OZEMPIC) 8 MG/3ML SOPN injection is denied. Note from payer: Denied. We are not approving your request because: - The requested product is not eligible for coverage because it does not hold an FDA-approved indication for weight loss. This would be considered an off-label use. We realize this may not be the answer you expected. We made this decision based on: - Information from your provider - Your [facility] #&Formulary.Name# Drug List coverage criteria for liraglutide (generic for Victoza), Mounjaro, Ozempic, Rybelsus, and Trulicity Please note: - Products when used for weight loss may be excluded dependent on your plan. Please see your plan document for specific information related to excluded drugs. - When the requested product is used for the FDA- approved indication, the quantity limits for this class are as follows: liraglutide (generic for Victoza) is limited to one injection per day. Mounjaro is limited to one pen per week. Ozempic is limited to one pen per28 days. Rybelsus is limited to one tablet per day. Trulicity is limited to one injection per week. Clinicians, please follow next steps: To Appeal Click Appeal, you may find it under the more button on the toolbar. Enter any relevant information in the ???Note to Payer?? box. Click Accept (will auto submit to payer). To Change Medication Click Encounter on the toolbar. Order the new medication and close out of workspace. Do not discontinue the denied medication. To document decision, go back to your Prior Auth In Basket. Click ???PA (Clinician)?? Quick Action. Select Provider Changed Med option. Enter your site???s appropriate support pool and click ???Send?? . To Change Plan of Care Click Encounter on the toolbar. Update orders and close out of workspace. Do not discontinue the denied medication. To document decision, go back to your Prior Auth In Basket. Click ???PA (Clinician)?? Quick Action. Select ???Change Plan of Care option to document. Enter your site???s appropriate support pool and click ???Send?? . To Pay [id number] To document decision, Click ???PA (Clinician)?? Quick Action. Select Out of Pocket option. Enter your site???s appropriate support pool and click ???Send.?? documented in this encounter Plan of Treatment Upcoming Encounters Date Type Department Care Team (Late st Contact Info) Description 10/18/2024 12:30 PM CDT Appointment [facility] Cancer [facility] [address] [place] [address] Tatyana Crawford MBBS [address] [place] [address] 01/08/2025 1:00 PM NAVY SEAL Telemedicine Digestive Care at [facility] [place] [address] [place] [address] Jenna Simpson, FORMING MILL OPERATOR, JOURNEYMAN PATTERNMAKER [address] [place], [place] [address] 01/14/2025 1:00 PM NAVY SEAL Telemedicine Specialty Center [address] [place] [address]. [place], [place] [phone] Khadijah Tamayo MD [address] [place] [address] documented as of this encounter Visit Diagnoses Diagnosis Hypogonadotropic hypogonadism syndrome, male (HRC)- Primary Other testicular hypofunction Fatty liver (HRC) Other chronic nonalcoholic liver disease Obesity, Class III, BMI 40-49.9 (morbid obesity) Morbid obesity Prediabetes Other abnormal glucose documented in this encounter Care Teams Glue Line Operator Relationship Specialty Start Date End Date Erna Sierra PA-C [address] [place] [address] PCP - General Physician Char House Supervisor 01/10/20 documented as of this encounter
--- OUTSIDE RECORDS SUMMARY | 2024-09-13 08:00 | XMS_ITS | Encounter Summary ---
Author Organization [facility] Address [address], [place] [address] Care Team Providers Care Field Map Technician Name Role Phone Erna Sierra PA-C Primary Care Provider +1- [phone] Reason for Visit * Reason Comments Follow-up, NOS Entered automaticall y based on patient selection in [email or web address]. Encounter Details Date Type Department Care Team (Latest Contact Info) Description 09/13/2024 8:00 AM CDT E-Visit Specialty Center [address] [place] [address]. [place] [address] Khadijah Tamayo MD [address] [place] [address] Dx: Metabolic dysfunction-associated steatohepatitis (MASH) (Primary Dx) Social History Tobacco Use Types [...] of this encounter Nursing Notes * Renetta Narayan, RN - 09/17/2024 2:32 PM CDT Ozempic PA denied. semaglutide (OZEMPIC) 8 MG/3ML SOPN injection is denied. Note from payer: Denied. We are not approving your request because: - The requested product is not eligible for coverage because it does not hold an FDA-approved indication for weight loss. This would be considered an off-label use Please advise on next steps. Renetta Brennan RN 09/17/2024 2:32 PM documented in this encounter Plan of Treatment Upcoming Encounters Date Type Department Care Team (Late st Contact Info) Description 10/18/2024 12:30 PM CDT Appointment [facility] [address] [place] [address] Tatyana Crawford MBBS [address] [place], [place] [address] 01/08/2025 1:00 PM CATERING OPERATIONS MANAGER Telemedicine Digestive Care at [facility] and Specialty [facility] [address] [address] [address] [place] [address] Jenna Simpson, BATCHMAKER, EGG PASTEURIZER [address] [place] [address] 01/14/2025 1:00 PM CATERING OPERATIONS MANAGER Telemedicine Specialty Center [address] [place] [address]. [place] [address] Khadijah Tamayo MD [address] [place], [place] [phone] documented as of this encounter Visit Diagnoses Diagnosis Metabolic dysfunction-associated steatohepatitis (MASH)- Primary documented in this encounter Care Teams Field Map Technician Relationship Specialty Start Date End Date Erna Sierra PA-C [address] [place] [address] PCP - General Physician Acute Care Surgeon 01/10/20 documented as of this encounter
--- OUTSIDE RECORDS SUMMARY | 2024-09-26 12:30 | XMS_ITS | Encounter Summary ---
Author Organization [facility] Address [address] [place] [address] Care Team Providers Care Manufacturing Laborer Name Role Phone Erna Sierra PA-C Primary Care Provider +1- [phone] Encounter Details Date Type Department Care Team (Late st Contact Info) Description 09/26/2024 12:30 PM CDT Lab Visit Laboratory at [address] [address] Leukocytosis, unspecified type (HRC) Social History Tobacco [...] Info) Description 10/18/2024 12:30 PM CDT Appointment [facility] Care at [facility] [address] [place] [address] Tatyana Crawford MBBS [address] [place] [address] 01/08/2025 1:00 PM CHIPPER MACHINE OPERATOR Telemedicine Digestive Care at [facility] and Specialty [facility] [address] [place] [address] [place], [place] [address] Jenna Simpson, BADGER DISTILLER OPERATOR, TECHNOLOGY ARCHITECT [address] [place], [place] [address] 01/14/2025 1:00 PM CHIPPER MACHINE OPERATOR Telemedicine Specialty Center [address] [place] [address]. [place], [place] [phone] Khadijah Tamayo MD [address] [place] [phone] documented as of this encounter Procedures Procedure Name Priority Date/Time Associated Diagnosis Comments BCR/ABL1 MAJOR P210 QUANT Routine 09/26/2024 12:36 PM CDT Leukocytosis, unspecified type (HRC) BCR/ABL1 QUAL WITH REFLEX Routine 09/26/2024 12:36 PM CDT Leukocytosis, unspecified type (HRC) documented in this encounter Results * BCR/ABL1 Major P210 Quant (09/26/2024 12:36 PM CDT) [facility] Quant BCR-ABL1, Major (p210), Source Whole Blood 10/03/2024 4:21 PM CDT [facility] Quant BCR-ABL1, Major (p210), Result High Positive 10/03/2024 4:21 PM CDT [employer] Comment: BCR::ABL1 fusion transcripts (p210 forms) were detected by RT-qPCR but were above the higher limit of quantitation for this assay. A BCR::ABL1 International Scale (IS) cannot be calculated. The result on the IS is greater than 50%. This result has been reviewed and approved by Arjun Castro M.D. INTERPRETIVE INFORMATION: Quantitative Detection of BCR::ABL1, Major Form(p210) This assay quantifies BCR::ABL1 transcripts (e13a2 and e14a2) for ongoing therapeutic monitoring and minimal residual disease detection. BCR::ABL1 translocations with BCR breakpoints in the major breakpoint cluster region result in the p210 fusion protein and are seen in nearly all cases of chronic myelogenous leukemia (CML) and in a few cases of acute lymphoblastic leukemia/lymphoma (ALL). To facilitate the interlaboratory comparison of findings and the assessment of molecular milestones (major molecular response or MMR), results are reported using the international scale (IS; see Kim MC, et al. Leukemia. 2009;23:1263-2068). METHODOLOGY: Total RNA was isolated and converted to cDNA; BCR::ABL1 fusions were quantitated by real-time PCR amplification with primers designed to detect the major (p210) BCR::ABL1 breakpoint, including fusions between BCR exon 13 and ABL1 exon 2 (e13a2) and BCR exon 14 and ABL1 exon 2 (e14a2). Each PCR assay includes a standard curve for BCR::ABL1 and the ABL1 control. The normalized copy number(NCN)is calculated and converted to a value on the international scale (IS) using a validated reference sample (provided by Deandre Obrien MD; see Viola GUTIÉRREZ, et al. Blood. 2010;116:111-117) that was calibrated to a standard set of diagnostic specimens defined during the original trial of tyrosine kinase inhibitor therapy in CML patients (Grupo STARKEY, et al. NEJM. 2003;349:0047-9970). ANALYTICAL SENSITIVITY: Limit of quantification: 0.0032 percent international scale (%IS) LIMITATIONS: This assay does not detect transcripts resulting from a rare BCR::ABL1 rearrangement with a BCR exon 19 breakpoint that results in the p230 fusion protein, and does not detect the minor breakpoint (p190) or rare major fusion transcripts (p210) involving ABL1 other than exon 2. The results of this test must be interpreted in the context of morphologic and other relevant data, and should not be used alone for a diagnosis of malignancy. This test was developed and its performance characteristics determined by [facility]. It has not been cleared or approved by the U.S. Food and Drug Administration. This test was performed in a CLIA-certified laboratory and is intended for clinical purposes. Quant BCR-ABL1, Major (p210), Result See Note 10/03/2024 4:[address] [facility] Quant BCR-ABL1, Major (p210), EER See Note 10/03/2024 4:21 PM CDT [facility] Comment: Authorized individuals can access the [employer] Enhanced Report with an [employer] Connect account using the following link. Your local lab can assist you in obtaining the patient report if you don't have a Connect account. [email or web address] Performed By: [facility] [address] [place] [address] Guest Services Director: Emilio Vidales MD, PhD CLIA Number: [id number] Blood Venipuncture / Unknown 09/26/2024 12:36 PM CDT 09/26/2024 12:36 PM CDT us Erna Sierra PA-C LAB_1 Final Resu lt [facility] [employer] CLIA: [id number] [address] [place] [phone], [facility] * (ABNORMAL) BCR/ABL1 Qual with Reflex (09/26/2024 12:36 PM CDT) BCR Source Whole Blood 10/02/2024 4:45 PM CDT [facility] Diagnostic Qual BCR-ABL1 Assay Result Positive Major(A) 10/02/2024 4:45 PM CDT [facility] Comment: There is evidence of major (p210, e13a2, or e14a2) BCR::ABL1 fusion transcripts by RT-PCR analysis. BCR::ABL1 quantitative testing will be performed. Additional charges will apply. This result has been reviewed and approved by Reina Beck M.D. INTERPRETIVE INFORMATION: Diagnostic Qualitative BCR::ABL1 Assay with Reflex to p190 or p210 Quantitative Assays This assay is designed to detect the presence of BCR::ABL1 translocations with breakpoints in the major breakpoint cluster region (p210 fusion), minor breakpoint cluster region (p190 fusion), or the micro breakpoint cluster region (p230 fusion) for screening purpose at the time of an initial diagnosis. METHODOLOGY: RNA is isolated from whole blood or bone marrow and reverse transcribed. The resulting cDNA is subjected to multiplex PCR amplification with primers designed to amplify p190, p210, or p230 BCR::ABL1 fusion transcripts involving ABL1 exon 2. The ABL1 reference gene is also amplified for specimen quality improvement consultant and to ensure the integrity of RNA. The PCR products are resolved by capillary electrophoresis and evaluated for the presence of amplicons that indicate a positive result. A positive common p210 or p190 result will trigger either quantitative p210 or p190 testing to provide a quantitative level as the diagnostic baseline to monitor treatment response. The p210 transcript level is reported as the percent International Scale (%IS). The p190 transcript level is reported as the normalized copy numbers (NCN%). These quantitative results are integrated into the final report. If the initial qualitative testing is negative, or a rare p230 from is detected, then no reflex testing will be performed. ANALYTICAL SENSITIVITY: Fusion Transcripts Analytical Sensitivity Minor (e1a2) NCN% = 0.004 Major (e13a2) %IS = 0.0040 Major (e14a2) %IS = 0.0047 Micro (e19a2) 1 x 10-5 RNA molecules CLINICAL SENSITIVITY: Estimated to be greater than 99 percent for chronic myelogenous leukemia (CML). LIMITATIONS: Rare BCR::ABL1 fusions with alternative breakpoints (e.g., any fusion transcripts involving ABL1 other than exon 2) are not detected by this test. This qualitative test is designed as a screening test for initial diagnosis of chronic myeloid leukemia (CML) or acute lymphoblastic leukemia/lymphoma (ALL). This test is not intended to monitor therapeutic response or to detect minimal residual disease (MRD). Low-level fusion transcripts indicating MRD might not be detected by inappropriate use of this test. Results of this test must always be interpreted within the clinical context and other relevant data and should not be used alone for a diagnosis of malignancy. This test was developed and its performance characteristics determined by [facility]. It has not been cleared or approved by the U.S. Food and Drug Administration. This test was performed in a CLIA-certified laboratory and is intended for clinical purposes. Performed By: [facility] [address] [place] [address] Guest Services Director: Emilio Vidales MD, PhD CLIA Number: [id number] Blood Venipuncture / Unknown 09/26/2024 12:36 PM CDT 09/26/2024 12:36 PM CDT us Erna Sierra PA-C LAB_1 Final Resu lt [facility] CLIA: [id number] [address] [place] [address] documented in this encounter Visit Diagnoses Diagnosis Leukocytosis, unspecified type (HRC) documented in this encounter Care Teams Manufacturing Laborer Relationship Specialty Start Date End Date Erna Sierra PA-C [address] [place] [address] PCP - General Physician Hr Assistant 01/10/20 documented as of this encounter
--- OUTSIDE RECORDS SUMMARY | 2024-09-29 07:35 | XMS_ITS | Encounter Summary ---
Author Organization [facility] Address [address], [place] [address] Care Team Providers Care Assembler Arranger Name Role Phone Erna Sierra PA-C Primary Care Provider +1- [phone] Reason for Visit * Reason Comments HYPERTENSION Entered automaticall y based on patient selection in [employer]. Encounter Details Date Type Department Care Team (Late st Contact Info) Description 09/29/2024 7:35 AM CDT E-Visit [facility] [address] [place], [place] [phone] Erna Sierra PA-C [address] [place] [place], [place] [address] Chief Comp: HYPERTENSION Social History Tobacco Use Types Packs/Day Years [...] Sign Reading Time Taken Comments Blood Pressure 112/86 10/01/2024 8:40 AM CDT julia ietn reported Pulse - - Temperature - - Respiratory Rate - - Oxygen Saturation - - Inhaled Oxygen Concentration - - Weight - - Height - - Body Mass Index - - documented in this encounter Plan of Treatment Upcoming Encounters Date Type Department Care Team (Late st Contact Info) Description 10/18/2024 12:30 PM CDT Appointment [facility] [address] [place] [address] Tatyana Crawford MBBS [address] [place] [address] 01/08/2025 1:00 PM GYN PHYSICIAN Telemedicine Digestive Care at [facility] and Specialty [facility] [address] [address] [place] [address] Jenna Simpson, CONCRETE STONE FINISHING SUPERVISOR, ANALYSIS MGR [address] [place], [place] [address] 01/14/2025 1:00 PM GYN PHYSICIAN Telemedicine Specialty Center [address] [place] [address]. [place], [place] [phone] Khadijah Tamayo MD [address] [place], [place] [phone] documented as of this encounter Visit Diagnoses Not on filedocumented in this encounter Care Teams Assembler Arranger Relationship Specialty Start Date End Date Erna Sierra PA-C [address] [place] [address] PCP - General Physician Licensed Professional Counselor 01/10/20 documented as of this encounter
--- OUTSIDE RECORDS SUMMARY | 2024-10-03 02:55 | XMS_ITS | Encounter Summary ---
Author Organization [facility]ly [facility], [facility] Address [address], [place] [address] Care Team Providers Care Manager Of Quality Name Role Phone Erna Sierra PA-C Primary Care Provider +1- [phone] Reason for Visit * Reason Comments RESULTS, TEST Entered automaticall y based on patient selection in [employer]. Encounter Details Date Type Department Care Team (Late st Contact Info) Description 10/03/2024 2:55 AM CDT E-Visit [facility] Practice [address] [place], [place] [phone] Erna Sierra PA-C [address] [place], [place] [phone] Chief Comp: RESULTS, TEST Social History Tobacco [...] as of this encounter Nursing Notes * Erna Sierra PA-C - 10/04/2024 10:24 AM CDT Spoke with patient, discussed lab results which are consistent with CML. He has upcoming visit withDr Crawford in oncology on 10/18. I will plan on reaching out to Yvette's team to determine if any further lab testing or imaging would be helpful if ordered prior to that visit. Patient's questions answered to the best of my ability * Erna Sierra PA-C - 10/04/2024 9:12 AM CDT Attempted to call patient by phone, Left message to call back. If no response I will respond to Evisit message but would prefer to discuss by phone * Patricia Gupta MA - 10/03/2024 10:11 AM CDT Courtesy call made to patient x 2. Left message to check MyChart response. Will send E-Visit to PCPto address when next in office on 10/04/24. * Jonah Miguel MD - 10/03/2024 9:45 AM CDT Would recommend this be addressed by pcp tomorrow when she returns Plan in place already for patient to see oncology in about 2 weeks Jonah Miguel MD * Patricia Gupta MA - 10/03/2024 9:31 AM CDT Routing E-Visit requesting results of recent lab from 09/26/24 to [facility] as PCP is out of the office today. Final results for BCR/ABL 1 Qual with Reflex now available. Note that patient is scheduled for a Consult with Hematology on 10/18/24 for Leukocytosis. * Heena Alford - 10/03/2024 7:22 AM CDT Thank you for your message regarding your results. Your care team will review your questions and contact you, please allow up to 5 business days for a response. documented in this encounter Plan of Treatment Upcoming Encounters Date Type Department Care Team (Late st Contact Info) Description 10/18/2024 12:30 PM CDT Appointment [facility] at [address] [address] Tatyana Crawford MBBS [address] [place] [address] 01/08/2025 1:00 PM CUSTODIAL AIDE Telemedicine Digestive Care at [facility] and Specialty [address] [address] [place] [address] Jenna Simpson, ELECTRONIC REPAIR TROUBLESHOOTER, FLOUR WORKER [address] [place] [address] 01/14/2025 1:00 PM CUSTODIAL AIDE [facility] [address] [place] [address]. [place], [place] [phone] Khadijah Tamayo MD [address] [place] [address] documented as of this encounter Visit Diagnoses Not on filedocumented in this encounter Care Teams Manager Of Quality Relationship Specialty Start Date End Date Erna Sierra PA-C [address] [place] [address] PCP - General Physician Sign Board Erector 01/10/20 documented as of this encounter
--- OUTSIDE RECORDS SUMMARY | 2024-10-09 13:40 | XMS_ITS | Encounter Summary ---
Author Organization [facility] Address [address], [place] [address] Care Team Providers Care Saw Straightener Name Role Phone Erna Sierra PA-C Primary Care Provider +1- [phone] Reason for Visit * Reason Comments Ear Pain Right ear Encounter Details Date Type Department Care Team (Late st Contact Info) Description 10/09/2024 1:40 PM CDT Office Visit [facility] Urgent Care [address] [address] Mary Ellen Maher MD [address] [place] [phone] Right acute otitis media (Primary Dx) Social History Tobacco Use Types [...] Sign Reading Time Taken Comments Blood Pressure 121/84 10/09/2024 12:36 PM CDT Pulse 85 10/09/2024 12:36 PM CDT Temperature 36.1 C (97 F) 10/09/2024 12:36 PM CDT Respiratory Rate 18 10/09/2024 12:36 PM CDT Oxygen Saturation 99% 10/09/2024 12:36 PM CDT Inhaled Oxygen Concentration - - Weight - - Height - - Body Mass Index - - documented in this encounter Patient Instructions * Patient Instructions* Mary Ellen Maher MD - 10/09/2024 1:40 PM CDT Right ear infection Antibiotics sent to pharmacy, please come back and see us for persistent symptoms after finishing antibiotics Tylenol 1,000mg every 6 hours as needed for pain * Attachments The following attachments cannot be sent through Care Everywhere. * Otitis Media (Latvian) documented in this encounter Progress Notes * Mary Ellen Maher MD - 10/09/2024 1:40 PM CDT CC: Ear Pain (Right ear) SUBJECTIVE: Patient presents to today due to right sided ear pain. He notes he was recently swimming at [employer] which seems to have precipitated the pain. Patient notes he did do his own ear wash at home last night and got some ear wax out, but the symptoms remain. He notes the pain is roughly a 5/10 on the pain scale. He denies any other URI symptoms at this time. He denies any drainage from the ear. I agree with nursing notes as stated above. In addition: - right ear pain, normal hearing, no ear drainage - ear feels full - no fevers - no cold symptoms OBJECTIVE: Vital Signs: BP 121/84 (BP Location: Left Arm, BP Cuff Size: Large) Pulse 85 Temp 97 ??F (36.1 ??C) (Tympanic) Resp 18 SpO2 99% . Physical Exam Constitutional: Appearance: Normal appearance. HENT: Head: Normocephalic and atraumatic. Left Ear: Tympanic membrane normal. Ears: Comments: Right TM is erythematous, dull, with abnormal light reflex. Normal appearing right ear canal. Left ear canal with mild erythema. No ear pain with exam bilaterally. Mouth/Throat: Mouth: Mucous membranes are moist. Eyes: Extraocular Movements: Extraocular movements intact. Cardiovascular: Rate and Rhythm: Normal rate. Pulmonary: Effort: Pulmonary effort is normal. Neurological: Mental Status: He is alert. ASSESSMENT/PLAN: Koffi Berger is a 34 y.o.male who presents with right AOM. Plan noted below discussed at time of visit. 1. Right acute otitis media - amoxicillin-clavulanate (AUGMENTIN) 875-125 mg per tablet; Take 1 Tablet by mouth two times a dayfor 10 days. Take with food or milk. Dispense: 20 Tablet; Refill: 0 Patient Instructions Right ear infection Antibiotics sent to pharmacy, please come back and see us for persistent symptoms after finishing antibiotics Tylenol 1,000mg every 6 hours as needed for pain Mary Ellen Maher MD 10/09/2024 1:05 PM documented in this encounter Nursing Notes * Arin Reed RN - 10/09/2024 1:40 PM CDT Patient presents to today due to right sided ear pain. He notes he was recently swimming at [employer] which seems to have precipitated the pain. Patient notes he did do his own ear wash at home last night and got some ear wax out, but the symptoms remain. He notes the pain is roughly a 5/10 on the pain scale. He denies any other URI symptoms at this time. He denies any drainage from the ear. documented in this encounter Plan of Treatment Upcoming Encounters Date Type Department Care Team (Late st Contact Info) Description 10/18/2024 12:30 PM CDT [facility]ment [facility] at [facility] [address] [place] [address] Tatyana Crawford MBBS [address] [place] [address] 01/08/2025 1:00 PM OCEAN EXPORT COORDINATOR Telemedicine Digestive Care at [facility] and Specialty [facility] [address] [place] [address] [place] [address] Jenna Simpson, FREEZER UNLOADER, URBAN SOCIOLOGIST [address] [place], [place] [address] 01/14/2025 1:00 PM OCEAN EXPORT COORDINATOR [facility] 401 [facility] 401 [facility] [place], [place] [phone] Khadijah Tamayo MD [address] [place], [place] [phone] documented as of this encounter Visit Diagnoses Diagnosis Right acute otitis media- Primary Unspecified otitis media documented in this encounter Care Teams Saw Straightener Relationship Specialty Start Date End Date Erna Sierra PA-C [address] [place] [address] PCP - General Physician Retail Merchandising Manager 01/10/20 documented as of this encounter
--- OUTSIDE RECORDS SUMMARY | 2024-10-09 19:24 | XMS_ITS | Encounter Summary ---
Author Organization [facility] Address [address] [address] Care Team Providers Care Frame Catcher Name Role Phone Kale Sierra PA-C Primary Care Provider +1- [phone] Reason for Visit * Reason Comments Refill busPIRone (BUSPAR) 5 MG tablet [Pharmacy Med Name: BUSPIRONE HCL 5MG TABS] Encounter Details Date Type Department Care Team (Late st Contact Info) Description 10/04/2024 Refill [facility] Practice [address] [place], [place] [phone] Kale Sierra PA-C [address] [place], [place] [phone] Refill (busPIRone (BUSPAR) 5 MG tablet [Pharmacy Med Name: BUSPIRONE HCL 5MG TABS]) Social History Tobacco Use Types Packs/Day [...] as of this encounter Nursing Notes * Silva Funes RN - 10/05/2024 3:55 PM CDT Refilled per standing order. * Uma Kaurwizacelestina Xrwcomm - 10/04/2024 2:01 AM CDT busPIRone (BUSPAR) 5 MG tablet [Pharmacy Med Name: BUSPIRONE HCL 5MG TABS] Medication started: 11/16/2018 Last ordered by KALE SIERRA: 10/11/2023 (359 days ago) QTY: 180, Refills: 3, Sig: take one tablet by mouth twice a day (unchanged) -> Refill x 12 months, qty: 180, refills: 3 (until due for an office visit) Last qualifying visit: 09/04/2024 (with KALE SIERRA) Next scheduled visit: None Age: 34 [employer] Embedded Refills, Reference: [id number], 10/04/2024 2:01:09 AM CDT, Pool: Refill Centralized Services - Primary Care ([id number]) documented in this encounter Plan of Treatment Upcoming Encounters Date Type Department Care Team (Late st Contact Info) Description 10/18/2024 12:30 PM CDT Appointment [facility] at [facility] [address] [place] [address] Tatyana Crawford, LATOYA [address] [place], [place] [address] 01/08/2025 1:00 PM UNDER GROUND MINER Telemedicine Digestive Care at [facility] and [facility] [address] [place] [address] [place] [address] Jenna Simpson, DESIGN LEAD, TURBINE BLADE ASSEMBLER [address] [place], [place] [address] 01/14/2025 1:00 PM UNDER GROUND MINER [facility] [address] [place] [address]. [place], [place] [phone] Khadijah Tamayo MD [address] [place], [place] [phone] documented as of this encounter Visit Diagnoses Diagnosis Anxiety (HRC) Anxiety state, unspecified documented in this encounter Care Teams Frame Catcher Relationship Specialty Start Date End Date Kale Sierra PA-C [address] [place] [address] PCP - General Physician Call Circuit Worker 01/10/20 documented as of this encounter
--- OUTSIDE RECORDS SUMMARY | 2024-10-09 19:24 | XMS_ITS | Encounter Summary ---
Author Organization [facility] Address [address] [address] Care Team Providers Care Lead C Developer Name Role Phone Erna Sierra PA-C Primary Care Provider +1- [phone] Encounter Details Date Type Department Care Team (Late st Contact Info) Description 10/04/2024 Results Follow-Up [facility] Practice [address] [place] [address] Erna Sierra PA-C [address] [place] [address] Social History Tobacco Use Types Packs/Day Years [...] PM CDT Appointment [facility] at [facility] [address] [place] [address] Tatyana Crawford MBBS [address] [place], [place] [phone] 01/08/2025 1:00 PM AMERICANIZATION TEACHER Telemedicine Digestive Care at [facility] and [facility] [address] [place] [address] [place] [address] Jenna Simpson, CONCRETE LABORER, BATH ATTENDANT [address] [place] [address] 01/14/2025 1:00 PM AMERICANIZATION TEACHER [facility] [address] [place] [address]. [place], [place] [phone] Khadijah Tamayo MD [address] [place], [place] [phone] documented as of this encounter Visit Diagnoses Not on filedocumented in this encounter Care Teams Lead C Developer Relationship Specialty Start Date End Date Erna Sierra PA-C [address] [facility] [place] [address] PCP - General Physician Manager Of Patient 01/10/20 documented as of this encounter
--- OUTSIDE RECORDS SUMMARY | 2024-10-09 19:24 | XMS_ITS | Encounter Summary ---
Author Organization [facility] Address [address], [place] [address] Care Team Providers Care Director Of Rehabilitative Services Name Role Phone Erna Sierra PA-C Primary Care Provider +1- [phone] Encounter Details Date Type Department Care Team (Late st Contact Info) Description 09/10/2024 E-Consult [facility] Cancer Center at [address] [phone] Thomas Iverson MD [address] [place], [place] [phone] Leukocytosis, unspecified type (HRC) (Primary Dx) Social [...] as of this encounter Progress Notes * Thomas Iverson MD - 09/10/2024 3:23 PM CDT I am providing a specialty opinion to referring provider for their use in developing a treatment plan regarding the specific question of patient has a history of mild leukocytosis but now WBC >26and peripheral smear results states bone marrow disorder is in the differential. Are there other tests that should be run besides the inflammatory markers suggested to determine cause of leukocytosis? Should patient be referred to hematology to be seen in person? . Assessment - Leukocytosis with a myeloid predominance and left shift including basophilia is suspicious for chronic myeloid leukemia. As noted in the report of the peripheral blood smear, I recommend checking BCR- ABL qualitative withreflex (peripheral blood smear report has reference) Formal hematology referral is reasonable Total time spent in chart review and documentation: 5 minutes Thomas Iverson MD documented in this encounter Plan of Treatment Upcoming Encounters Date Type Department Care Team (Late st Contact Info) Description 10/18/2024 12:30 PM CDT Appointment [facility] at [facility] [address] [place] [address] Tatyana Crawford MBBS [address] [place], [place] [address] 01/08/2025 1:00 PM RAW SCALES OPERATOR Telemedicine Digestive Care at [facility] and Specialty [facility] [address] [place] [address] [place] [address] Jenna Simpson, AUTOMOBILE TRAVEL CLUB COUNSELOR, GEM SETTER [address] [place], [place] [address] 01/14/2025 1:00 PM RAW SCALES OPERATOR [facility] [address] [place] [address]. [place] [address] Khadijah Tamayo MD [address] [place], [place] [phone] documented as of this encounter Visit Diagnoses Diagnosis Leukocytosis, unspecified type (HRC)- Primary documented in this encounter Care Teams Director Of Rehabilitative Services Relationship Specialty Start Date End Date Erna Sierra PA-C [address] [place] [address] PCP - General Physician Chlorine Cell Tender 01/10/20 documented as of this encounter
--- OUTSIDE RECORDS SUMMARY | 2024-10-09 19:24 | XMS_ITS | Encounter Summary ---
Author Organization [facility] Address [address], [place] [address] Care Team Providers Care Automatic Pilot Mechanic Name Role Phone Erna Sierra PA-C Primary Care Provider +1- [phone] Encounter Details Date Type Department Care Team (Latest Contact Info) Description 09/02/2017 Correspondence [facility] [address] [place] [address] Ngozi Contreras MD [facility] [place] [address] [facility] PT AUTH TO VIEW THE [facility] CHART Social History Tobacco Use Types Packs/Day [...] Industry Job Start Date Job End Date [employer] Not on file Not on file Not on file documented as of this encounter Plan of Treatment Upcoming Encounters Date Type Department Care Team (Late st Contact Info) Description 10/18/2024 12:30 PM CDT Appointment [facility] Cancer Care at [facility] [address] [place] [address] Tatyana Crawford MBBS [address] [place] [address] 01/08/2025 1:00 PM COMMUNITY RELATIONS REP Telemedicine Digestive Care at [facility] and Specialty [facility] [address] [facility] [address] [place] [address] Jenna Simpson, FIELD PARTY MANAGER, QA TEST LEAD [address] [place] [address] 01/14/2025 1:00 PM COMMUNITY RELATIONS REP Telemedicine Specialty Center [address] [place] [address]. [place] [address] Khadijah Tamayo MD [address] [place] [phone] documented as of this encounter Visit Diagnoses Not on filedocumented in this encounter Additional Health Concerns Infection Onset Date Last Indicated Resolved Time R/O COVID19 11/26/2019 11/26/2019 11/27/2019 6:46 AM CDT R/O COVID19 02/19/2021 02/19/2021 02/20/2021 2:03 AM COMMUNITY RELATIONS REP R/O COVID19 04/21/2021 04/21/2021 04/21/2021 8:52 PM CDT R/O COVID19 04/23/2021 04/23/2021 04/23/2021 6:52 PM CDT R/O COVID19 04/27/2021 04/27/2021 04/27/2021 6:03 PM CDT R/O COVID19 06/08/2021 06/08/2021 06/09/2021 12:3 5 AM CDT R/O COVID19 06/23/2021 06/23/2021 06/23/2021 8:31 PM CDT COVID19 06/23/2021 06/23/2021 07/04/2021 3:17 AM CDT R/O COVID19 03/01/2022 03/01/2022 03/01/2022 4:19 PM COMMUNITY RELATIONS REP documented as of this encounter Care Teams Automatic Pilot Mechanic Relationship Specialty Start Date End Date Erna Sierra PA-C [address] [place] [address] PCP - General Physician Vp Compliance 01/10/20 documented as of this encounter
--- OUTSIDE RECORDS SUMMARY | 2024-10-09 19:24 | XMS_ITS | Clinical Summary ---
Author Organization [facility] Address [address], [place] [address] Care Team Providers Care Nail Machine Operator Name Role Phone Erna Sierra PA-C Primary Care Provider [phone] Source Comments You are receiving this document as you are listed as the primary care provider,follow-up provider, or the patient has been referred to you for consultation.This is in compliance with the Medicare and[facility] EHR Incentive Program,which states Providers who transition their patient to another setting of careor provider of care or refers their patient to another provider of care shouldprovide summary care record for each transition of care or referral. [facility] Active Allergy Reactions Criticality Noted Date Comments Flag Pond Oil Gastrointestinal High 06/06/2018 Lisinopril Other, see comments Low 02/02/2018 Abdominal pain Sertraline Other, see comments 04/19/2013 PN: insomnia Insomnia PN: insomnia Medications Dicyclomine HCl (BENTYL OR) Take 1 Tab by mouth as needed. Active econazole nitrate (SPECTAZOLE) 1 % creamIndication s:Tinea Pedis Apply to affected area daily Indications: Athlete's Foot 30 g 5 08/15/ 020 Active hyoscyamine (LEVSIN/SL) 0.125 MG sublingual tabletIndicatio ns:Lower abdominal pain,Nocturnal diarrhea Take 1-2 Tablets by mouth every 4 hours as needed. 40 Tablet 3 020 Active acetaminophen (TYLENOL) 325 MG tablet Take 2 Tablets (650 mg) by mouth every 6 hours as needed for Pain. Active multivitamin (THERAGRAN) tablet Take 1 Tablet by mouth daily. Active miconazole (DESENEX) 2 % powder Apply topically twice daily to underside of abdomen 45 g 3 023 Active ondansetron (ZOFRAN) 4 MG tabletIndicatio ns:Nausea Take 1 Tablet (4 mg) by mouth every 8 hours as needed. 30 Tablet 1 023 Active rivaroxaban (XARELTO) 20 MG tablet Take 1 Tablet (20 mg) by mouth daily. 024 Active sildenafil (REVATIO) 20 MG tabletIndicatio ns:Erectile dysfunction, unspecified erectile dysfunction type Take 1 Tablet (20 mg) by mouth every 24 hours as needed. 30 Tablet 024 Active fluconazole (DIFLUCAN) 200 MG tabletIndicatio ns:Intertrigo,T inea corporis Take 1 Tablet (200 mg) by mouth once a week. For 4 weeks 4 Tablet 1 025 Active nystatin (MYCOSTATIN) 753712 UNIT/GM powderIndicatio ns:Intertrigo Apply topically two times a day. 60 g 1 025 Active ketoconazole (NIZORAL) 2 % creamIndication s:Tinea Corporis,Tinea Cruris Apply topically daily. Indications: Ringworm of Groin Area, Ringworm of the Body 60 g 1 025 Active clomiPHENE (CLOMID) 50 MG tabletIndicatio ns:Low testosterone Take 0.5 Tablets (25 mg) by mouth daily. 45 Tablet 3 025 Active escitalopram (LEXAPRO) 10 MG tabletIndicatio ns:Anxiety (HRC) TAKE ONE TABLET BY MOUTH EVERY DAY 90 Tablet 2 025 Active Additional Information Patient taking differently: 5 mgOral DAILY, Reported on 10/09/2024 triamterene-hyd rochlorothiazid e (MAXZIDE-25) 37.5-25 MG tabletIndicatio ns:Essential hypertension (HRC) TAKE ONE TABLET BY MOUTH EVERY DAY 90 Tablet 3 025 Active omeprazole (PRILOSEC) 40 MG capsule TAKE ONE CAPSULE BY MOUTH EVERY DAY 90 Capsule 2 025 Active topiramate (TOPAMAX) 50 MG tabletIndicatio ns:Morbid obesity (HRC) Take 2.5 Tablets (125 mg) by mouth daily. 225 Tablet 3 025 Active semaglutide-cristhian ght management (WEGOVY) 2.4 MG/0.75ML pen injection Inject 0.75 mL (2.4 mg) subcutaneously once a week. 11.25 mL 1 025 2024 Active metoprolol succinate (TOPROL XL) 50 MG 24 hour release tabletIndicatio ns:Essential hypertension (HRC) Take 1 Tablet (50 mg) by mouth daily. 30 Tablet 11 025 2025 Active semaglutide (OZEMPIC) 8 MG/3ML SOPN injection Inject 2 mg subcutaneously once a week. 3 mL 11 025 Active busPIRone (BUSPAR) 5 MG tabletIndicatio ns:Anxiety (HRC) TAKE ONE TABLET BY MOUTH TWICE A DAY 180 Tablet 3 025 Active amoxicillin-cla vulanate (AUGMENTIN) 875-125 mg per tabletIndicatio ns:Right acute otitis media Take 1 Tablet by mouth two times a day for 10 days. Take with food or milk. 20 Tablet 025 2024 Active insulin pen needle (BD ULTRAFINE ANTONIO 2ND GEN) 32G X 4 MMIndications:M orbid obesity (HRC) Use to inject Saxenda as instructed. 100 Each 3 023 2024 Discontinued busPIRone (BUSPAR) 5 MG tabletIndicatio ns:Anxiety (HRC) take one tablet by mouth twice a day 180 Tablet 3 024 2024 Discontinued Active Problems Patient Care Coordination No te Formatting of this note migh t be different from the original. HP CCA Care Management HP Disease and Case Management: Koffi Berger identified due to pre-diabetes. Working with patient for education,resources,and any other health goals. My role is to be available to provide in-between visit support, reinforcement of the plan of care, additional education and resources, and assistance navigating health plan benefits. Briana Roca RN 06/30/2023, 4:28 PM Problem Noted Date Diagnosed Date Metabolic dysfunction-associated steatohepatitis (MASH) 09/19/2024 Bilateral pulmonary embolism 08/17/2022 Hypogonadotropic hypogonadism syndrome, [...] Overview (01/24/2019): Setting: APAP 5-15 Supplied by: [facility] PSG done: 03/25/15 HST AHI 12 (eds) [...] Encounters Date Type Department Care Team Description 10/09/2024 1:40 PM CDT Office Visit [facility] [place] [id number] [place] [phone] Mary Ellen Maher MD Right acute otitis media (Primary Dx) 10/04/2024 Results Follow-Up [facility] [address] [place] [address] Erna Sierra PA-C 10/04/2024 Refill [facility] [address] [place] [address] Erna Sierra PA-C Refill (busPIRone (BUSPAR) 5 MG tablet [Pharmacy Med Name: BUSPIRONE HCL 5MG TABS]) 10/03/2024 2:55 AM CDT E-Visit [facility] [address] [place] [address] Erna Sierra PA-C Chief Comp: RESULTS, TEST 09/29/2024 7:35 AM CDT E-Visit [address] [address] Erna Sierra PA-C Chief Comp: HYPERTENSION 09/26/2024 12:30 PM CDT Lab Visit Laboratory at [address] [phone] Leukocytosis, unspecified type (HRC) 09/13/2024 8:00 AM CDT E-Visit [facility] [address] [place] [address] Khadijah Tamayo MD Dx: Metabolic dysfunction-associated steatohepatitis (MASH) (Primary Dx) 09/10/2024 11:00 AM CDT Telemedicine [facility] [address] [place] [address] Khadijah Tamayo MD Hypogonadotropic hypogonadism syndrome, male (HRC) (Primary Dx); Fatty liver (HRC); Obesity, Class III, BMI 40-49.9 (morbid obesity); Prediabetes 09/10/2024 E-Consult [facility] at [address] [address] Thomas Iverson MD Leukocytosis, unspecified type (HRC) (Primary Dx) 09/07/2024 12:00 PM CDT E-Visit [facility] [address] [place] [address] Erna Sierra PA-C Chief Comp: RESULTS, TEST 09/07/2024 Results Follow-Up [address] [place] [address] Erna Sierra PA-C 09/06/2024 11:50 AM CDT Lab Visit [facility] [address] [place] [address] SULY Valderrama [id number] Leukocytosis, unspecified type (HRC) 09/05/2024 6:55 AM CDT E-Visit [address] [address] Erna Sierra PA-C Dx: Leukocytosis, unspecified type (HRC) (Primary Dx) 09/04/2024 1:40 PM CDT Lab Visit [place] [facility] [address] [place] [address] Lightheadedness; Leukocytosis, unspecified type (HRC) 09/04/2024 1:20 PM CDT Office Visit [address] [address] Erna Sierra PA-C Lightheadedness (Primary Dx); Essential hypertension (HRC); Obesity, Class III, BMI 40-49.9 (morbid obesity); Leukocytosis, unspecified type (HRC) 09/04/2024 Results Follow-Up [address] [address] Erna Sierra PA-C 08/23/2024 8:20 AM CDT E-Visit [address] [address] Erna Sierra PA-C Chief Comp: Medication Questions 08/15/2024 1:00 PM CDT E-Visit [facility] [address] [facility] [address] [place] [address]. S[place] Son [address] Khadijah Tamayo MD Chief Comp: Follow-up, NOS 08/13/2024 11:30 AM CDT E-Visit [facility] [address] [facility] [address] [place] [address]. [place] Son [address] Khadijah Tamayo MD Chief Comp: Medication Questions 08/09/2024 10:40 AM CDT E-Visit [facility] [place] [address] [address] [address] [place] [address] Jenna Simpson, ADVERTISING ASSISTANT, OUTSOLE CUTTER MACHINE Chief Comp: Forms/Letter 08/03/2024 1:00 PM CDT Telemedicine Specialty [place] [address] [facility] [address] [place] [address] Khadijah Tamayo MD Hypogonadotropic hypogonadism syndrome, male (HRC) (Primary Dx); Morbid obesity (HRC); Low testosterone; Fatty liver (HRC); Prediabetes; Obesity, Class III, BMI 40-49.9 (morbid obesity) 07/31/2024 E-Visit [place] [address] [facility] [address] [place] [address] Mychart, Generic Provider 07/21/2024 2:35 AM CDT E-Visit [address] [address] Amalia Sanchez PA-C Chief Comp: Forms/Letter 2024 8:20 AM CDT Office Visit [address] [address] Amalia Sanchez PA-C Impacted cerumen of left ear (Primary Dx); Acute swimmer's ear of both sides; Acute otitis media, bilateral from Last 3 Months Immunizations Immunization Administration Dates Next Due Flu Vac (3+ yrs) 11/12/2013,10/30/2008 Flu Vac Preserv Free (3+yrs) 11/04/2016,10/27/19 16,12/07/2011 Fluvirin Vaccine 11/12/2013 Influenza (Flucelvax), Prese rv Free QIV 11/06/2022,11/09/2021,12/14/2020 Influenza IIV4 (Quadrivalent ) 0.5mL (01865) 12/07/2019,11/10/2018,11/02/2017 Influenza ccIIV3 6 months+ (Flucelvax) 02/09/2024 Influenza, Unspecified Formulation 11/26/2014 Moderna Bivalent 12+ 11/09/2021 Pfizer Monovalent 12+ Purple Top 12/14/2020,02/08,02/07/2020 TB Skin Test (PPD) 08/02/2014, 4,07/13/2013,2012,03/22/2012,03/15/2012 Tdap 2024,08/02/2014 Varicella 10/12/2018,05/01/2012 Family History Medical History Relation [...] Answered Alcohol Use Standard Drinks/Week Comments Yes 3 [...] file Not on file Not on file Last Filed Vital Signs Vital Sign Reading Time Taken Comments Blood Pressure 121/84 10/09/2024 12:36 PM CDT Pulse 85 10/09/2024 12:36 PM CDT Temperature 36.1 C (97 F) 10/09/2024 12:36 PM CDT Respiratory Rate 18 10/09/2024 12:36 PM CDT Oxygen Saturation 99% 10/09/2024 12:36 PM CDT Inhaled Oxygen Concentration - - Weight 142.4 kg (314 lb) 09/10/2024 11:03 AM CDT Height 185.4 cm (6' 1) 09/04/2024 12:59 PM CDT Body Mass Index 41.43 09/04/2024 12:59 PM CDT Plan of Treatment Upcoming Encounters Date Type Department Care Team (Late st Contact Info) Description 10/18/2024 12:30 PM CDT Appointment [facility] [address] [place] [address] Tatyana Crawford MBBS [address] [place], [place] [phone] 01/08/2025 1:00 PM TELEMETRY NURSE Telemedicine [facility] and Specialty [facility] [address] [address] [address] [place] [address] Jenna Simpson, ADVERTISING ASSISTANT, OUTSOLE CUTTER MACHINE [address] [place], [place] [address] 01/14/2025 1:00 PM TELEMETRY NURSE Telemedicine [facility] [address] [facility] [address] [place] [address]. [place], [place] [phone] Khadijah Tamayo MD [address] [place], [place] [phone] Health Maintenance Due Date Last Done Comments HepB Vaccine (1) 2009 HPV Vaccine (1 - 3-dose SCDM series) 2017 COVID-19 Vaccine ( season) 2024 11/09/2021, 12/14/2020, 02/28/2020, Additional history exists Influenza Vaccine (#1) 2024 , 11/06/2022, 11/09/2021, Additional history exists Prediabetes: HGBA1C 04/06/2025 04/06/2024, 04/12/2023, 09/10/2022, Additional history exists Adult Preventive Visit 04/06/2026 , 06/03/2020, 12/21/2017 Colonoscopy 03/30/2031 03/30/2024, 04/27/2016 DTaP/Tdap/Td Vaccine (4 - Tdap) 2034 2024, 08/02/2014, 09/24/2013 (Completed) Zoster/Shingles Vaccine (1 of 2) 2040 HIV Screening (Preventive Services) Completed 12/21/2017 Hep C Screening (Preventive Services) Completed 04/15/2023 HepA Vaccine Aged Out No longer eligi ble based on patient's age to complete this topic Hib Vaccine Aged Out No longer eligi ble based on patient's age to complete this topic IPV (Polio) Vaccine Aged Out No longe r eligible based on patient's age to complete this topic MCV4 Vaccine Aged Out No longer eligi ble based on patient's age to complete this topic Meningococcal B Vaccine Aged Out No l onger eligible based on patient's age to complete this topic Pneumococcal Vaccine Aged Out No long er eligible based on patient's age to complete this topic Procedures Procedure Name Priority Date/Time Associated Diagnosis Comments BCR/ABL1 MAJOR P210 QUANT Routine 09/26/2024 12:36 PM CDT Leukocytosis, unspecified type (HRC) BCR/ABL1 QUAL WITH REFLEX Routine 09/26/2024 12:36 PM CDT Leukocytosis, unspecified type (HRC) C-REACTIVE PROTEIN Routine 09/06/2024 11 :39 AM CDT Leukocytosis, unspecified type (HRC) DIFFERENTIAL Routine 09/06/2024 11:39 AM CDT Leukocytosis, unspecified type (HRC) CBC WITH DIFFERENTIAL REVIEW Routine 09/06/2024 11:39 AM CDT Leukocytosis, unspecified type (HRC) BASIC METABOLIC PANEL Routine 09/06/2024 11:39 AM CDT Leukocytosis, unspecified type (HRC) PERIPHERAL SMEAR MORPHOLOGY Routine 09/06/2024 11:39 AM CDT Leukocytosis, unspecified type (HRC) RETIC, AUTOMATED Routine 09/06/2024 11:3 9 AM CDT Leukocytosis, unspecified type (HRC) PATH REVIEW (LAB USE ONLY) Routine 09/04/2024 1:50 PM CDT Leukocytosis, unspecified type (HRC) DIFFERENTIAL Routine 09/04/2024 1:50 PM CDT Leukocytosis, unspecified type (HRC) CBC WITH DIFFERENTIAL REVIEW Routine 09/04/2024 1:50 PM CDT Leukocytosis, unspecified type (HRC) RBC AND PLATELET MORPHOLOGY Routine 09/04/2024 1:50 PM CDT Lightheadedness COMPLETE BLOOD COUNT-NO DIFF Routine 09/04/2024 1:50 PM CDT Lightheadedness TSH, SENSITIVE (WITH REFLEX) Routine 09/04/2024 1:50 PM CDT Lightheadedness BASIC METABOLIC PANEL Routine 09/04/2024 1:50 PM CDT Lightheadedness HGB A1C Routine 04/06/2024 1:47 PM TELEMETRY NURSE Screening for diabetes mellitus COLONOSCOPY SCREENING Routine 03/30/2024 12:16 PM TELEMETRY NURSE Polyp of colon, unspecified part of colon, unspecified type HEPATITIS C ANTIBODY, WITH REFLEX (ANTI-HCV) Routine 04/15/2023 4:25 PM TELEMETRY NURSE Elevated liver enzymes HIV 1/2 AG/AB 4TH GEN Routine 12/21/2017 3:02 PM TELEMETRY NURSE Screening for HIV (human immunodeficiency virus) from Last 3 Months or Most Recently Relevant to Health Maintenance Results * BCR/ABL1 Major P210 Quant (09/26/2024 12:36 PM CDT) Pathologist [facility] Quant BCR-ABL1, Major (p210), Source Whole Blood 10/03/2024 4:21 PM CDT [facility] [employer] Quant BCR-ABL1, Major (p210), Result High Positive 10/03/2024 4:21 PM [facility] [employer] Comment: BCR::ABL1 fusion transcripts (p210 forms) were [...] (IS; see Kim MC, et al. Leukemia. 2009;23:2671-2686). METHODOLOGY: Total RNA was isolated and converted [...] (provided by Deandre Obrien MD; see Viola GUTIÉRREZ et al. Blood. 2010;116:111-117) that was calibrated to a standard set of diagnostic specimens defined during the original trial of tyrosine kinase inhibitor therapy in CML patients (Grupo STARKEY, et al. NEJ. 2003;349:9123-3108). ANALYTICAL SENSITIVITY: Limit of quantification: 0.0032 percent [...] developed and its performance characteristics determined by [facility]. It has not been cleared or approved by the U.S. Food and Drug Administration. This test was performed in a CLIA-certified laboratory and is intended for clinical purposes. Quant BCR-ABL1, Major (p210), Result See Note 10/03/2024 4:21 PM CDT [facility] Quant BCR-ABL1, Major (p210), EER See Note 10/03/2024 4:21 PM CDT [facility] Comment: Authorized individuals can access the [employer] Enhanced Report with an [employer] Connect account using the following link. Your local lab can assist you in obtaining the patient report if you don't have a Connect account. [email or web address] Performed By: [facility] [address] [place] [address] Vp Integration: Emilio Vidales MD, PhD CLIA Number: [id number] Blood Venipuncture / Unknown 09/26/2024 12:36 PM CDT 09/26/2024 12:36 PM CDT Erna Sierra PA-C LAB_1 Final Resu lt [employer] CLIA: [id number] [address] [place] [address], [place] * (ABNORMAL) BCR/ABL1 Qual with Reflex (09/26/2024 12:36 PM CDT) BCR Source Whole Blood 10/02/2024 4:45 PM CDT [facility] Diagnostic Qual BCR-ABL1 Assay Result Positive Major(A) 10/02/2024 4:45 PM CDT [facility] Comment: There is evidence of major (p210, [...] gene is also amplified for specimen quality nurse and to ensure the integrity of RNA. [...] developed and its performance characteristics determined by [facility]. It has not been cleared or approved by the U.S. Food and Drug Administration. This test was performed in a CLIA-certified laboratory and is intended for clinical purposes. Performed By: [facility] [address] [place] [address] Vp Integration: Emilio Vidales MD, PhD CLIA Number: [id number] Blood Venipuncture / Unknown 09/26/2024 12:36 PM CDT 09/26/2024 12:36 PM CDT us Erna Sierra PA-C LAB_1 Final Resu lt [facility] CLIA: [id number] [address] [place] [id number], [facility] * Peripheral Smear Morphology (09/06/2024 11:39 AM CDT) Case Report Peripheral Smear Case: [id number] Authorizing Provider: Erna Sierra PA-C Collected: 09/06/2024 1139 Ordering Location: [facility] Received: 09/06/2024 1139 Practice Pathologist: Felicia Denny MD Specimen: Blood, Venous 09/07/2024 11:41 AM [facility] FINAL DIAGNOSIS Peripheral blood, morphology: Leukocytosis [...] (qualitative with reflex to quantitative, miscellaneous test, [employer] test code 7982233) could also be considered to evaluate for chronic myeloid leukemia. 09/07/2024 11:41 AM [facility] at 1141 CDT Clinical Information Worsening lymphocytosis unexplained etiology 09/07/2024 11:41 AM [facility] Microscopic Description Last CBC w/differential result: [...] number, morphology, and granularity. 09/07/2024 11:41 AM [facility] Embedded Images 09/07/2024 11:41 AM [facility] Blood VENOUS BLOOD SPECIMEN / Unknown Venipuncture / Unknown 09/06/2024 11:39 AM CDT 09/06/2024 11:39 AM CDT us Erna Sierra PA-C LAB PATHOLOGY Final Resu lt [address] [address], [facility] * (ABNORMAL) CBC with Differential Review (09/06/2024 11:39 AM CDT) Only the most recent of2 resultswithin the time period is included. Hematology Review 09/06/2024 7:38 PM [facility] WBC 26.6(H) 3.5 - 10.5 x10(9)/L 09/06/2024 7:38 PM [facility] RBC 4.86 4.32 - 5.72 x10(12)/L 09/06/2024 7:38 PM [facility] Hemoglobin 14.6 13.5 - 17.5 g/dL 09/06/2024 7:38 PM [facility] HCT 44.0 38.8 - 50.0 % 09/06/2024 7:38 PM [facility] MCV 90.5 80.0 - 100.0 fL 09/06/2024 7:38 PM [facility] MCH 30.0 27.6 - 33.3 pg 09/06/2024 7:38 PM [facility] MCHC 33.2 31.5 - 35.2 g/dL 09/06/2024 7:38 PM [facility] RDW 14.8 11.9 - 15.5 % 09/06/2024 7:38 PM [facility] Platelets 202 150 - 450 x10(9)/L 09/06/2024 7:38 PM [facility] Automated NRBC 0 <=0 /100 WBC 09/06/2024 7:38 PM [facility] Blood Venipuncture / Unknown 09/06/2024 11:39 AM CDT 09/06/2024 11:47 AM CDT us Erna Sierra PA-C LAB_1 Final Resu lt Performing Organization Address City/State/[facility] Co de Phone Number [id number] [place] [address] * BMP (09/06/2024 11:39 AM CDT) Only the most recent of2 resultswithin the time period is included. Sodium 138 136 - 145 mmol/L 09/06/2024 3:44 PM CDT [facility] Potassium 3.5 3.5 - 5.1 mmol/L 09/06/2024 3:44 PM CDT [facility] Chloride 104 98 - 109 mmol/L 09/06/2024 3:44 PM [facility] CO2 25 20 - 29 mmol/L 09/06/2024 3:44 PM T [facility] Anion Gap 9 6 - 16 mmol/L 09/06/2024 3:44 PM T [facility] Calcium 8.9 8.4 - 10.4 mg/dL 09/06/2024 3:44 PM T [facility] BUN 22 7 - 26 mg/dL 09/06/2024 3:44 PM T [facility] Creatinine 1.18 0.73 - 1.18 mg/dL 09/06/2024 3:44 PM T [facility] Glucose 77 70 - 100 mg/dL 09/06/2024 3:44 PM [facility] Comment:The given reference range is for the fasting state. Non-fasting reference range for glucose is 70 - 180 mg/dL. GFR, Estimated >60 >60 mL/min/1. 73m2 09/06/2024 3:44 PM [facility] Hours Fasting 1.0 8 - 12 Hours 09/06/2024 3:44 PM T [facility] () Blood Venipuncture / Unknown 09/06/2024 11:39 AM CDT 09/06/2024 11:39 AM CDT us Erna Sierra PA-C LAB_1 Final Resu lt [facility] [address] [address], [facility] () [address] [place] [address], [facility] * (ABNORMAL) Differential (09/06/2024 11:39 AM CDT) Only the most recent of2 resultswithin the time period is included. Large Platelets Present(A) Absent 7:38 PM [facility] RBC Morphology Reviewed 09/06/2024 7:38 PM [facility] Platelet Estimate Adequate Adequate 025 7:38 PM [facility] Myelocyte Absolute 0.3(H) <=0.0 10(9)/L 09/06/2024 7:38 PM CDT [facility] Metamyelocyte Absolute 1.3(H) <=0.0 10(9)/L 09/06/2024 7:38 PM T [facility] Neutrophil Absolute 15.2(H) 1.7 - 7.0 10(9)/L 09/06/2024 7:38 PM [facility] Lymphocyte Absolute 5.9(H) 1.0 - 4.8 10(9)/L 09/06/2024 7:38 PM T [facility] Monocyte Absolute 1.3(H) 0.2 - 0.9 10(9)/L 09/06/2024 7:38 PM T [facility] Eosinophil Absolute 1.3(H) 0.0 - 0.5 10(9)/L 09/06/2024 7:38 PM T [facility] Basophil Absolute 1.3(H) 0.0 - 0.3 10(9)/L 09/06/2024 7:38 PM T [facility] Blood Venipuncture / Unknown 09/06/2024 11:39 AM CDT 09/06/2024 11:47 AM CDT Erna Sierra PA-C LAB_1 Final Resu lt Performing Organization Address [facility] de Phone Number [address] * Reticulocyte Count, Automated (09/06/2024 11:39 AM CDT) Retic % 2.10 0.77 - 2.36 % 09/06/2024 5:13 PM CDT [facility] Retic Absolute 0.105 0.038 - 0.113 x10(6)/uL 09/06/2024 5:13 PM CDT [facility] Blood Venipuncture / Unknown 09/06/2024 11:39 AM CDT 09/06/2024 11:39 AM CDT Erna Sierra PA-C LAB_1 Final Resu lt Performing Organization Address [facility]/[place] [address], [facility] * C-Reactive Protein (09/06/2024 11:39 AM CDT) C-Reactive Protein 0.4 0.0 - 0.5 mg/dL 09/10/2024 2:16 PM CDT [facility] Blood Venipuncture / Unknown 09/06/2024 11:39 AM CDT 09/06/2024 11:39 AM CDT Erna Sierra PA-C LAB_1 Final Resu lt Performing Organization Address City/[facility]/ZIP Co de Phone Number [facility] [address] * Morphology-RBC and Platelet (09/04/2024 1:50 PM CDT) RBC Morphology Reviewed 09/04/2024 3:38 PM CDT [facility] Platelet Estimate Adequate Adequate 09/04/2024 3:38 PM CDT [facility] Blood Venipuncture / Unknown 09/04/2024 1:50 PM CDT 09/04/2024 1:50 PM CDT Erna Sierra PA-C LAB_1 Final Resu lt Performing Organization Address [facility] Co de Phone Number [facility] [address] [place] [address] * Blood Smear Review (Internal QC Check) (09/04/2024 1:50 PM CDT) Path Review Slide review done internally for quality assurance tech purposes 09/05/2024 1:53 PM CDT [facility] Blood Venipuncture / Unknown 09/04/2024 1:50 PM CDT 09/05/2024 8:10 AM CDT Erna Sierra PA-C LAB_1 Final Resu lt Performing Organization Address City/[facility] [facility]/ZIP Co de Phone Number [facility] [address] [place] [address], [facility] * (ABNORMAL) Complete Blood Count-No Diff (09/04/2024 1:50 PM CDT) WBC 28.5(H) 3.5 - 10.5 x10(9)/L 09/04/2024 3:38 PM CDT [facility] RBC 5.13 4.32 - 5.72 x10(12)/L 09/04/2024 3:38 PM CDT [facility] Hemoglobin 15.4 13.5 - 17.5 g/dL 09/04/2024 3:38 PM CDT [facility] HCT 46.5 38.8 - 50.0 % 09/04/2024 3:38 PM CDT [facility] MCV 90.6 80.0 - 100.0 fL 09/04/2024 3:38 PM CDT [facility] MCH 30.0 27.6 - 33.3 pg 09/04/2024 3:38 PM CDT [facility] MCHC 33.1 31.5 - 35.2 g/dL 09/04/2024 3:38 PM CDT [facility] RDW 14.3 11.9 - 15.5 % 09/04/2024 3:38 PM CDT [facility] Platelets 227 150 - 450 x10(9)/L 09/04/2024 3:38 PM CDT [facility] Blood Venipuncture / Unknown 09/04/2024 1:50 PM CDT 09/04/2024 1:50 PM CDT Erna Sierra PA-C LAB_1 Final Resu lt [facility] [address] [place] [address] * TSH with reflex to fT4 (not for treatment monitoring) (09/04/2024 1:50 PM CDT) TSH, Reflex 1.45 0.30 - 4.50 uIU/mL 09/04/2024 7:12 PM CDT [facility] Blood Venipuncture / Unknown 09/04/2024 1:50 PM CDT 09/04/2024 1:50 PM CDT Erna Sierra PA-C LAB_1 Final Resu Performing Organization Address [facility] de Phone Number [facility] [address] * Hgb A1C (04/06/2024 1:47 PM TELEMETRY NURSE) Hemoglobin A1C 5.1 <=5.6 % 04/06/2024 8:22 PM TELEMETRY NURSE [facility] Estimated Average Glucose (Calc) 100 < 117 mg/dL 04/06/2024 8:22 PM [facility] Comment:Estimated average gl ucose (eAG) converts A1c into glucose units (mg/dL) and estimates average glucose over the past approximately 3 months. The eAG reference interval (<117 mg/dL) corresponds to an A1c of <5.7%. Blood Venipuncture / Unknown 04/06/2024 1:47 PM TELEMETRY NURSE 04/06/2024 1:47 PM TELEMETRY NURSE Erna Sierra PA-C LAB_1 Final Resu Performing Organization Address [facility] de Phone Number [facility] [address] * Colonoscopy Screening (03/30/2024 12:16 PM TELEMETRY NURSE) Anatomical Region Laterality Modality Other 03/30/2024 12:1 6 PM TELEMETRY NURSE Narrative 03/30/2024 12:16 PM TELEMETRY NURSE Patient Name: Koffi Berger Procedure Date: 03/30/2024 12:16 PM Date of : 1990 Admit Type: Outpatient Age: 33 Gender: Male Note Status: Finalized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
--- OUTSIDE RECORDS SUMMARY | 2024-10-09 19:24 | XMS_ITS | Encounter Summary ---
Author Organization [facility] Address [address], [place] [address] Care Team Providers Care Twill Cutter Name Role Phone Erna Sierra PA-C Primary Care Provider +1- [phone] Encounter Details Date Type Department Care Team (Latest Contact Info) Description 09/02/2017 Correspondence [facility] [address] [place] [address] Ngozi Contreras MD [facility] [address] MAINTENANCE OF WAKEFULNESS TEST Social [...] Info) Description 10/18/2024 12:30 PM CDT Appointment [facility] at [facility] [address] [place] [address] Tatyana Crawford MBBS [address] [place] [address] 01/08/2025 1:00 PM LABORATORY MECHANIC HELPER Telemedicine Digestive Care at [facility] and Specialty [facility] [address] [facility] [address] [place] [address] Jenna Simpson, WEIGHT SHIFTER, LABOR LAW PROFESSOR [address] [place] [address] 01/14/2025 1:00 PM LABORATORY MECHANIC HELPER [facility] [address] [facility] [address] [place] [address]. [place] [address] Khadijah Tamayo MD [address] [place] [phone] documented as of this encounter Visit Diagnoses Not on filedocumented in this encounter Additional Health Concerns Infection Onset Date Last Indicated Resolved Time R/O COVID19 11/26/2019 11/26/2019 11/27/2019 6:46 AM CDT R/O COVID19 02/19/2021 02/19/2021 02/20/2021 2:03 AM LABORATORY MECHANIC HELPER R/O COVID19 04/21/2021 04/21/2021 04/21/2021 8:52 PM CDT R/O COVID19 04/23/2021 04/23/2021 04/23/2021 6:52 PM CDT R/O COVID19 04/27/2021 04/27/2021 04/27/2021 6:03 PM CDT R/O COVID19 06/08/2021 06/08/2021 06/09/2021 12:3 5 AM CDT R/O COVID19 06/23/2021 06/23/2021 06/23/2021 8:31 PM CDT COVID19 06/23/2021 06/23/2021 07/04/2021 3:17 AM CDT R/O COVID19 03/01/2022 03/01/2022 03/01/2022 4:19 PM LABORATORY MECHANIC HELPER documented as of this encounter Care Teams Twill Cutter Relationship Specialty Start Date End Date Erna Sierra PA-C [address] [place] [address] PCP - General Physician Hat Presser 01/10/20 documented as of this encounter
--- OUTSIDE RECORDS SUMMARY | 2024-10-09 19:25 | XMS_ITS | Encounter Summary ---
Author Organization [facility] Address [address], [place] [address] Care Team Providers Care Insurance Processing Clerk Name Role Phone Erna Sierra PA-C Primary Care Provider +1- [phone] Encounter Details Date Type Department Care Team (Latest Contact Info) Description 09/02/2017 Correspondence [facility] [address] [place] [address] Ngozi Contreras MD [facility] [place] [address] STOP BANG DOT MARTIR PROTOCOL [...] Appointment [facility] at [facility] [address] [place] [address] Tatyana Crawford MBBS [address] [place] [address] 01/08/2025 1:00 PM MARKETING ACCOUNT MANAGER Telemedicine Digestive Care at [facility] and Specialty [facility] [address] [facility] [address] [place] [address] Jenna Simpson, OLD COIN DEALER, OIL PUMP STATION OPERATOR CHIEF [address] [place] [address] 01/14/2025 1:00 PM MARKETING ACCOUNT MANAGER [facility] [address] [place] [address]. [place] [address] Khadijah Tamayo MD [address] [place], [place] [phone] documented as of this encounter Visit Diagnoses Not on filedocumented in this encounter Additional Health Concerns Infection Onset Date Last Indicated Resolved Time R/O COVID19 11/26/2019 11/26/2019 11/27/2019 6:46 AM CDT R/O COVID19 02/19/2021 02/19/2021 02/20/2021 2:03 AM MARKETING ACCOUNT MANAGER R/O COVID19 04/21/2021 04/21/2021 04/21/2021 8:52 PM CDT R/O COVID19 04/23/2021 04/23/2021 04/23/2021 6:52 PM CDT R/O COVID19 04/27/2021 04/27/2021 04/27/2021 6:03 PM CDT R/O COVID19 06/08/2021 06/08/2021 06/09/2021 12:3 5 AM CDT R/O COVID19 06/23/2021 06/23/2021 06/23/2021 8:31 PM CDT COVID19 06/23/2021 06/23/2021 07/04/2021 3:17 AM CDT R/O COVID19 03/01/2022 03/01/2022 03/01/2022 4:19 PM MARKETING ACCOUNT MANAGER documented as of this encounter Care Teams Insurance Processing Clerk Relationship Specialty Start Date End Date Erna Sierra PA-C [address] [place] [address] PCP - General Physician Supervisor Anodizing 01/10/20 documented as of this encounter
--- OUTSIDE RECORDS SUMMARY | 2024-10-09 19:25 | XMS_ITS | Encounter Summary ---
Author Organization [facility] Address [address] [place] [address] Care Team Providers Care Business Continuity Manager Name Role Phone Erna Sierra PA-C Primary Care Provider +1- [phone] Reason for Referral * Consult/Transfer Care (Routine) - New Request Specialty Diagnoses / Procedures Referred By John gould Referred To Contact Diagnoses Leukocytosis, unspecified type (HRC) Erna Sierra PA-C [address] [place] [address] Phone: tel: fax: Referral ID Status Reason Start Date Expiration Date V isits Requested Visits Authorized [id number] New Request 09/10/2024 12/10/2025 1 1 Scheduling Instructions Your clinician [facility] an [facility] . You can quickly make your appointment online at VouchedFor/[email or web address]. You can also call [phone] for help scheduling your appointment. We suggest you call your health insurance company about your coverage and benefits for this appointment. Question Answer Appointment Urgency? Non-Urgent Reason for visit? leukocytosis, results pending * (Routine) - New Request Specialty Diagnoses / Procedures Referred By Contac t Referred To Contact Diagnoses Leukocytosis, unspecified type (HRC) Procedures E-Consult to Hematology Erna Sierra PA-C [address] [place] [address] Phone: tel: fax: Referral ID Status Reason Start Date Expiration Date V isits Requested Visits Authorized [id number] New Request 09/10/2024 12/10/2025 1 1 Encounter Details Date Type Department Care Team (Late st Contact Info) Description 09/07/2024 Results Follow-Up [facility] [address] [place], [place] [id number] Erna Sierra PA-C [address] [place] [address] Social History Tobacco Use Types Packs/Day Years [...] PM CDT Appointment [facility] at [facility] [address] [place], [place] [phone] Tatyana Crawford MBBS [address] [place] [address] 01/08/2025 1:00 PM ASSURANCE SENIOR MANAGER INSURANCE Telemedicine Digestive Care at [facility] [place] [address] [address] [address] [place], [place] [phone] Jenna Simpson, CREAM MAKER, RECORDER OF DEEDS [address] [place] [address] 01/14/2025 1:00 PM ASSURANCE SENIOR MANAGER INSURANCE [facility] [address] [place] [address]. [place] [address] Khadijah Tamayo MD [address] [place], [place] [phone] Scheduled Referrals Name Type Priority Associated Diagnoses Orde r Schedule Hematology Consult Adult Referral Routine Leukocytosis, unspecified type (HRC) Ordered: 09/10/2024 documented as of this encounter Results * (ABNORMAL) BCR/ABL1 Qual with Reflex (09/26/2024 12:36 PM CDT) [facility] BCR Source Whole Blood 10/02/2024 4:45 PM CDT [facility] Diagnostic Qual BCR-ABL1 Assay Result Positive Major(A) 10/02/2024 4:45 PM CDT [facility] Comment: There is evidence of major (p210, [...] reference gene is also amplified for specimen lead quality technician and to ensure the integrity of RNA. [...] developed and its performance characteristics determined by [facility]. It has not been cleared or approved by the U.S. Food and Drug Administration. This test was performed in a CLIA-certified laboratory and is intended for clinical purposes. Performed By: [facility] [address] [place] [address] Halal Meat Packer: Emilio Vidales MD, PhD CLIA Number: [id number] Blood Venipuncture / Unknown 09/26/2024 12:36 PM CDT 09/26/2024 12:36 PM CDT us Erna Sierra PA-C LAB_1 Final Resu lt [facility] CLIA: [id number] [address] [place] [address], [facility] * C-Reactive Protein (09/06/2024 11:39 AM CDT) C-Reactive Protein 0.4 0.0 - 0.5 mg/dL 09/10/2024 2:16 PM CDT [facility] Blood Venipuncture / Unknown 09/06/2024 11:39 AM CDT 09/06/2024 11:39 AM CDT us Erna Sierra PA-C LAB_1 Final Resu lt [facility] [address] documented in this encounter Visit Diagnoses Diagnosis Leukocytosis, unspecified type (HRC)- Primary documented in this encounter Care Teams Business Continuity Manager Relationship Specialty Start Date End Date Erna Sierra PA-C [address] [place] [address] PCP - General Physician Bait Digger 01/10/20 documented as of this encounter
--- OUTSIDE RECORDS SUMMARY | 2024-10-09 19:25 | XMS_ITS | Encounter Summary ---
Author Organization [facility] Address [address] [place] [address] Care Team Providers Care Wheel Alignment Technician Name Role Phone Erna Sierra PA-C Primary Care Provider +1- [phone] Encounter Details Date Type Department Care Team (Late st Contact Info) Description 07/31/2024 E-Visit Specialty Center [address] [place] [address] Naveed [place] [address] Social History Tobacco Use Types Packs/Day Years [...] Info) Description 10/18/2024 12:30 PM CDT Appointment [facility] at [facility] [address] [place] [address] Tatyana Crawford MBBS [address] [place] [address] 01/08/2025 1:00 PM OPTION TRADER Telemedicine Digestive Care at [facility] and Specialty [address] [address] [place] [address] Jenna Simpson, PRESCRIPTION CLERK, ANALYST [facility] [address] [place], [place] [address] 01/14/2025 1:00 PM OPTION TRADER Tele[facility]icine Specialty Center [address] [place] [address]. [place], [place] [phone] Khadijah Tamayo MD [address] [place], [place] [phone] documented as of this encounter Visit Diagnoses Not on filedocumented in this encounter Care Teams Wheel Alignment Technician Relationship Specialty Start Date End Date Erna Sierra PA-C [address] [place] [address] PCP - General Physician Gyroscopic Instrument Tester 01/10/20 documented as of this encounter
--- OUTSIDE RECORDS SUMMARY | 2024-10-09 19:25 | XMS_ITS | Encounter Summary ---
Author Organization [facility] Address [address], [place] [address] Care Team Providers Care Pinion And Wheel Truer Name Role Phone Erna Sierra PA-C Primary Care Provider +1- [phone] Encounter Details Date Type Department Care Team (Late st Contact Info) Description 09/04/2024 Results Follow-Up [facility] [address] [place] [address] Erna Sierra PA-C [address] [place] [address] Social History Tobacco Use Types Packs/Day Years [...] Nursing Notes * Erna Sierra PA-C - 09/06/2024 7:31 AM CDT See Evisit addressing patient concerns * Sherrie Franco RN - 09/04/2024 5:20 PM CDT Verified patient identity using 3 identifiers. RN relayed provider message below to patient. Patient reports about 20 minutes ago he developed a headache. He reports that he has not eaten much today therefore, he did just eat and will see if that helps. RN instructed he could present to a higher level of care this evening based on his symptoms. Patient verbalized understanding and will see how he feels. Agreeable to labs later this week as well, please place if appropriate. Aware PCP is gone and will not hear back this evening (09/04/2024) documented in this encounter Plan of Treatment Upcoming Encounters Date Type Department Care Team (Late st Contact Info) Description 10/18/2024 12:30 PM CDT Appointment [facility] [address] [place] [address] Tatyana Crawford MBBS [address] [place], [place] [id number] 01/08/2025 1:[address] MACHINE RUNNER Telemedicine Digestive Care at [facility] and [address] [place] [address] [place], [place] 8[address] Jenna Simpson, WALL TO WALL CARPET INSTALLER, ARCHITECTURAL MODELER [address] [place], [place] [address] 01/14/2025 1:[address] MACHINE RUNNER [facility] [address] [facility] [place] [address]. [place], [place] [phone] Khadijah Tamayo MD [address] [place], [place] [phone] documented as of this encounter Visit Diagnoses Not on filedocumented in this encounter Care Teams Pinion And Wheel Truer Relationship Specialty Start Date End Date Erna Sierra PA-C [address] [place] [address] PCP - General Physician Water Resources Technical Officer 01/10/20 documented as of this encounter
--- OUTSIDE RECORDS SUMMARY | 2024-10-09 19:25 | XMS_ITS | Encounter Summary ---
[facility] Address [address], [place] [address] Care Team Providers Care Agricultural Technician Name Role Phone Erna Sierra PA-C Primary Care Provider +1- [phone] Encounter Details Date Type Department Care Team (Latest Contact Info) Description 09/02/2017 Correspondence [place] [facility] 22[address] [place] [address] Ngozi Contreras MD [facility] [place] [address] MEDICAL EXAMINERS CERTIFICATE Social History [...] Info) Description 10/18/2024 12:30 PM CDT [facility]ment [facility] [address] [place] [address] Tatyana Crawford MBBS 8[address] [place] [address] 01/08/2025 1:00 PM SUPERVISOR FINISHING ROOM Telemedicine Digestive Care at [facility] and Specialty [facility] [address] [facility] [address] [place] [address] Jenna Simpson, MAGNET MAKER, DIRECTOR MISSION [address] [place] [address] 01/14/2025 1:00 PM SUPERVISOR FINISHING ROOM [facility] [address] [place] [address]. [place] [address] Khadijah Tamayo MD [address] [place] [phone] documented as of this encounter Visit Diagnoses Not on filedocumented in this encounter Additional Health Concerns Infection Onset Date Last Indicated Resolved Time R/O COVID19 11/26/2019 11/26/2019 11/27/2019 6:46 AM CDT R/O COVID19 02/19/2021 02/19/2021 02/20/2021 2:03 AM SUPERVISOR FINISHING ROOM R/O COVID19 04/21/2021 04/21/2021 04/21/2021 8:52 PM CDT R/O COVID19 04/23/2021 04/23/2021 04/23/2021 6:52 PM CDT R/O COVID19 04/27/2021 04/27/2021 04/27/2021 6:03 PM CDT R/O COVID19 06/08/2021 06/08/2021 06/09/2021 12:3 5 AM CDT R/O COVID19 06/23/2021 06/23/2021 06/23/2021 8:31 PM CDT COVID19 06/23/2021 06/23/2021 07/04/2021 3:17 AM CDT R/O COVID19 03/01/2022 03/01/2022 03/01/2022 4:19 PM SUPERVISOR FINISHING ROOM documented as of this encounter Care Teams Agricultural Technician Relationship Specialty Start Date End Date Erna Sierra PA-C [address] [place] [address] PCP - General Physician Clin Nurse 01/10/20 documented as of this encounter
--- OUTSIDE RECORDS SUMMARY | 2024-10-09 19:25 | XMS_ITS | Encounter Summary ---
Author Organization [facility] Address [address], [place] [address] Care Team Providers Care Assistant Real Estate Manager Name Role Phone Erna Sierra PA-C Primary Care Provider +1- [phone] Encounter Details Date Type Department Care Team (Latest Contact Info) Description 09/02/2017 Correspondence [place] Occup[facility] Environmental Medicine [address] [place] [address] Ngozi Contreras MD [facility] [place] [address] MEDICAL EXAMINATION REPORT FORM Social [...] 10/18/2024 12:30 PM CDT Appointment [facility] Cancer Care at [facility] [address] [place] [address] Tatyana Crawford MBBS 3507 [place] [address] 01/08/2025 1:00 PM REAL ESTATE INVESTMENT ANALYST Telemedicine Digestive Care at [facility] and Specialty [facility] [address] [facility] [address] [place] [address] Jenna Simpson, WIRE STRETCHER, GRISTMILLER [address] [place] [address] 01/14/2025 1:00 PM REAL ESTATE INVESTMENT ANALYST [facility] Center [address] [place] [address]. [place] [address] Khadijah Tamayo MD [address] [place] [phone] documented as of this encounter Visit Diagnoses Not on filedocumented in this encounter Additional Health Concerns Infection Onset Date Last Indicated Resolved Time R/O COVID19 11/26/2019 11/26/2019 11/27/2019 6:46 AM CDT R/O COVID19 02/19/2021 02/19/2021 02/20/2021 2:03 AM REAL ESTATE INVESTMENT ANALYST R/O COVID19 04/21/2021 04/21/2021 04/21/2021 8:52 PM CDT R/O COVID19 04/23/2021 04/23/2021 04/23/2021 6:52 PM CDT R/O COVID19 04/27/2021 04/27/2021 04/27/2021 6:03 PM CDT R/O COVID19 06/08/2021 06/08/2021 06/09/2021 12:3 5 AM CDT R/O COVID19 06/23/2021 06/23/2021 06/23/2021 8:31 PM CDT COVID19 06/23/2021 06/23/2021 07/04/2021 3:17 AM CDT R/O COVID19 03/01/2022 03/01/2022 03/01/2022 4:19 PM REAL ESTATE INVESTMENT ANALYST documented as of this encounter Care Teams Assistant Real Estate Manager Relationship Specialty Start Date End Date Erna Sierra PA-C [address] [place] [address] PCP - General Physician Horseback Excavator 01/10/20 documented as of this encounter
--- OUTSIDE RECORDS SUMMARY | 2024-10-09 19:25 | XMS_ITS | Encounter Summary ---
Author Organization [facility] Address [address] [place] [address] Care Team Providers Care Gas And Oil Checker Name Role Phone Erna Sierra PA-C Primary Care Provider +1- [phone] Encounter Details Date Type Department Care Team (Latest Contact Info) Description 08/24/2016 Correspondence [facility] Occupational and Environmental Medicine [address] [place] [address] [phone] Edu Perdue PA-C [address] [place], [place] [phone] MED EXAM REPORT FORM Social History Tobacco [...] Info) Description 10/18/2024 12:30 PM CDT Appointment [facility] Cancer Care at [address] [place] [address] Tatyana Crawford MBBS 77[address] [place] [address] 01/08/2025 1:00 PM HOME MISSION WORKER Telemedicine Digestive Care at [facility] and Specialty [facility] [address] [facility] [address] [place] [address] Jenna Simpson, WARDROBE SUPERVISOR, BRIDGE ENGINEER 6500 [place] [address] 01/14/2025 1:00 PM HOME MISSION WORKER Tele[facility]icine Specialty Center [address] [place] [address]. [place] [address] Khadijah Tamayo MD 401 [place], [place] [phone] documented as of this encounter Visit Diagnoses Not on filedocumented in this encounter Additional Health Concerns Infection Onset Date Last Indicated Resolved Time R/O COVID19 11/26/2019 11/26/2019 11/27/2019 6:46 AM CDT R/O COVID19 02/19/2021 02/19/2021 02/20/2021 2:0 3 AM HOME MISSION WORKER R/O COVID19 04/21/2021 04/21/2021 04/21/2021 8:52 PM CDT R/O COVID19 04/23/2021 04/23/2021 04/23/2021 6:52 PM CDT R/O COVID19 04/27/2021 04/27/2021 04/27/2021 6:03 PM CDT R/O COVID19 06/08/2021 06/08/2021 06/09/2021 12:3 5 AM CDT R/O COVID19 06/23/2021 06/23/2021 06/23/2021 8:31 PM CDT COVID19 06/23/2021 06/23/2021 07/04/2021 3:17 AM CDT R/O COVID19 03/01/2022 03/01/2022 03/01/2022 4:19 PM HOME MISSION WORKER documented as of this encounter Care Teams Gas And Oil Checker Relationship Specialty Start Date End Date Erna Sierra PA-C [address] [place] [address] PCP - General Physician Trimmer And Reinforcer 01/10/20 documented as of this encounter
--- OUTSIDE RECORDS SUMMARY | 2024-10-09 19:25 | XMS_ITS | Encounter Summary ---
Author Organization [facility] Address [address], [place] [address] Care Team Providers Care Sap Pi Architect Name Role Phone Erna Sierra PA-C Primary Care Provider +1- [phone] Encounter Details Date Type Department Care Team [...] Info) Description 10/18/2024 12:30 PM CDT [facility] [address] [place], [place] [address]207 Tatyana Crawford MBBS 20[address] [place] [address] 01/08/2025 1:00 PM HYDRO MECHANIC Telemedicine Digestive Care at [facility] and Specialty Center [address] [address] [place] [address] Jenna Simpson, FOOD SERVICES MANAGER, ADMISSIONS COORDINATOR 6500 [place] [address] 01/14/2025 1:00 PM HYDRO MECHANIC Tele[facility]icine Specialty Center [address] [place] [address]. [place] [address] Khadijah Tamayo MD [address] [place] [phone] documented as of this encounter Visit Diagnoses Not on filedocumented in this encounter Additional Health Concerns Infection Onset Date Last Indicated Resolved Time R/O COVID19 11/26/2019 11/26/2019 11/27/2019 6:46 AM CDT R/O COVID19 02/19/2021 02/19/2021 02/20/2021 2:03 AM HYDRO MECHANIC R/O COVID19 04/21/2021 04/21/2021 04/21/2021 8:52 PM CDT R/O COVID19 04/23/2021 04/23/2021 04/23/2021 6:52 PM CDT R/O COVID19 04/27/2021 04/27/2021 04/27/2021 6:03 PM CDT R/O COVID19 06/08/2021 06/08/2021 06/09/2021 12:3 5 AM CDT R/O COVID19 06/23/2021 06/23/2021 06/23/2021 8:31 PM CDT COVID19 06/23/2021 06/23/2021 07/04/2021 3:17 AM CDT R/O COVID19 03/01/2022 03/01/2022 03/01/2022 4:19 PM HYDRO MECHANIC documented as of this encounter Care Teams Sap Pi Architect Relationship Specialty Start Date End Date Erna Sierra PA-C [address] [place] [address] PCP - General Physician Mixed Crop And Livestock Farm Worker 01/10/20 documented as of this encounter
--- OUTSIDE RECORDS SUMMARY | 2024-10-09 19:25 | XMS_ITS | Encounter Summary ---
Author Organization [facility] Address [address] [place] [address] Care Team Providers Care Metallurgical Engineering Teacher Name Role Phone Erna Sierra PA-C Primary Care Provider +1- [phone] Encounter Details Date Type Department Care Team (Late st Contact Info) Description 08/22/2018 Correspondence [facility] 3931 Pulmonary Medicine 3931 [place] [address] Neurock, Veronica Godwin, SEAL SKINNER, SHADE MATCHER 3931 [place] [address] CLEARANCE - DRIVE COMMERCIAL VEHICLE [...] PM CDT Appointment [facility] at [facility] [address] [place] [address] Tatyana Crawford MBBS 5831 [place] [address] 01/08/2025 1:00 PM KNIFE GRINDER Telemedicine Digestive Care at [facility] and Specialty [facility] [address] [facility] [address] [place] [address] Jenna Simpson, SEAL SKINNER, SHADE MATCHER [address] [place], [place] [address] 01/14/2025 1:00 PM KNIFE GRINDER Telemedicine Specialty Center [address] [place] [address]. [place] [address] Khadijah Tamayo MD 401 [place] [address] documented as of this encounter Visit Diagnoses Not on filedocumented in this encounter Additional Health Concerns Infection Onset Date Last Indicated Resolved Time R/O COVID19 11/26/2019 11/26/2019 11/27/2019 6:46 AM CDT R/O COVID19 02/19/2021 02/19/2021 02/20/2021 2:03 AM KNIFE GRINDER R/O COVID19 04/21/2021 04/21/2021 04/21/2021 8:52 PM CDT R/O COVID19 04/23/2021 04/23/2021 04/23/2021 6:52 PM CDT R/O COVID19 04/27/2021 04/27/2021 04/27/2021 6:03 PM CDT R/O COVID19 06/08/2021 06/08/2021 06/09/2021 12:3 5 AM CDT R/O COVID19 06/23/2021 06/23/2021 06/23/2021 8:31 PM CDT COVID19 06/23/2021 06/23/2021 07/04/2021 3:17 AM CDT R/O COVID19 03/01/2022 03/01/2022 03/01/2022 4:19 PM KNIFE GRINDER documented as of this encounter Care Teams Metallurgical Engineering Teacher Relationship Specialty Start Date End Date Erna Sierra PA-C [address] [place] [address] PCP - General Physician Forensic Social Worker 01/10/20 documented as of this encounter
--- OUTSIDE RECORDS SUMMARY | 2024-10-09 19:25 | XMS_ITS | Encounter Summary ---
Author Organization [facility] Address [address] [address] Care Team Providers Care Skidder Lever Operator Name Role Phone Erna Sierra PA-C Primary Care Provider +1- [phone] Encounter Details Date Type Department Care Team [...] Info) Description 10/18/2024 12:30 PM CDT [facility] at [facility] [address] [place], [place] [address] Tatyana Crawford MBBS [address] [place], [place] [address] 01/08/2025 1:00 PM ANIMAL TRAPPER Telemedicine Digestive Care at [facility] and Specialty Center [address] [address] [place] [address] Jenna Simpson, MOUNTER SAXOPHONES, COMMUNICATIONS ANALYST 6500 [place] [address] 01/14/2025 1:00 PM ANIMAL TRAPPER Telemedicine Specialty Center [address] [place] [address]. [place] [address] Khadijah Tamayo MD [address] [place] [address] [phone] documented as of this encounter Visit Diagnoses Not on filedocumented in this encounter Additional Health Concerns Infection Onset Date Last Indicated Resolved Time R/O COVID19 11/26/2019 11/26/2019 11/27/2019 6:46 AM CDT R/O COVID19 02/19/2021 02/19/2021 02/20/2021 2:03 AM ANIMAL TRAPPER R/O COVID19 04/21/2021 04/21/2021 04/21/2021 8:52 PM CDT R/O COVID19 04/23/2021 04/23/2021 04/23/2021 6:52 PM CDT R/O COVID19 04/27/2021 04/27/2021 04/27/2021 6:03 PM CDT R/O COVID19 06/08/2021 06/08/2021 06/09/2021 12:3 5 AM CDT R/O COVID19 06/23/2021 06/23/2021 06/23/2021 8:31 PM CDT COVID19 06/23/2021 06/23/2021 07/04/2021 3:17 AM CDT R/O COVID19 03/01/2022 03/01/2022 03/01/2022 4:19 PM ANIMAL TRAPPER documented as of this encounter Care Teams Skidder Lever Operator Relationship Specialty Start Date End Date Erna Sierra PA-C [address] [place] [address] PCP - General Physician Director New Product 01/10/20 documented as of this encounter
--- OUTSIDE RECORDS SUMMARY | 2024-10-09 19:25 | XMS_ITS | Encounter Summary ---
Author Organization [facility] Address [address], [place] [address] Care Team Providers Care Cost Estimating Manager Name Role Phone Erna Sierra PA-C Primary Care Provider +1- [phone] Encounter Details Date Type Department Care Team (Late st Contact Info) Description 08/24/2016 Correspondence [facility] Occupational and Environmental Medicine [address] [place] [address] [phone] Edu Perdue PA-C [address] [place], [place] [phone] STOP BANG DOT Social History Tobacco Use [...] Info) Description 10/18/2024 12:30 PM CDT Appointment [facility] Cancer Care at [address] [place] [address] Tatyana Crawford MBBS 9689 [place] [address] 01/08/2025 1:00 PM OFFSET PRINTER Telemedicine Digestive Care at [facility] and Specialty [facility] [address] [facility] [address] [place] [address] Jenna Simpson, PAPER TUBE CUTTER, DRAPERY MAKER 6500 [place] [address] 01/14/2025 1:00 PM OFFSET PRINTER Telemedicine Specialty Center [address] [place] [address]. [place] [address] Khadijah Tamayo MD [address] [place] [address] [phone] documented as of this encounter Visit Diagnoses Not on filedocumented in this encounter Additional Health Concerns Infection Onset Date Last Indicated Resolved Time R/O COVID19 11/26/2019 11/26/2019 11/27/2019 6:46 AM CDT R/O COVID19 02/19/2021 02/19/2021 02/20/2021 2:03 AM OFFSET PRINTER R/O COVID19 04/21/2021 04/21/2021 04/21/2021 8:52 PM CDT R/O COVID19 04/23/2021 04/23/2021 04/23/2021 6:52 PM CDT R/O COVID19 04/27/2021 04/27/2021 04/27/2021 6:03 PM CDT R/O COVID19 06/08/2021 06/08/2021 06/09/2021 12:3 5 AM CDT R/O COVID19 06/23/2021 06/23/2021 06/23/2021 8:31 PM CDT COVID19 06/23/2021 06/23/2021 07/04/2021 3:17 AM CDT R/O COVID19 03/01/2022 03/01/2022 03/01/2022 4:19 PM OFFSET PRINTER documented as of this encounter Care Teams Cost Estimating Manager Relationship Specialty Start Date End Date Erna Sierra PA-C [address] [place] [address] PCP - General Physician Rehabilitation Teacher 01/10/20 documented as of this encounter
--- OUTSIDE RECORDS SUMMARY | 2024-10-09 19:25 | XMS_ITS | Encounter Summary ---
Author Organization [facility] Address [address] [address] Care Team Providers Care Senior Web Developer Name Role Phone Erna Sierra PA-C Primary Care Provider +1- [phone] Encounter Details Date Type Department Care Team (Late st Contact Info) Description 01/30/2019 Correspondence External to External, [place] [address] NOT MEDICALLY CERTIFIED -TSA Social History Tobacco [...] Info) Description 10/18/2024 12:30 PM CDT Appointment [facility] [address] [place] [address] Tatyana Crawford MBBS 4618 [place] [address] 01/08/2025 1:00 PM SOLAR/RENEWABLE ENERGY SALES Telemedicine Digestive Care at [facility] [place] [address] [facility] [address] [place] [address] Jenna Simpson, AUTO OVERHAULER, BIOFUELS ENGINEERING MANAGER 6500 [place] [address] 01/14/2025 1:00 PM SOLAR/RENEWABLE ENERGY SALES Telemedicine Specialty Center [facility] Endocrinology Clinic [address] [place] [address]. [place] [address] Khadijah Tamayo MD [address] [place] [address] documented as of this encounter Visit Diagnoses Not on filedocumented in this encounter Additional Health Concerns Infection Onset Date Last Indicated Resolved Time R/O COVID19 11/26/2019 11/26/2019 11/27/2019 6:46 AM CDT R/O COVID19 02/19/2021 02/19/2021 02/20/2021 2:03 AM SOLAR/RENEWABLE ENERGY SALES R/O COVID19 04/21/2021 04/21/2021 04/21/2021 8:52 PM CDT R/O COVID19 04/23/2021 04/23/2021 04/23/2021 6:52 PM CDT R/O COVID19 04/27/2021 04/27/2021 04/27/2021 6:03 PM CDT R/O COVID19 06/08/2021 06/08/2021 06/09/2021 12:3 5 AM CDT R/O COVID19 06/23/2021 06/23/2021 06/23/2021 8:31 PM CDT COVID19 06/23/2021 06/23/2021 07/04/2021 3:17 AM CDT R/O COVID19 03/01/2022 03/01/2022 03/01/2022 4:19 PM SOLAR/RENEWABLE ENERGY SALES documented as of this encounter Care Teams Senior Web Developer Relationship Specialty Start Date End Date Erna Sierra PA-C [address] [place] [address] PCP - General Physician Top Dyeing Machine Loader 01/10/20 documented as of this encounter
--- OUTSIDE RECORDS SUMMARY | 2024-10-09 19:25 | XMS_ITS | Encounter Summary ---
Author Organization [facility] Address [address], [place] [address] Care Team Providers Care Director Of Global Marketing Name Role Phone Erna Sierra PA-C Primary Care Provider +1- [phone] Encounter Details Date Type Department Care Team [...] Info) Description 10/18/2024 12:30 PM CDT Appointment [facility] Cancer Care at [facility] [address] [place], [place] [address] Tatyana Crawford MBBS 7[address] [place] [address] 01/08/2025 1:00 PM CUSTOM APPLICATOR Telemedicine Digestive Care at [facility] and Specialty Center [address] [address] [place] [address] Jenna Simpson, SOLDERING MACHINE TENDER, REWINDER 6500 [facility] [place] [address] 01/14/2025 1:00 PM CUSTOM APPLICATOR Telemedicine Specialty Center [address] [place] [address]. [place] [address] Khadijah Tamayo MD 401 [place] [address] documented as of this encounter Visit Diagnoses Not on filedocumented in this encounter Additional Health Concerns Infection Onset Date Last Indicated Resolved Time R/O COVID19 11/26/2019 11/26/2019 11/27/2019 6:46 AM CDT R/O COVID19 02/19/2021 02/19/2021 02/20/2021 2:03 AM CUSTOM APPLICATOR R/O COVID19 04/21/2021 04/21/2021 04/21/2021 8:52 PM CDT R/O COVID19 04/23/2021 04/23/2021 04/23/2021 6:52 PM CDT R/O COVID19 04/27/2021 04/27/2021 04/27/2021 6:03 PM CDT R/O COVID19 06/08/2021 06/08/2021 06/09/2021 12:3 5 AM CDT R/O COVID19 06/23/2021 06/23/2021 06/23/2021 8:31 PM CDT COVID19 06/23/2021 06/23/2021 07/04/2021 3:17 AM CDT R/O COVID19 03/01/2022 03/01/2022 03/01/2022 4:19 PM CUSTOM APPLICATOR documented as of this encounter Care Teams Director Of Global Marketing Relationship Specialty Start Date End Date Erna Sierra PA-C [address] [place] [address] PCP - General Physician Campus Receptionist 01/10/20 documented as of this encounter
--- OUTSIDE RECORDS SUMMARY | 2024-10-09 19:25 | XMS_ITS | Encounter Summary ---
Author Organization [facility] Address [address] [address] Care Team Providers Care Marine Electronics Technician Name Role Phone Erna Sierra PA-C Primary Care Provider +1- [phone] Encounter Details Date Type Department Care Team (Latest Contact Info) Description 09/02/2017 Correspondence [place] Occupational and Environmental Medicine [address] [place] [address] Ngozi Contreras MD [facility] [place] [address] AUTH FOR [facility] MEDICINE EXAM Social History Tobacco Use Types [...] Upcoming Encounters Date Type Department Care Team ( st Contact Info) Description 10/18/2024 12:30 PM CDT Appointment [facility] Cancer Care at [facility] [address] [place] [address] Tatyana Crawford MBBS 3027 [place] [address] 01/08/2025 1:00 PM BUZZSAW OPERATOR Telemedicine Digestive Care at [facility] and Specialty [facility] [address] [facility] [address] [place] [address] Jnena Simpson, DIRECTOR ENTERPRISE SALES, ASSORTER LAUNDRY [address] [place] [address] 01/14/2025 1:00 PM BUZZSAW OPERATOR Telemedicine Specialty Center [address] [place] [address]. [place] [address] Khadijah Tamayo MD 401 [place], [place] [phone] documented as of this encounter Visit Diagnoses Not on filedocumented in this encounter Additional Health Concerns Infection Onset Date Last Indicated Resolved Time R/O COVID19 11/26/2019 11/26/2019 11/27/2019 6:46 AM CDT R/O COVID19 02/19/2021 02/19/2021 02/20/2021 2:03 AM BUZZSAW OPERATOR R/O COVID19 04/21/2021 04/21/2021 04/21/2021 8:52 PM CDT R/O COVID19 04/23/2021 04/23/2021 04/23/2021 6:52 PM CDT R/O COVID19 04/27/2021 04/27/2021 04/27/2021 6:03 PM CDT R/O COVID19 06/08/2021 06/08/2021 06/09/2021 12:3 5 AM CDT R/O COVID19 06/23/2021 06/23/2021 06/23/2021 8:31 PM CDT COVID19 06/23/2021 06/23/2021 07/04/2021 3:17 AM CDT R/O COVID19 03/01/2022 03/01/2022 03/01/2022 4:19 PM BUZZSAW OPERATOR documented as of this encounter Care Teams Marine Electronics Technician Relationship Specialty Start Date End Date Erna Sierra PA-C [address] [place] [address] PCP - General Physician Field Marketing Manager 01/10/20 documented as of this encounter
[2024-10-09 19:30] VITALS: BP 127/86; PULSE 66; RESP 16; TEMP 36.3; O2SAT 97; BMI 41.7
--- NOTE | 2024-10-09 20:41 | ED.GENADULT ---
HPI - General Adult General Date Seen: 10/09/24 Chief complaint: Extremity Pain/Injury, Lower Stated complaint: R big toenail injury, on blood thinners Time Seen by Provider: 10/09/24 20:27 History of Present Illness HPI narrative: 34-year-old male presenting to the ER today with a avulsion of his right great toenail. He is negative on a rug and pulled it just prior to arrival. It has been bleeding around the nail bed. 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 He was cleaning up some water that his 2-year-old child spilled on the floor this evening. He accidentally caught his toenail of his right big toe on the rug and towel on the floor and suffered an avulsion. Describes seeing the toenail tipped up at about 45? compared to its normal position. He has had bleeding from the toenail bed ever since then. He was able to reposition the toenail back into its anatomic alignment. No other injury. He is able to wiggle in bend his toe. He does not think it is broken. Related Data Home Medications ?Medication ?Instructions ?Recorded ?Confirmed citalopram .ROUTE 02/19/24 metoprolol tartrate .ROUTE 02/19/24 rivaroxaban .ROUTE 02/19/24 topiramate .ROUTE 02/19/24 triamterene .ROUTE 02/19/24 Allergies Allergy/AdvReac Type Severity Reaction Status Date / Time corn oil Allergy Unknown Verified 02/19/24 08:24 lisinopril Allergy Unknown Verified 02/19/24 08:24 sertraline Allergy Unknown Verified 02/19/24 08:24 [facility] Social History Smoking Status: Never smoker Do you use any of these nicotine containing products: None Second hand tobacco smoke exposure: No How often do you have a drink containing alcohol: never How often do you have six or more drinks on one occasion: Never AUDIT-C Alcohol total score: 0 Non-prescribed substance use: denies use Exam Narrative: Exam Narrative: Constitutional: Appears well-developed and well-nourished. Active. Non-toxic appearing. HENT: Head: Atraumatic. No signs of injury. Nose: No nasal discharge. Mouth/Throat: Mucous membranes are moist. Pharynx is normal. Tonsils symmetric. Uvula midline. Airway patent. Eyes: Conjunctivae normal and EOM are normal. Pupils are equal, round, and reactive to light. Right eye exhibits no discharge. Left eye exhibits no discharge. No icterus. Neck: Normal range of motion. Neck supple. No adenopathy. No stridor. Cardiovascular: Normal rate and regular rhythm. No murmur heard. No murmurs, rubs, or gallops. Brisk capillary refill Pulmonary/Chest: Effort normal. No stridor. No respiratory distress. No wheezes.No rhonchi. No rales. No retractions. Abdominal: Soft. Bowel sounds are normal. No distension. No mass. There is no tenderness. There is no rebound and no guarding. Musculoskeletal: Normal range of motion. No edema. No tenderness. No deformity. Right foot: He does have thickening and onychomycosis of the toenail of the right great toe. There is some dry blood around the edge of the toenail plate. No active bleeding. The toenail is loosely adherent to the nail bed but not easily abducted away from the nail bed. completely the proximal toenail plate is in position and the nail matrix. There is no overlying skin laceration. Neurological: Alert. Normal strength. No cranial nerve deficit or sensory deficit. Coordination normal. GCS eye subscore is 4. GCS verbal subscore is 5. GCS motor subscore is 6. Skin: Skin is warm. No rash noted. Const: Vital Signs, click to edit/add: Vital Signs - 24 hr 10/09/24 19:30 10/09/24 21:20 10/09/24 21:21 Temperature 97.4 F L 98.0 F 98.0 F Pulse Rate [Pulse Oximeter] 66 71 71 Respiratory Rate 16 16 16 Blood Pressure [Ri t Upper Arm] 127/86 125/70 125/70 Pulse Oximetry 97 97 Oxygen Delivery Me thod Room Air Room Air Course Vital Signs Vital signs: Initial Vital Signs Temperature 97.4 F L 10/09/24 19:30 Temperature Source Temporal Artery Scan 10/09/24 19:30 Pulse Rate 66 10/09/24 19:30 Respiratory Rate 16 10/09/24 19:30 Blood Pressure 127/86 10/09/24 19:30 Blood Pressure Mean 99 10/09/24 19:30 Blood Pressure Position Sitting 10/09/24 19:30 Pulse Oximetry 97 10/09/24 19:30 Oxygen Delivery Method Room Air 10/09/24 19:30 Vital Signs Temperature 97.4 F L 10/09/24 19:30 Pulse Rate 66 10/09/24 19:30 Respiratory Rate 16 10/09/24 19:30 Blood Pressure 127/86 10/09/24 19:30 Pulse Oximetry 97 10/09/24 19:30 Oxygen Delivery Method Room Air 10/09/24 19:30 Temperature 98.0 F 10/09/24 21:21 Pulse Rate 71 10/09/24 21:21 Respiratory Rate 16 10/09/24 21:21 Blood Pressure 125/70 10/09/24 21:21 Pulse Oximetry 97 10/09/24 21:20 Oxygen Delivery Method Room Air 10/09/24 21:20 Medical Decision Making MDM Narrative Medical decision making narrative: Pleasant 34-year-old gentleman who is on arrival [facility] for history PE. He was also recently diagnosed with leukemia last week. He also was recently diagnosed with an ear infection and put on Augmentin yesterday. He presents to the ER today for an accidental avulsion injury to his right big toe. This occurred when he caught on the rug/towel when he was cleaning up water his child had spilled. Here in the ER the toenail appears to be in anatomic position. It has been bleeding but there is no active bleeding anymore, despite his use of Xarelto. Discussed options with the patient. We discussed that we could try to suture the toenail plate in place to keep it over the nail bed. However he would prefer to avoid that and the risk of injections from digital block and sutures might just trigger more bleeding. Therefore will have the nurses apply tape to keep the nail in position. Will then put the patient into an ortho shoe to help protect the toenail. Provided with a note for work (he works for [employer]) so he can stay off his foot for the next couple of days to allow to heal. Discussed with the patient that there is a highly likelihood that as the new toenail continues to grow that the current toenail may fall off in a couple of weeks. Discussed the risk for toenail deformity. He is already on Augmentin for an ear infection. This would be sufficient to prevent infections in his toe. Discharge Plan Discharge Clinical Impression: Avulsion of toenail Patient Disposition: Home, Self-Care Condition: Stable Instructions: Nail Avulsion (ED) Additional Instructions: As we discussed, please wear the ortho shoe for the next couple of days to help protect her toe from bending. Keep the tape and dressings in place on the toe to help keep the toenail in place so that is not get pulled away from the nail bed. As the pain starts to get better, you can go back to wearing regular shoes. Be sure to keep a tape or dressing over the toenail before you put her socks on to keep it from bending up. Wear shoes with supportive so whole and a low open foot bed so that is not pinch your toenail when you walk. We hope that this toenail will heal. There is a good chance that after a few weeks the existing toenail will fall off and a new toenail will grow out in its place. Please come back to the ER or see your doctor right away if you have any concerns especially if have uncontrolled bleeding that soaking through your dressing, signs of infection such as redness, swelling, or pus draining from her toenail). Please take the Augmentin that was prescribed to you for your ear infection. This will also help prevent toe infections. Prescriptions: No Action metoprolol tartrate .ROUTE rivaroxaban [Xarelto] .ROUTE topiramate .ROUTE triamterene .ROUTE citalopram .ROUTE Follow Up/Referrals: Provider,Not a Local [Primary Care Provider, Family Practice] Stand Alone Forms: Work/School Release, [employer] Info Instructions
--- OUTSIDE RECORDS SUMMARY | 2024-10-09 21:05 | XMS_ITS | Encounter Summary ---
Author Organization [facility] Address [address] [place] [address] Care Team Providers Care Auto Service Writer Name Role Phone Erna Sierra PA-C Primary Care Provider [phone] Marin Liu PA-C Unavailable [phone] Encounter Details Date Type Department Care Team (Late Contact Info) Description 02/18/2023 MyC Medical Advice [facility] [address] [place] [id number] Marin Liu PA-C [address] [place] [address] [address] [place] [address] Bilateral pulmonary embolism (H) (Primary [...] on file Legal Sex Male 9:12 PM RECEIVING OPERATOR Gender Identity Not on file Sexual Orientation Not on file documented as of this encounter Plan of Treatment Upcoming Encounters Date Type Department Care Team (Late Contact Info) Description 03/08/2025 1:00 PM RECEIVING OPERATOR Virtual Visit [facility] [address] [place] [address] [address] [place] [address] Marin Liu PA-C [address] [address] documented as of this encounter Results * (ABNORMAL) Hepatic function panel (02/28/2023 9:31 AM RECEIVING OPERATOR) Protein Total 7.6 6.4 - 8.3 g/dL 02/28/2023 6:01 PM RECEIVING OPERATOR [facility] Albumin 4.0 3.5 - 5.2 g/dL 02/28/2023 6:01 PM RECEIVING OPERATOR [facility] Bilirubin Total 0.4 <=1.2 mg/dL 02/28/2023 6:01 PM RECEIVING OPERATOR [facility] Alkaline Phosphatase 69 40 - 150 U/L 02/28/2023 6:01 PM RECEIVING OPERATOR [facility] Comment:Reference intervals for this test were updated on 12/21/2022 to more accurately reflect our healthy population. There may be differences in the flagging of prior results with similar values performed with this method. Interpretation of those prior results can be made in the context of the updated reference intervals. AST 46(H) 0 - 45 U/L 02/28/2023 6:01 PM RECEIVING OPERATOR [facility] Comment:Reference intervals for this test were updated on 07/19/2022 to more accurately reflect our healthy population. There may be differences in the flagging of prior results with similar values performed with this method. Interpretation of those prior results can be made in the context of the updated reference intervals. ALT 72(H) 0 - 70 U/L 02/28/2023 6:01 PM RECEIVING OPERATOR [facility] Comment:Reference intervals for this test were updated on 07/19/2022 to more accurately reflect our healthy population. There may be differences in the flagging of prior results with similar values performed with this method. Interpretation of those prior results can be made in the context of the updated reference intervals. Bilirubin Direct <0.20 0.00 - 0.30 mg/dL 02/28/2023 6:01 PM RECEIVING OPERATOR [facility] Blood BLOOD SPECIMEN / Unknown Venipuncture / Unknown 02/28/2023 9:31 AM RECEIVING OPERATOR 02/28/2023 9:32 AM RECEIVING OPERATOR us Marin Liu PA-C LAB - BLOOD ORDERABLES Final R esult [facility] [address] [facility], [address] [place] [address], [facility] [phone] documented in this encounter Visit Diagnoses Diagnosis Bilateral pulmonary embolism (H)- Primary Other pulmonary embolism and infarction documented in this encounter Care Teams Auto Service Writer Relationship Specialty Start Date End Date Erna Sierra PA-C [address] [place] [address] PCP - General 08/27/22 Marin Liu PA-C [address] [place] [id number] Assigned Cancer Care Provider 09/11/22 documented as of this encounter
--- OUTSIDE RECORDS SUMMARY | 2024-10-09 21:05 | XMS_ITS | Clinical Summary ---
Author Organization [facility] Address [address] [place] [address] Care Team Providers Care Scratch Polisher Name Role Phone Erna Sierra PA-C Primary Care Provider [phone] Marin Liu PA-C Unavailable [phone] Allergies Active Allergy Reactions Criticality Noted Date Comments [place]-Containing Products 08/17/2022 Lisinopril Other (See Comments) Low [...] tablet (20 mg) by mouth daily (with dinner). 90 tablet 3 5 Active Active Problems Problem Noted Date Diagnosed Date Bilateral pulmonary embolism 08/17/2022 Immunizations Immunization Administration Dates Next Due COVID-19 MONOVALENT 12+ [...] on file Legal Sex Male 9:12 PM ADULT CARE PROVIDER Gender Identity Not on file Sexual Orientation [...] Care Team (Late st Contact Info) Description 03/08/2025 1:00 PM ADULT CARE PROVIDER Virtual Visit [facility] for Ble[facility]ot[facility] Disorders [address] [place] [phone] Marin Liu PA-C [address] [place] [address] [place] [address] Health Maintenance Due Date Last Done Comments ADVANCE CARE PLANNING 1990 ANNUAL REVIEW OF HM ORDERS 1990 HEPATITIS B VACCINE (1 of 3 - 19+ 3-dose series) 2009 YEARLY PREVENTIVE VISIT 12/21/2018 12/21/2017 COVID-19 VACCINE ( season) 2023 11/09/2021, 12/14/2020, 02/28/2020, Additional history exists PHQ-2 (once per calendar year) 2024 INFLUENZA VACCINE (#1) 2024 , 11/06/2022, 11/09/2021, Additional history exists DTAP/TDAP/TD VACCINE (3 - Td or Tdap) 2034 2024, 08/02/2014 ZOSTER VACCINE (1 of 2) 2040 HIV SCREENING Completed 12/21/2017 HEPATITIS C SCREENING Completed 04/15/2023 HPV VACCINE (No Doses Required) Completed MENINGITIS VACCINE Aged Out No longer eligible based on patient's age to complete this topic PNEUMOCOCCAL VACCINE: PEDIATRICS (0 to 5 YEARS) AND AT-RISK PATIENTS (6 to 49 YEARS) Aged Out No longer eligible based on patient's age to complete this topic Insurance [facility] [employer] Member Subscriber Plan / Payer (Ef fective 2012-Present) Name:Koffi Berger Relation to Subscriber:Employee Name:USHA ROBINS Date of :1990 (Home) [address]: [address] [place] [address] [address] [place] [address] Payer ID:[id number] Group ID:Not on file Type:Not on file Address: [address] Advance Directives For more information, please contact: [phone] * Full Code (Latest Code Status on File) Date Activated Date Inactivated Comments 08/17/2022 12:30 PM 08/17/2022 6:49 PM All basic a nd advanced life-sustaining interventions are performed as appropriate Question Answer Comments Code status determined by: Discussion with patie nt/ legal decision maker Care Teams Scratch Polisher Relationship Specialty Start Date End Date Erna Sierra PA-C [address] [place] [address] PCP - General 08/27/22 Marin Liu PA-C [address] [address] Assigned Cancer Care Provider 09/11/22
[2024-10-09 21:20] VITALS: BP 125/70; PULSE 71; RESP 16; TEMP 36.7; O2SAT 97
[2024-10-09 21:21] VITALS: BP 125/70; PULSE 71; RESP 16; TEMP 36.7
== END 2024-10-09 21:21 | disposition home or self-care (01) ==
LOC: ED 21:02
PROVIDERS: Emergency Provider Emergency Medicine
DX: S91.201A Unspecified open wound of right great toe with damage to nail, initial encounter (principal); W22.8XXA Striking against or struck by other objects, initial encounter; Z79.01 Long term (current) use of anticoagulants
CPT/HCPCS: 99282; 99283